=== PATIENT | female | born 1975 | race Caucasian/White ===

== ENCOUNTER → 2016-03-14 | Outpatient (CLI) | payer OTHER ==
[~2016-03-14] MED LIST: ABILIFY5 MG PO; AMINOPHYLLIN200 MG PO; ASMANEX HF100 MCG/Ac INH; AVPAK AZITHROM250 M1 PO; CELECOXIB200 M1 PO; CIPROFLOXACIN500 MG PO; CYCLOBENZAPRINE10 MG PO; DAYPRO600 M1 PO; DEPO PROVER150 MG/M1 IM; GABAPENTIN TAB600 MG PO; GEMFIBROZIL600 MG PO; GOOD NEIGHBOR L10 MG PO; HYDROXYZINE PAM25 MG PO; LOMOTIL 0.025 M1 TA1 PO; MACROBID100 M1 PO; MELOXICAM7.5 MG PO; MOTRIN800 MG PO; NAPROSYN500 MG PO; NOVAPLUS V0.09 MG/Ac INH; OMEPRAZOLE D/R20 MG PO; ROBAXIN750 MG PO; SYMBICORT1 AE1 INH; TRAMADOL HCL50 MG PO; VISTARIL25 M2 PO; ZOFRAN ODT4 MG SL
== END | disposition home or self-care (01) ==
LOC: CARD 14:00 → EDSTATUS 14:00 → CARD 14:13
DX: R07.9 Chest pain, unspecified (principal); Z82.49 Family history of ischemic heart disease and other diseases of the circulatory system

== ENCOUNTER 2016-05-07 21:14 | Emergency (ER) | payer OTHER ==
[~2016-05-07] VITALS: Ht 157.4 cm; Wt 64.4 kg
[~2016-05-07 21:14] MED LIST changes: -ASMANEX HF100 MCG/Ac INH; -AVPAK AZITHROM250 M1 PO; -CELECOXIB200 M1 PO; -GEMFIBROZIL600 MG PO; -GOOD NEIGHBOR L10 MG PO; -HYDROXYZINE PAM25 MG PO; -MELOXICAM7.5 MG PO; -NOVAPLUS V0.09 MG/Ac INH
[2016-05-07] MEDS ORDERED: ASMANEX HF100 MCG/Ac INH (21:23)
[2016-05-07] MEDS ORDERED: GEMFIBROZIL600 MG PO (21:24)
[2016-05-07] MEDS ORDERED: HYDROXYZINE PAM25 MG PO (21:28)
[2016-05-07] MEDS ORDERED: GOOD NEIGHBOR L10 MG PO (21:29)
[2016-05-07] MEDS ORDERED: CELECOXIB200 M1 PO (21:29)
[2016-05-07] MEDS ORDERED: NOVAPLUS V0.09 MG/Ac INH (21:29)
[2016-05-07] MEDS ORDERED: AVPAK AZITHROM250 M1 PO (21:30)
[2016-05-07] MEDS ORDERED: MELOXICAM7.5 MG PO (22:39)
== END 2016-05-07 22:41 | disposition home or self-care (01) ==
LOC: ED 21:14
DX: R09.1 Pleurisy (principal); Z88.1 Allergy status to other antibiotic agents; Z88.6 Allergy status to analgesic agent; Z88.8 Allergy status to other drugs, medicaments and biological substances; Z90.49 Acquired absence of other specified parts of digestive tract; Z79.899 Other long term (current) drug therapy

== ENCOUNTER 2016-05-13 17:51 | Emergency (ER) | payer OTHER ==
[~2016-05-13] VITALS: Ht 157.4 cm; Wt 66.7 kg
[~2016-05-13 17:51] MED LIST changes: +ASMANEX HF100 MCG/Ac INH; +AVPAK AZITHROM250 M1 PO; +CELECOXIB200 M1 PO; +GEMFIBROZIL600 MG PO; +GOOD NEIGHBOR L10 MG PO; +HYDROXYZINE PAM25 MG PO; +MELOXICAM7.5 MG PO; +NOVAPLUS V0.09 MG/Ac INH
[2016-05-13 18:22] LABS: HEMATOCRIT 38.7 % (37.0-47.0); HEMOGLOBIN 13.5 g/dl (12.0-16.0); MEAN CELL VOLUME 82.7 fl (81.0-99.0); MEAN CORPUSCULAR HGB 28.8 pg (27.0-31.0); MEAN CORPUSCULAR HGB CONC 34.9 g/dl (33.0-37.0); MEAN PLATELET VOLUME 12.5 fl (9.6-12.3); PLATELET COUNT AUTOMATED 212 10*3/uL (130-400); RED BLOOD COUNT 4.68 10*6/uL (4.10-5.10); RED CELL DISTRI WIDTH 13.9 % (0-14.5); WHITE BLOOD COUNT 10.8 10*3/uL (4.8-10.8)
[2016-05-13 18:30] LABS: PROTHROMBIN TIME 10.1 SECONDS (9.0-12.4)
[2016-05-13 18:39] LABS: ALBUMIN 3.4 gm/dl (3.1-4.5); ALKALINE PHOSPHATASE 156 U/L (45-117); BILIRUBIN, TOTAL 0.5 mg/dl (0.2-1.0); BUN 9 mg/dl (7-24); CARBON DIOXIDE 25 mmol/L (21-32); CHLORIDE 104 mmol/L (98-107); CPK 41 U/L (26-192); EST GLOM FILT AFRICAN AMERICAN > 60 ml/min; GLUCOSE 143 mg/dL (65-99); MAGNESIUM 1.8 mg/dL (1.5-2.1); POTASSIUM 3.3 mmol/L (3.5-5.1); SGOT/AST 109 IU/L (3-35); SGPT/ALT 148 U/L (12-78); SODIUM 140 mmol/L (136-145); TOTAL PROTEIN 7.2 gm/dL (6.4-8.2)
[2016-05-13 18:40] LABS: CKMB < 0.5 ng/ml (0.5-3.6); TROPONIN I < 0.015 ng/ml (<0.045)
[2016-05-13 18:50] LABS: ATYPICAL LYMPHS 2 % (0-0); NEUTROPHILS 40 % (47-73); TOTAL CELLS COUNTED 100 #CELLS
[2016-05-13 18:51] LABS: PLATELET SUFFICIENCY NORMAL (NORMAL); TEAR DROP CELLS FEW
[2016-05-13 18:57] LABS: NEUTROPHIL # 4.3 10*3/uL (2.3-7.9)
[2016-05-13 18:58] LABS: LYMPHOCYTE # 6.2 10*3/uL (1.3-4.4)
[2016-05-13 18:59] LABS: MONOCYTE # 0.3 10*3/uL (0.1-1.0)
[2016-05-13 19:21] VITALS: BP 135/88
[2016-05-13 19:57] LABS: BILIRUBIN NEGATIVE (NEGATIVE); BLOOD NEGATIVE (NEGATIVE); CLARITY SL CLOUDY (CLEAR); COLOR YELLOW (YELLOW); GLUCOSE NEGATIVE (NEGATIVE); KETONE TRACE (NEGATIVE); LEUKO ESTERASE NEGATIVE (NEGATIVE); NITRITE NEGATIVE (NEGATIVE); PROTEIN 1+ (NEGATIVE); SPECIFIC GRAVITY 1.025 (1.005-1.030)
[2016-05-13 20:05] LABS: BACTERIA 2+; CALCIUM OXALATE CRYSTALS 3+; EPITHELIAL CELLS 25-30; URINE REFLEX COMMENT YES (NO)
[2016-05-13] MEDS ORDERED: CYCLOBENZAPRINE5 M3 PO (20:16)
[2016-05-13] MEDS ORDERED: CEPHALEXIN500 M1 PO (20:17)
== END 2016-05-13 20:43 | disposition home or self-care (01) ==
LOC: ED 17:51
PROVIDERS: Emergency Medicine; Nurse Practitioner Family
DX: M94.0 Chondrocostal junction syndrome [Tietze] (principal); Z88.1 Allergy status to other antibiotic agents; Z88.6 Allergy status to analgesic agent; Z88.8 Allergy status to other drugs, medicaments and biological substances; Z90.49 Acquired absence of other specified parts of digestive tract; Z79.899 Other long term (current) drug therapy

== ENCOUNTER → 2016-05-16 | Outpatient (CLI) | payer OTHER ==
[~2016-05-16] MED LIST changes: +CEPHALEXIN500 M1 PO; +CYCLOBENZAPRINE5 M3 PO
== END | disposition home or self-care (01) ==
LOC: RAD 17:24
DX: M41.84 Other forms of scoliosis, thoracic region (principal); M41.86 Other forms of scoliosis, lumbar region; M54.5 Low back pain; M54.6 Pain in thoracic spine

== ENCOUNTER → 2016-05-22 | Outpatient (CLI) | payer OTHER | END | disposition home or self-care (01) | LOC: ORTHO 04:00 | DX: M54.5 Low back pain (principal); M25.552 Pain in left hip ==

== ENCOUNTER → 2016-06-12 | Outpatient (CLI) | payer OTHER | END | disposition home or self-care (01) | LOC: MRI 06-09 11:00 | DX: M41.84 Other forms of scoliosis, thoracic region (principal); M25.552 Pain in left hip; M54.5 Low back pain; M25.78 Osteophyte, vertebrae ==

== ENCOUNTER 2016-06-23 14:52 | Emergency (ER) | payer OTHER ==
[~2016-06-23] VITALS: Ht 157.4 cm; Wt 66.7 kg
[2016-06-23 14:57] VITALS: BP 151/88
[2016-06-23 15:25] LABS: HEMATOCRIT 45.1 % (37.0-47.0); HEMOGLOBIN 15.2 g/dl (12.0-16.0); MEAN CELL VOLUME 82.4 fl (81.0-99.0); MEAN CORPUSCULAR HGB 27.8 pg (27.0-31.0); MEAN CORPUSCULAR HGB CONC 33.7 g/dl (33.0-37.0); MEAN PLATELET VOLUME 11.4 fl (9.6-12.3); PLATELET COUNT AUTOMATED 332 10*3/uL (130-400); RED BLOOD COUNT 5.47 10*6/uL (4.10-5.10); RED CELL DISTRI WIDTH 13.2 % (0-14.5); WHITE BLOOD COUNT 11.4 10*3/uL (4.8-10.8)
[2016-06-23 15:40] LABS: ALBUMIN 4.2 gm/dl (3.1-4.5); ALKALINE PHOSPHATASE 106 U/L (45-117); BILIRUBIN, TOTAL 1.1 mg/dl (0.2-1.0); BUN 14 mg/dl (7-24); CARBON DIOXIDE 26 mmol/L (21-32); CHLORIDE 103 mmol/L (98-107); EST GLOM FILT AFRICAN AMERICAN > 60 ml/min; GLUCOSE 122 mg/dL (65-99); POTASSIUM 3.4 mmol/L (3.5-5.1); SGOT/AST 50 IU/L (3-35); SGPT/ALT 62 U/L (12-78); SODIUM 140 mmol/L (136-145); TOTAL PROTEIN 8.4 gm/dL (6.4-8.2)
[2016-06-23 15:47] LABS: ATYPICAL LYMPHS 3 % (0-0); EOSINOPHIL # 0.1 10*3/uL (0-0.4); EOSINOPHILS 1 % (1-4); LYMPHOCYTE # 7.6 10*3/uL (1.3-4.4); MONOCYTE # 0.6 10*3/uL (0.1-1.0); NEUTROPHIL # 3.1 10*3/uL (2.3-7.9); NEUTROPHILS 27 % (47-73); PLATELET SUFFICIENCY NORMAL (NORMAL); TOTAL CELLS COUNTED 100 #CELLS
[2016-06-23 16:16] LABS: BILIRUBIN NEGATIVE (NEGATIVE); BLOOD NEGATIVE (NEGATIVE); CLARITY CLEAR (CLEAR); COLOR YELLOW (YELLOW); GLUCOSE NEGATIVE (NEGATIVE); KETONE NEGATIVE (NEGATIVE); LEUKO ESTERASE 1+ (NEGATIVE); NITRITE NEGATIVE (NEGATIVE); PROTEIN NEGATIVE (NEGATIVE)
[2016-06-23 16:23] LABS: BACTERIA 1+; CALCIUM OXALATE CRYSTALS 1+; EPITHELIAL CELLS 30-35; RBC 0-2 rbc/hpf (0-2); URINE REFLEX COMMENT YES (NO)
[2016-06-23] MEDS ORDERED: MACROBID100 M1 PO (16:33)
== END 2016-06-23 16:40 | disposition home or self-care (01) ==
LOC: ED 14:52
PROVIDERS: Nurse Practitioner Family
DX: N39.0 Urinary tract infection, site not specified (principal); R03.0 Elevated blood-pressure reading, without diagnosis of hypertension; Z88.1 Allergy status to other antibiotic agents; Z88.6 Allergy status to analgesic agent; Z88.8 Allergy status to other drugs, medicaments and biological substances; Z79.899 Other long term (current) drug therapy

== ENCOUNTER 2016-07-03 15:21 | Emergency (ER) | payer OTHER ==
[~2016-07-03] VITALS: Ht 157.4 cm; Wt 65.8 kg
[2016-07-03 15:37] VITALS: BP 150/90
[2016-07-03 17:35] LABS: BILIRUBIN NEGATIVE (NEGATIVE); BLOOD NEGATIVE (NEGATIVE); CLARITY CLEAR (CLEAR); COLOR YELLOW (YELLOW); GLUCOSE NEGATIVE (NEGATIVE); KETONE NEGATIVE (NEGATIVE); LEUKO ESTERASE NEGATIVE (NEGATIVE); NITRITE NEGATIVE (NEGATIVE); PROTEIN NEGATIVE (NEGATIVE); SPECIFIC GRAVITY 1.025 (1.005-1.030); UROBILINOGEN 0.2 E.U./dl (0.2-1.0)
[2016-07-03 17:43] LABS: BACTERIA 2+; CALCIUM OXALATE CRYSTALS 2+; URINE REFLEX COMMENT YES (NO)
[2016-07-03] MEDS ORDERED: MEDROL DOSEPAK4 MG PO (17:48)
[2016-07-03] MEDS ORDERED: CYCLOBENZAPRINE5 M3 PO (17:48)
== END 2016-07-03 15:44 | disposition home or self-care (01) ==
LOC: ED 15:21
PROVIDERS: Physician Assistant
DX: M54.16 Radiculopathy, lumbar region (principal); Z88.1 Allergy status to other antibiotic agents; Z88.6 Allergy status to analgesic agent; Z88.8 Allergy status to other drugs, medicaments and biological substances; Z90.49 Acquired absence of other specified parts of digestive tract; Z79.899 Other long term (current) drug therapy

== ENCOUNTER 2016-07-11 21:48 | Emergency (ER) | payer OTHER ==
[~2016-07-11] VITALS: Ht 157.4 cm; Wt 67.1 kg
[~2016-07-11 21:48] MED LIST changes: +MEDROL DOSEPAK4 MG PO
[2016-07-11 23:17] LABS: HEMATOCRIT 41.4 % (37.0-47.0); HEMOGLOBIN 14.1 g/dl (12.0-16.0); MEAN CELL VOLUME 82.5 fl (81.0-99.0); MEAN CORPUSCULAR HGB 28.1 pg (27.0-31.0); MEAN CORPUSCULAR HGB CONC 34.1 g/dl (33.0-37.0); MEAN PLATELET VOLUME 10.8 fl (9.6-12.3); PLATELET COUNT AUTOMATED 340 10*3/uL (130-400); RED BLOOD COUNT 5.02 10*6/uL (4.10-5.10); RED CELL DISTRI WIDTH 13.8 % (0-14.5); WHITE BLOOD COUNT 10.2 10*3/uL (4.8-10.8)
[2016-07-11 23:26] LABS: INTERNATIONAL NORM RATIO 0.9 (2.0-3.5); PROTHROMBIN TIME 9.4 SECONDS (9.0-12.4)
[2016-07-11 23:31] LABS: ALBUMIN 3.6 gm/dl (3.1-4.5); ALKALINE PHOSPHATASE 104 U/L (45-117); BILIRUBIN, DIRECT < 0.1 mg/dL (0.0-0.2); BILIRUBIN, TOTAL 0.5 mg/dl (0.2-1.0); C-REACTIVE PROTEIN 0.31 MG/DL (0-0.3); SGOT/AST 29 IU/L (3-35); SGPT/ALT 45 U/L (12-78); TOTAL PROTEIN 7.3 gm/dL (6.4-8.2)
[2016-07-11 23:32] LABS: HEMOGLOBIN A1c 7.2 % (4.8-5.6)
[2016-07-11 23:35] LABS: EOSINOPHIL # 0.1 10*3/uL (0-0.4); EOSINOPHILS 1 % (1-4); LYMPHOCYTE # 4.4 10*3/uL (1.3-4.4); MONOCYTE # 0.6 10*3/uL (0.1-1.0); NEUTROPHIL # 5.1 10*3/uL (2.3-7.9); NEUTROPHILS 50 % (47-73); PLATELET SUFFICIENCY NORMAL (NORMAL); TOTAL CELLS COUNTED 100 #CELLS
[2016-07-11 23:40] LABS: BILIRUBIN NEGATIVE (NEGATIVE); BLOOD NEGATIVE (NEGATIVE); CLARITY CLEAR (CLEAR); COLOR YELLOW (YELLOW); GLUCOSE 3+ (NEGATIVE); KETONE NEGATIVE (NEGATIVE); LEUKO ESTERASE NEGATIVE (NEGATIVE); NITRITE NEGATIVE (NEGATIVE); PH 5.5 (5.0-9.0); PROTEIN NEGATIVE (NEGATIVE); SPECIFIC GRAVITY <= 1.005 (1.005-1.030); UROBILINOGEN 0.2 E.U./dl (0.2-1.0)
[2016-07-11 23:51] LABS: WBC 0-2 wbc/hpf (0-5); YEAST TRACE
[2016-07-11 23:52] LABS: URINE REFLEX COMMENT NO (NO)
[2016-07-12 00:20] LABS: POTASSIUM 3.8 mmol/L (3.5-5.1)
[2016-07-12] MEDS ORDERED: GLUCOPHAGE500 M1 PO (01:27)
[2016-07-12 01:50] VITALS: BP 112/64
== END 2016-07-12 02:25 | disposition home or self-care (01) ==
LOC: ED 21:48
PROVIDERS: Emergency Medicine Emergency Medical Services
DX: R73.9 Hyperglycemia, unspecified (principal); E11.9 Type 2 diabetes mellitus without complications; Z88.8 Allergy status to other drugs, medicaments and biological substances; Z88.6 Allergy status to analgesic agent; Z79.899 Other long term (current) drug therapy; Z87.19 Personal history of other diseases of the digestive system

== ENCOUNTER 2016-07-14 12:56 | Emergency (ER) | payer OTHER ==
[~2016-07-14] VITALS: Wt 66.2 kg
[~2016-07-14 12:56] MED LIST changes: +GLUCOPHAGE500 M1 PO
[2016-07-14 13:06] VITALS: BP 140/99
[2016-07-14 13:43] LABS: HEMATOCRIT 45.2 % (37.0-47.0); HEMOGLOBIN 15.1 g/dl (12.0-16.0); MEAN CELL VOLUME 82.9 fl (81.0-99.0); MEAN CORPUSCULAR HGB 27.7 pg (27.0-31.0); MEAN CORPUSCULAR HGB CONC 33.4 g/dl (33.0-37.0); MEAN PLATELET VOLUME 10.6 fl (9.6-12.3); PLATELET COUNT AUTOMATED 364 10*3/uL (130-400); RED BLOOD COUNT 5.45 10*6/uL (4.10-5.10); WHITE BLOOD COUNT 9.1 10*3/uL (4.8-10.8)
[2016-07-14 13:58] LABS: ALBUMIN 4.1 gm/dl (3.1-4.5); ALKALINE PHOSPHATASE 109 U/L (45-117); BILIRUBIN, TOTAL 0.8 mg/dl (0.2-1.0); BUN 9 mg/dl (7-24); CARBON DIOXIDE 23 mmol/L (21-32); CHLORIDE 100 mmol/L (98-107); EST GLOM FILT AFRICAN AMERICAN > 60 ml/min; GLUCOSE 201 mg/dL (65-99); POTASSIUM 3.8 mmol/L (3.5-5.1); SGOT/AST 35 IU/L (3-35); SGPT/ALT 55 U/L (12-78); SODIUM 136 mmol/L (136-145); TOTAL PROTEIN 8.4 gm/dL (6.4-8.2)
[2016-07-14 14:03] LABS: ATYPICAL LYMPHS 2 % (0-0); LYMPHOCYTE # 5.8 10*3/uL (1.3-4.4); MONOCYTE # 0.4 10*3/uL (0.1-1.0); NEUTROPHIL # 2.9 10*3/uL (2.3-7.9); NEUTROPHILS 32 % (47-73); PLATELET SUFFICIENCY NORMAL (NORMAL); TOTAL CELLS COUNTED 100 #CELLS
[2016-07-14 14:06] LABS: BILIRUBIN NEGATIVE (NEGATIVE); BLOOD NEGATIVE (NEGATIVE); CLARITY CLEAR (CLEAR); COLOR YELLOW (YELLOW); GLUCOSE NEGATIVE (NEGATIVE); KETONE TRACE (NEGATIVE); LEUKO ESTERASE NEGATIVE (NEGATIVE); NITRITE NEGATIVE (NEGATIVE); PH 5.5 (5.0-9.0); PROTEIN 1+ (NEGATIVE); UROBILINOGEN 0.2 E.U./dl (0.2-1.0)
[2016-07-14 14:23] LABS: BACTERIA TRACE; EPITHELIAL CELLS 16-20; URINE REFLEX COMMENT NO (NO)
== END 2016-07-14 14:35 | disposition home or self-care (01) ==
LOC: ED 12:56
PROVIDERS: Nurse Practitioner Family
DX: K08.89 Other specified disorders of teeth and supporting structures (principal); R73.9 Hyperglycemia, unspecified; R03.0 Elevated blood-pressure reading, without diagnosis of hypertension; Z90.49 Acquired absence of other specified parts of digestive tract; Z98.890 Other specified postprocedural states; Z79.899 Other long term (current) drug therapy; Z88.6 Allergy status to analgesic agent; Z88.8 Allergy status to other drugs, medicaments and biological substances

== ENCOUNTER 2016-07-17 20:34 | Emergency (ER) | payer OTHER ==
[~2016-07-17] VITALS: Ht 160 cm; Wt 65.8 kg
[2016-07-17 20:40] VITALS: BP 151/87
[2016-07-17] MEDS ORDERED: CEFDINIR300 MG PO (20:41)
[2016-07-17] MEDS ORDERED: FLONASE ALLERG9.9 ML NS (22:27)
[2016-07-17] MEDS ORDERED: ZYRTEC10 MG PO (22:27)
== END 2016-07-17 22:33 | disposition home or self-care (01) ==
LOC: ED 20:34
DX: J02.9 Acute pharyngitis, unspecified (principal); L01.00 Impetigo, unspecified; R05 Cough; Z88.1 Allergy status to other antibiotic agents; Z88.6 Allergy status to analgesic agent; Z88.8 Allergy status to other drugs, medicaments and biological substances; Z90.49 Acquired absence of other specified parts of digestive tract; Z79.899 Other long term (current) drug therapy

== ENCOUNTER 2016-07-22 10:10 | Emergency (ER) | payer OTHER ==
[~2016-07-22] VITALS: Ht 162.5 cm; Wt 65.3 kg
[~2016-07-22 10:10] MED LIST changes: +CEFDINIR300 MG PO; +FLONASE ALLERG9.9 ML NS; +ZYRTEC10 MG PO
[2016-07-22 12:02] VITALS: BP 129/91
== END 2016-07-22 14:08 | disposition home or self-care (01) ==
LOC: ED 10:10
DX: S00.03XA Contusion of scalp, initial encounter (principal); S16.1XXA Strain of muscle, fascia and tendon at neck level, initial encounter; R42 Dizziness and giddiness; R03.0 Elevated blood-pressure reading, without diagnosis of hypertension; Z88.6 Allergy status to analgesic agent; Z88.1 Allergy status to other antibiotic agents; Z88.8 Allergy status to other drugs, medicaments and biological substances; Z90.49 Acquired absence of other specified parts of digestive tract; Z79.899 Other long term (current) drug therapy; W22.8XXA Striking against or struck by other objects, initial encounter; Y93.89 Activity, other specified; Y92.9 Unspecified place or not applicable; Y99.9 Unspecified external cause status

== ENCOUNTER 2016-08-22 10:43 | Emergency (ER) | payer OTHER ==
[~2016-08-22] VITALS: Ht 157.4 cm; Wt 64.4 kg
[2016-08-22 10:52] VITALS: BP 152/99
[2016-08-22] MEDS ORDERED: PREDNISONE10 MG PO (10:56)
== END 2016-08-22 11:37 | disposition home or self-care (01) ==
LOC: ED 10:43
DX: L30.9 Dermatitis, unspecified (principal); R03.0 Elevated blood-pressure reading, without diagnosis of hypertension; Z88.6 Allergy status to analgesic agent; Z88.8 Allergy status to other drugs, medicaments and biological substances; Z90.49 Acquired absence of other specified parts of digestive tract; Z79.899 Other long term (current) drug therapy

== ENCOUNTER 2016-08-28 | Emergency (ER) | payer OTHER ==
[~2016-08-28] VITALS: Ht 162.5 cm; Wt 63.5 kg
[~2016-08-28] MED LIST changes: +PREDNISONE10 MG PO
[2016-08-28 00:57] LABS: BILIRUBIN NEGATIVE (NEGATIVE); BLOOD NEGATIVE (NEGATIVE); CLARITY CLEAR (CLEAR); COLOR YELLOW (YELLOW); GLUCOSE 3+ (NEGATIVE); KETONE TRACE (NEGATIVE); LEUKO ESTERASE NEGATIVE (NEGATIVE); NITRITE NEGATIVE (NEGATIVE); PROTEIN NEGATIVE (NEGATIVE); UROBILINOGEN 0.2 E.U./dl (0.2-1.0)
[2016-08-28 00:58] LABS: BASO # 0.1 10*3/uL (0.0-0.1); BASO % 0.8 % (0.0-1.0); EOS % 0.3 % (1.0-4.0); HEMATOCRIT 41.1 % (37.0-47.0); HEMOGLOBIN 14.1 g/dl (12.0-16.0); IG # 0.2 10*3/uL (0.0-0.1); LYMPH # 4.5 10*3/uL (1.3-4.4); LYMPH % 37.8 % (27.0-41.0); MEAN CELL VOLUME 80.1 fl (81.0-99.0); MEAN CORPUSCULAR HGB 27.5 pg (27.0-31.0); MEAN CORPUSCULAR HGB CONC 34.3 g/dl (33.0-37.0); MEAN PLATELET VOLUME 11.5 fl (9.6-12.3); MONO # 0.5 10*3/uL (0.1-1.0); MONO % 4.1 % (3.0-9.0); NEUT # 6.7 10*3/uL (2.3-7.9); NEUT % 55.4 % (47.0-73.0); PLATELET COUNT AUTOMATED 379 10*3/uL (130-400); RED BLOOD COUNT 5.13 10*6/uL (4.10-5.10); RED CELL DISTRI WIDTH 14.2 % (0-14.5)
[2016-08-28 01:04] LABS: EPITHELIAL CELLS 15-20
[2016-08-28 01:05] LABS: CALCIUM OXALATE CRYSTALS 1+; RBC 0-2 rbc/hpf (0-2); URINE REFLEX COMMENT NO (NO)
[2016-08-28 01:15] LABS: ALBUMIN 3.8 gm/dl (3.1-4.5); ALKALINE PHOSPHATASE 83 U/L (45-117); BILIRUBIN, TOTAL 0.7 mg/dl (0.2-1.0); BUN 19 mg/dl (7-24); CARBON DIOXIDE 25 mmol/L (21-32); CHLORIDE 99 mmol/L (98-107); EST GLOM FILT AFRICAN AMERICAN > 60 ml/min; GLUCOSE 249 mg/dL (65-99); POTASSIUM 4.1 mmol/L (3.5-5.1); SGOT/AST 14 IU/L (3-35); SGPT/ALT 28 U/L (12-78); SODIUM 137 mmol/L (136-145); TOTAL PROTEIN 7.5 gm/dL (6.4-8.2)
[2016-08-28 01:16] LABS: TROPONIN I < 0.015 ng/ml (<0.045)
[2016-08-28 01:20] VITALS: BP 148/92
== END 2016-08-28 01:43 | disposition home or self-care (01) ==
LOC: ED
PROVIDERS: Nurse Practitioner Family
DX: R07.89 Other chest pain (principal); E11.65 Type 2 diabetes mellitus with hyperglycemia; Z79.899 Other long term (current) drug therapy; Z88.8 Allergy status to other drugs, medicaments and biological substances; Z88.6 Allergy status to analgesic agent

== ENCOUNTER 2016-09-14 18:23 | Emergency (ER) | payer OTHER ==
[~2016-09-14] VITALS: Ht 157.4 cm; Wt 64.9 kg
[2016-09-14 19:12] VITALS: BP 125/78
[2016-09-14] MEDS ORDERED: CEPHALEXIN500 M1 PO (19:24)
[2016-09-14] MEDS ORDERED: Bactroban Oint22 GM T (19:24)
== END 2016-09-14 22:01 | disposition home or self-care (01) ==
LOC: ED 18:23
DX: L01.00 Impetigo, unspecified (principal); Z88.6 Allergy status to analgesic agent; Z88.8 Allergy status to other drugs, medicaments and biological substances; Z90.49 Acquired absence of other specified parts of digestive tract; Z79.899 Other long term (current) drug therapy

== ENCOUNTER 2016-09-30 17:16 | Emergency (ER) | payer OTHER ==
[~2016-09-30] VITALS: Ht 157.4 cm; Wt 64.9 kg
[~2016-09-30 17:16] MED LIST changes: +Bactroban Oint22 GM T
[2016-09-30 17:22] VITALS: BP 133/84
== END 2016-09-30 19:36 | disposition home or self-care (01) ==
LOC: ED 17:16
DX: S86.912A Strain of unspecified muscle(s) and tendon(s) at lower leg level, left leg, initial encounter (principal); S70.02XA Contusion of left hip, initial encounter; Z88.1 Allergy status to other antibiotic agents; Z88.6 Allergy status to analgesic agent; Z88.8 Allergy status to other drugs, medicaments and biological substances; Z90.49 Acquired absence of other specified parts of digestive tract; W18.30XA Fall on same level, unspecified, initial encounter; Y93.89 Activity, other specified; Y92.9 Unspecified place or not applicable; Y99.9 Unspecified external cause status

== ENCOUNTER 2016-10-15 22:55 | Emergency (ER) | payer OTHER ==
[~2016-10-15] VITALS: Ht 157.4 cm; Wt 66.7 kg
[2016-10-15 23:44] LABS: HEMATOCRIT 37.1 % (37.0-47.0); HEMOGLOBIN 13.2 g/dl (12.0-16.0); MEAN CELL VOLUME 82.8 fl (81.0-99.0); MEAN CORPUSCULAR HGB 29.5 pg (27.0-31.0); MEAN CORPUSCULAR HGB CONC 35.6 g/dl (33.0-37.0); MEAN PLATELET VOLUME 11.5 fl (9.6-12.3); PLATELET COUNT AUTOMATED 331 10*3/uL (130-400); RED BLOOD COUNT 4.48 10*6/uL (4.10-5.10); RED CELL DISTRI WIDTH 13.3 % (0-14.5)
[2016-10-16] LABS: ALBUMIN 4.4 gm/dl (3.1-4.5); ALKALINE PHOSPHATASE 86 U/L (45-117); BUN 12 mg/dl (7-24); CHLORIDE 106 mmol/L (98-107); CREATININE 0.88 mg/dL (0.55-1.02); LIPASE 362 U/L (73-393); MAGNESIUM 2.1 mg/dL (1.5-2.1); POTASSIUM 3.1 mmol/L (3.5-5.1); SGOT/AST 23 IU/L (3-35); SGPT/ALT 38 U/L (12-78); SODIUM 139 mmol/L (136-145); TOTAL PROTEIN 8.2 gm/dL (6.4-8.2)
[2016-10-16 00:02] LABS: B-hCG (QUALITATIVE) NEGATIVE (NEGATIVE)
[2016-10-16 00:06] LABS: TROPONIN I < 0.015 ng/ml (<0.045)
[2016-10-16 00:08] LABS: BASOPHILS 1 % (0-1); TOTAL CELLS COUNTED 100 #CELLS
[2016-10-16 00:09] LABS: PLATELET SUFFICIENCY NORMAL (NORMAL); POLYCHROMASIA SLIGHT
[2016-10-16 00:16] VITALS: BP 157/90
[2016-10-16 01:28] LABS: BILIRUBIN NEGATIVE (NEGATIVE); BLOOD NEGATIVE (NEGATIVE); CLARITY CLEAR (CLEAR); COLOR YELLOW (YELLOW); GLUCOSE NEGATIVE (NEGATIVE); KETONE NEGATIVE (NEGATIVE); LEUKO ESTERASE NEGATIVE (NEGATIVE); NITRITE NEGATIVE (NEGATIVE); PH 5.5 (5.0-9.0); SPECIFIC GRAVITY <= 1.005 (1.005-1.030); UROBILINOGEN 0.2 E.U./dl (0.2-1.0)
[2016-10-16 01:35] LABS: BACTERIA TRACE; RBC 0-2 rbc/hpf (0-2); WBC 0-2 wbc/hpf (0-5)
[2016-10-17] MEDS ORDERED: CYCLOBENZAPRINE10 MG PO (19:14)
== END 2016-10-16 01:57 | disposition home or self-care (01) ==
LOC: ED 22:55
PROVIDERS: Emergency Medicine Emergency Medical Services
DX: G43.909 Migraine, unspecified, not intractable, without status migrainosus (principal); I15.9 Secondary hypertension, unspecified; Z88.6 Allergy status to analgesic agent; Z88.8 Allergy status to other drugs, medicaments and biological substances; Z79.899 Other long term (current) drug therapy

== ENCOUNTER 2016-10-17 17:34 | Emergency (ER) | payer OTHER ==
[~2016-10-17] VITALS: Wt 64.9 kg
[2016-10-17 17:43] VITALS: BP 154/84
[2016-10-17] MEDS ORDERED: CYCLOBENZAPRINE10 MG PO (19:14)
== END 2016-10-17 19:19 | disposition home or self-care (01) ==
LOC: ED 17:34
DX: M54.30 Sciatica, unspecified side (principal); Z88.6 Allergy status to analgesic agent; Z88.8 Allergy status to other drugs, medicaments and biological substances; Z79.899 Other long term (current) drug therapy; W10.8XXA Fall (on) (from) other stairs and steps, initial encounter; Y93.89 Activity, other specified; Y92.811 Bus as the place of occurrence of the external cause; Y99.8 Other external cause status

== ENCOUNTER → 2016-12-07 | Outpatient (CLI) | payer OTHER ==
[2016-12-07 11:31] LABS: BILIRUBIN NEGATIVE (NEGATIVE); BLOOD NEGATIVE (NEGATIVE); CLARITY SL CLOUDY (CLEAR); COLOR YELLOW (YELLOW); GLUCOSE NEGATIVE (NEGATIVE); KETONE NEGATIVE (NEGATIVE); LEUKO ESTERASE NEGATIVE (NEGATIVE); NITRITE NEGATIVE (NEGATIVE); SPECIFIC GRAVITY 1.025 (1.005-1.030); UROBILINOGEN 0.2 E.U./dl (0.2-1.0)
[2016-12-07 11:41] LABS: BACTERIA TRACE; EPITHELIAL CELLS 21-30
[2016-12-07 11:42] LABS: RBC 0-2 rbc/hpf (0-2)
[2016-12-07 11:49] LABS: ALBUMIN 4.7 gm/dl (3.1-4.5); ALKALINE PHOSPHATASE 101 U/L (45-117); BILIRUBIN, DIRECT 0.2 mg/dL (0.0-0.2); BUN 20 mg/dl (7-24); CHLORIDE 101 mmol/L (98-107); CHOLESTEROL 145 mg/dL (<200); CREATININE 0.85 mg/dL (0.55-1.02); HDL CHOLESTEROL 48 mg/dl (40-60); LDL CHOLESTEROL 42 mg/dL (9-159); POTASSIUM 3.5 mmol/L (3.5-5.1); SGOT/AST 25 IU/L (3-35); SGPT/ALT 56 U/L (12-78); SODIUM 135 mmol/L (136-145); TOTAL PROTEIN 8.6 gm/dL (6.4-8.2); TRIGLYCERIDES 276 mg/dl (<150); VLDL CHOLESTEROL 55 mg/dL (6-40)
[2016-12-07 12:11] LABS: VITAMIN D, 25-HYDROXY 20.7 ng/mL (30-100)
== END | disposition home or self-care (01) ==
LOC: LAB 10:49
PROVIDERS: Internal Medicine; Obstetrics & Gynecology
DX: N39.0 Urinary tract infection, site not specified (principal); E11.40 Type 2 diabetes mellitus with diabetic neuropathy, unspecified; E11.65 Type 2 diabetes mellitus with hyperglycemia; E55.9 Vitamin D deficiency, unspecified; E78.5 Hyperlipidemia, unspecified; R63.5 Abnormal weight gain

== ENCOUNTER → 2016-12-29 | Outpatient (CLI) | payer OTHER ==
[~2016-12-29] MED LIST changes: +LOPID600 M1 PO; +MULTIPLE VITAM1 EAC1 PO; +NATURE'S BLEND F1 MG PO; +PROZAC20 MG PO; +VITAMIN D400 I1 PO
== END | disposition home or self-care (01) ==
LOC: CT 03:09
DX: R91.1 Solitary pulmonary nodule (principal); J44.9 Chronic obstructive pulmonary disease, unspecified; Z90.49 Acquired absence of other specified parts of digestive tract

== ENCOUNTER → 2017-01-03 | Day surgery (SDC) | payer OTHER ==
[~2017-01-03] VITALS: Ht 157.4 cm; Wt 68.5 kg
[~2017-01-03] MED LIST changes: +DICYCLOMINE HCL10 MG PO
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
[2017-01-03 07:02] VITALS: BP 138/74
[2017-01-03 08:00] VITALS: BP 118/71
[2017-01-03 08:15] VITALS: BP 116/65
[2017-01-03 08:26] VITALS: BP 118/68
== END | disposition home or self-care (01) ==
LOC: SDC 12-29 14:00
DX: K51.90 Ulcerative colitis, unspecified, without complications (principal); E11.9 Type 2 diabetes mellitus without complications; I10 Essential (primary) hypertension; J45.909 Unspecified asthma, uncomplicated; F31.9 Bipolar disorder, unspecified; Z90.49 Acquired absence of other specified parts of digestive tract; G43.909 Migraine, unspecified, not intractable, without status migrainosus

== ENCOUNTER 2017-01-04 16:38 | Emergency (ER) | payer OTHER ==
[~2017-01-04] VITALS: Wt 70.3 kg
[2017-01-04 16:44] VITALS: BP 147/100
[2017-01-04 18:35] LABS: BASO % 0.5 % (0.0-1.0); EOS # 0.1 10*3/uL (0.0-0.4); EOS % 0.8 % (1.0-4.0); HEMATOCRIT 37.2 % (37.0-47.0); HEMOGLOBIN 12.9 g/dl (12.0-16.0); LYMPH % 57.3 % (27.0-41.0); MEAN CELL VOLUME 85.7 fl (81.0-99.0); MEAN CORPUSCULAR HGB 29.7 pg (27.0-31.0); MEAN CORPUSCULAR HGB CONC 34.7 g/dl (33.0-37.0); MEAN PLATELET VOLUME 11.4 fl (9.6-12.3); MONO # 0.5 10*3/uL (0.1-1.0); MONO % 5.2 % (3.0-9.0); NEUT # 3.1 10*3/uL (2.3-7.9); NEUT % 35.7 % (47.0-73.0); PLATELET COUNT AUTOMATED 317 10*3/uL (130-400); RED BLOOD COUNT 4.34 10*6/uL (4.10-5.10); RED CELL DISTRI WIDTH 14.2 % (0-14.5); WHITE BLOOD COUNT 8.7 10*3/uL (4.8-10.8)
[2017-01-04 18:36] LABS: BILIRUBIN NEGATIVE (NEGATIVE); BLOOD NEGATIVE (NEGATIVE); CLARITY CLEAR (CLEAR); COLOR YELLOW (YELLOW); GLUCOSE 1+ (NEGATIVE); KETONE NEGATIVE (NEGATIVE); LEUKO ESTERASE NEGATIVE (NEGATIVE); NITRITE NEGATIVE (NEGATIVE); SPECIFIC GRAVITY 1.015 (1.005-1.030); UROBILINOGEN 0.2 E.U./dl (0.2-1.0)
[2017-01-04 18:43] LABS: CALCIUM OXALATE CRYSTALS 1+; EPITHELIAL CELLS 0-2; WBC 0-2 wbc/hpf (0-5)
[2017-01-04 18:49] LABS: ALBUMIN 4.1 gm/dl (3.1-4.5); ALKALINE PHOSPHATASE 95 U/L (45-117); BUN 11 mg/dl (7-24); CHLORIDE 104 mmol/L (98-107); CREATININE 0.84 mg/dL (0.55-1.02); POTASSIUM 3.3 mmol/L (3.5-5.1); SGOT/AST 16 IU/L (3-35); SGPT/ALT 36 U/L (12-78); SODIUM 137 mmol/L (136-145); TOTAL PROTEIN 7.5 gm/dL (6.4-8.2)
== END 2017-01-04 19:50 | disposition home or self-care (01) ==
LOC: ED 16:38
PROVIDERS: Nurse Practitioner
DX: R25.3 Fasciculation (principal); Z88.8 Allergy status to other drugs, medicaments and biological substances; Z79.899 Other long term (current) drug therapy; Z90.49 Acquired absence of other specified parts of digestive tract

== ENCOUNTER 2017-02-19 12:31 | Emergency (ER) | payer OTHER ==
[~2017-02-19] VITALS: Ht 157.4 cm; Wt 65.8 kg
[2017-02-19 12:39] VITALS: BP 138/77
[2017-02-19 13:23] LABS: BILIRUBIN NEGATIVE (NEGATIVE); BLOOD 2+ (NEGATIVE); CLARITY CLOUDY (CLEAR); COLOR YELLOW (YELLOW); GLUCOSE 3+ (NEGATIVE); KETONE NEGATIVE (NEGATIVE); NITRITE NEGATIVE (NEGATIVE); PH 5.5 (5.0-9.0); UROBILINOGEN 0.2 E.U./dl (0.2-1.0)
[2017-02-19 13:42] LABS: BACTERIA 2+; LEUKO ESTERASE 2+ (NEGATIVE); RBC 41-50 rbc/hpf (0-2); WBC 41-50 wbc/hpf (0-5)
[2017-02-19] MEDS ORDERED: MACROBID100 M1 PO (14:01)
[2017-02-19] MEDS ORDERED: PYRIDIUM200 M1 PO (14:01)
== END 2017-02-19 14:13 | disposition home or self-care (01) ==
LOC: ED 12:31
PROVIDERS: Nurse Practitioner Family
DX: N39.0 Urinary tract infection, site not specified (principal); Z90.49 Acquired absence of other specified parts of digestive tract; Z98.890 Other specified postprocedural states; Z79.899 Other long term (current) drug therapy; Z88.8 Allergy status to other drugs, medicaments and biological substances; Z88.1 Allergy status to other antibiotic agents

== ENCOUNTER 2017-04-20 16:49 | Emergency (ER) | payer OTHER ==
[~2017-04-20] VITALS: Wt 65.8 kg
[~2017-04-20 16:49] MED LIST changes: +PYRIDIUM200 M1 PO
[2017-04-20 17:04] LABS: HEMOGLOBIN 14.7 g/dl (12.0-16.0); MEAN CELL VOLUME 85.5 fl (81.0-99.0); MEAN CORPUSCULAR HGB 29.2 pg (27.0-31.0); MEAN CORPUSCULAR HGB CONC 34.2 g/dl (33.0-37.0); MEAN PLATELET VOLUME 11.5 fl (9.6-12.3); PLATELET COUNT AUTOMATED 299 10*3/uL (130-400); RED BLOOD COUNT 5.03 10*6/uL (4.10-5.10); RED CELL DISTRI WIDTH 13.1 % (0-14.5); WHITE BLOOD COUNT 11.7 10*3/uL (4.8-10.8)
[2017-04-20 17:14] LABS: ACT PARTIAL THROMBO TIME 21.5 SECONDS (20.8-31.5)
[2017-04-20 17:22] LABS: ALBUMIN 4.4 gm/dl (3.1-4.5); ALKALINE PHOSPHATASE 107 U/L (45-117); BUN 11 mg/dl (7-24); CHLORIDE 106 mmol/L (98-107); CREATININE 1.06 mg/dL (0.55-1.02); POTASSIUM 3.1 mmol/L (3.5-5.1); SGOT/AST 19 IU/L (3-35); SGPT/ALT 48 U/L (12-78); SODIUM 139 mmol/L (136-145); TOTAL PROTEIN 8.2 gm/dL (6.4-8.2)
[2017-04-20 17:23] LABS: TROPONIN I < 0.015 ng/ml (<0.045)
[2017-04-20 17:39] LABS: TOTAL CELLS COUNTED 100 #CELLS
[2017-04-20 17:40] LABS: PLATELET SUFFICIENCY NORMAL (NORMAL); POLYCHROMASIA SLIGHT
[2017-04-20 18:55] VITALS: BP 117/60
[2017-04-20] MEDS ORDERED: Fioricet 325 MG1 TAB PO (19:00)
== END 2017-04-20 19:05 | disposition home or self-care (01) ==
LOC: ED 16:49
PROVIDERS: Emergency Medicine
DX: R09.1 Pleurisy (principal); E78.5 Hyperlipidemia, unspecified; E11.9 Type 2 diabetes mellitus without complications; F17.200 Nicotine dependence, unspecified, uncomplicated; I10 Essential (primary) hypertension; G43.909 Migraine, unspecified, not intractable, without status migrainosus; Z90.49 Acquired absence of other specified parts of digestive tract; Z98.890 Other specified postprocedural states; Z79.899 Other long term (current) drug therapy; Z88.8 Allergy status to other drugs, medicaments and biological substances; Z88.6 Allergy status to analgesic agent

== ENCOUNTER 2017-05-01 17:24 | Emergency (ER) | payer OTHER ==
[~2017-05-01] VITALS: Ht 157.4 cm; Wt 65.8 kg
[~2017-05-01 17:24] MED LIST changes: +Fioricet 325 MG1 TAB PO
[2017-05-01 17:38] VITALS: BP 145/90
[2017-05-01] MEDS ORDERED: CYCLOBENZAPRINE10 MG PO (17:47)
[2017-05-01] MEDS ORDERED: NAPROSYN500 MG PO (17:47)
[2017-05-01] MEDS ORDERED: ZANAFLEX2 M1 PO (18:03)
== END 2017-05-01 17:50 | disposition home or self-care (01) ==
LOC: ED 17:24
DX: M54.40 Lumbago with sciatica, unspecified side (principal); Z88.1 Allergy status to other antibiotic agents; Z88.6 Allergy status to analgesic agent; Z88.8 Allergy status to other drugs, medicaments and biological substances; Z79.899 Other long term (current) drug therapy

== ENCOUNTER 2017-05-06 18:52 | Emergency (ER) | payer OTHER ==
[~2017-05-06] VITALS: Ht 157.4 cm; Wt 65.8 kg
[~2017-05-06 18:52] MED LIST changes: +ZANAFLEX2 M1 PO
[2017-05-06] MEDS ORDERED: LIPITOR10 MG PO (19:05)
[2017-05-06] MEDS ORDERED: VICTOZA 3-PAK6 MG/ML SC (19:06)
[2017-05-06] MEDS ORDERED: DIABETA,MICRO1.25 MG PO (19:06)
[2017-05-06] MEDS ORDERED: OMEPRAZOLE MAGN20 MG PO (19:07)
[2017-05-06] MEDS ORDERED: TRINTELLIX20 MG PO (19:07)
[2017-05-06 19:43] LABS: HEMATOCRIT 44.6 % (37.0-47.0); HEMOGLOBIN 15.2 g/dl (12.0-16.0); MEAN CORPUSCULAR HGB CONC 34.1 g/dl (33.0-37.0); MEAN PLATELET VOLUME 11.6 fl (9.6-12.3); PLATELET COUNT AUTOMATED 283 10*3/uL (130-400); RED BLOOD COUNT 5.07 10*6/uL (4.10-5.10); RED CELL DISTRI WIDTH 13.5 % (0-14.5); WHITE BLOOD COUNT 13.1 10*3/uL (4.8-10.8)
[2017-05-06 19:58] LABS: ALBUMIN 4.6 gm/dl (3.1-4.5); ALKALINE PHOSPHATASE 107 U/L (45-117); BUN 16 mg/dl (7-24); CHLORIDE 103 mmol/L (98-107); CREATININE 0.78 mg/dL (0.55-1.02); LIPASE 212 U/L (73-393); POTASSIUM 3.6 mmol/L (3.5-5.1); SGOT/AST 24 IU/L (3-35); SGPT/ALT 58 U/L (12-78); SODIUM 136 mmol/L (136-145); TOTAL PROTEIN 7.9 gm/dL (6.4-8.2)
[2017-05-06 20:00] LABS: BILIRUBIN NEGATIVE (NEGATIVE); BLOOD TRACE-INTACT (NEGATIVE); CLARITY SL CLOUDY (CLEAR); COLOR YELLOW (YELLOW); GLUCOSE 3+ (NEGATIVE); KETONE NEGATIVE (NEGATIVE); LEUKO ESTERASE 1+ (NEGATIVE); NITRITE NEGATIVE (NEGATIVE); SPECIFIC GRAVITY <= 1.005 (1.005-1.030); UROBILINOGEN 0.2 E.U./dl (0.2-1.0)
[2017-05-06 20:09] LABS: ATYPICAL LYMPHS 2 % (0-0); TOTAL CELLS COUNTED 100 #CELLS
[2017-05-06 20:10] LABS: PLATELET SUFFICIENCY NORMAL (NORMAL)
[2017-05-06 20:16] LABS: EPITHELIAL CELLS 15-20
[2017-05-06 20:38] VITALS: BP 120/69
[2017-05-06] MEDS ORDERED: MIRALAX POWDER17 G1 PO (21:34)
== END 2017-05-06 21:38 | disposition home or self-care (01) ==
LOC: ED 18:52
PROVIDERS: Physician Assistant
DX: K59.00 Constipation, unspecified (principal); G89.29 Other chronic pain; M54.31 Sciatica, right side; Z88.6 Allergy status to analgesic agent; Z88.8 Allergy status to other drugs, medicaments and biological substances; Z79.899 Other long term (current) drug therapy

== ENCOUNTER 2017-05-20 12:54 | Emergency (ER) | payer OTHER ==
[~2017-05-20] VITALS: Ht 157.4 cm; Wt 65.8 kg
[~2017-05-20 12:54] MED LIST changes: +DIABETA,MICRO1.25 MG PO; +LIPITOR10 MG PO; +MIRALAX POWDER17 G1 PO; +OMEPRAZOLE MAGN20 MG PO; +TRINTELLIX20 MG PO; +VICTOZA 3-PAK6 MG/ML SC
[2017-05-20 15:06] VITALS: BP 130/71
== END 2017-05-20 15:06 | disposition home or self-care (01) ==
LOC: ED 12:54
DX: M25.552 Pain in left hip (principal); M79.652 Pain in left thigh; H92.02 Otalgia, left ear; E11.9 Type 2 diabetes mellitus without complications; I10 Essential (primary) hypertension; J45.909 Unspecified asthma, uncomplicated; Z88.8 Allergy status to other drugs, medicaments and biological substances; Z88.6 Allergy status to analgesic agent; Z79.899 Other long term (current) drug therapy

== ENCOUNTER 2017-06-20 21:15 | Inpatient (IN) | payer OTHER ==
[~2017-06-20] VITALS: Ht 157.4 cm; Wt 63.7 kg
--- NOTE | ~2017-06-20 | ST ---
[place], [place] EXERCISE STRESS TEST REPORT NAME: JOAN SALAZAR [facility] #: [id number] UNIT #: [id number] ROOM: 516 DOCTOR: IBIS GALAVIZ MD BIRTHDATE: [birth year] DOS: 06/21/2017 REFERRING PHYSICIAN: Dr. Love. INDICATION: Precordial chest pain. The patient underwent standard protocol Lexiscan stress EKG. The baseline EKG showed normal sinus rhythm with nonspecific ST-T wave changes. The patient's baseline heart rate was 99 with blood pressure 110/78. The patient's peak heart was 126 with blood pressure 112/70. The patient had no chest pain, no ischemic changes and no arrhythmias. SUMMARY OF FINDINGS: Unremarkable Lexiscan stress EKG. Please see separate report for perfusion scan imaging results. IBIS GALAVIZ MD CM:STRESS:EXERCISE STRESS TEST REPORT [id number] IBIS GALAVIZ MD
[2017-06-20 21:24] VITALS: BP 136/94
[2017-06-20 21:34] LABS: HEMATOCRIT 45.6 % (37.0-47.0); HEMOGLOBIN 15.7 g/dl (12.0-16.0); MEAN CELL VOLUME 85.1 fl (81.0-99.0); MEAN CORPUSCULAR HGB 29.3 pg (27.0-31.0); MEAN CORPUSCULAR HGB CONC 34.4 g/dl (33.0-37.0); MEAN PLATELET VOLUME 10.7 fl (9.6-12.3); PLATELET COUNT AUTOMATED 306 10*3/uL (130-400); RED BLOOD COUNT 5.36 10*6/uL (4.10-5.10); RED CELL DISTRI WIDTH 14.4 % (0-14.5); WHITE BLOOD COUNT 16.1 10*3/uL (4.8-10.8)
[2017-06-20 21:44] LABS: ACT PARTIAL THROMBO TIME 21.4 SECONDS (20.8-31.5)
[2017-06-20 21:51] LABS: ALBUMIN 4.5 gm/dl (3.1-4.5); ALKALINE PHOSPHATASE 99 U/L (45-117); BUN 15 mg/dl (7-24); CHLORIDE 103 mmol/L (98-107); CREATININE 0.76 mg/dL (0.55-1.02); POTASSIUM 2.9 mmol/L (3.5-5.1); SGOT/AST 21 IU/L (3-35); SGPT/ALT 47 U/L (12-78); SODIUM 137 mmol/L (136-145); TOTAL PROTEIN 7.9 gm/dL (6.4-8.2)
[2017-06-20 21:52] LABS: TROPONIN I < 0.015 ng/ml (<0.045)
[2017-06-20 21:56] LABS: BASOPHILS 1 % (0-1); TOTAL CELLS COUNTED 100 #CELLS
[2017-06-20 22:00] LABS: PLATELET SUFFICIENCY NORMAL (NORMAL)
[2017-06-20 22:11] VITALS: BP 141/83
[2017-06-20 22:45] VITALS: BP 160/88
[2017-06-21] VITALS: BP 160/88
[2017-06-21 03:28] LABS: HEMATOCRIT 44.4 % (37.0-47.0); HEMOGLOBIN 15.4 g/dl (12.0-16.0); MEAN CELL VOLUME 85.4 fl (81.0-99.0); MEAN CORPUSCULAR HGB 29.6 pg (27.0-31.0); MEAN CORPUSCULAR HGB CONC 34.7 g/dl (33.0-37.0); MEAN PLATELET VOLUME 10.6 fl (9.6-12.3); PLATELET COUNT AUTOMATED 295 10*3/uL (130-400); RED CELL DISTRI WIDTH 14.3 % (0-14.5); WHITE BLOOD COUNT 12.5 10*3/uL (4.8-10.8)
[2017-06-21 03:44] LABS: ALBUMIN 4.2 gm/dl (3.1-4.5); ALKALINE PHOSPHATASE 96 U/L (45-117); BUN 16 mg/dl (7-24); CHLORIDE 104 mmol/L (98-107); CHOLESTEROL 140 mg/dL (<200); CREATININE 0.77 mg/dL (0.55-1.02); HDL CHOLESTEROL 42 mg/dl (40-60); LDL CHOLESTEROL 47 mg/dL (9-159); PHOSPHOROUS 3.5 mg/dL (2.5-4.9); POTASSIUM 3.5 mmol/L (3.5-5.1); SGOT/AST 23 IU/L (3-35); SGPT/ALT 48 U/L (12-78); SODIUM 138 mmol/L (136-145); TOTAL PROTEIN 7.7 gm/dL (6.4-8.2); TRIGLYCERIDES 254 mg/dl (<150); VLDL CHOLESTEROL 51 mg/dL (6-40)
[2017-06-21 03:46] LABS: FREE T4 1.14 ng/dl (0.76-1.46)
[2017-06-21 03:55] LABS: PLATELET SUFFICIENCY NORMAL (NORMAL); TOTAL CELLS COUNTED 100 #CELLS
[2017-06-21 07:49] LABS: BILIRUBIN NEGATIVE (NEGATIVE); BLOOD TRACE-INTACT (NEGATIVE); CLARITY SL CLOUDY (CLEAR); COLOR YELLOW (YELLOW); GLUCOSE 3+ (NEGATIVE); KETONE TRACE (NEGATIVE); LEUKO ESTERASE NEGATIVE (NEGATIVE); NITRITE NEGATIVE (NEGATIVE); PH 5.5 (5.0-9.0); SPECIFIC GRAVITY >= 1.030 (1.005-1.030); UROBILINOGEN 0.2 E.U./dl (0.2-1.0)
[2017-06-21 08:00] VITALS: BP 131/64
[2017-06-21 08:07] LABS: VITAMIN D, 25-HYDROXY 22.5 ng/mL (30-100)
[2017-06-21 10:30] LABS: BACTERIA 2+; MUCOUS 1+; YEAST 1+
[2017-06-21 10:31] LABS: CALCIUM OXALATE CRYSTALS TRACE
[2017-06-21 12:00] VITALS: BP 124/78
[2017-06-21] MEDS ORDERED: ONDANSETRON4 MG SL (15:00)
[2017-06-21] MEDS ORDERED: ZANAFLEX CAPSULE4 MG PO (15:00)
[2017-06-21] MEDS ORDERED: OMEPRAZOLE40 MG PO (15:12)
[2017-06-21] MEDS ORDERED: INVOKANA100 M1 PO (15:14)
[2017-06-21] MEDS ORDERED: HYDROXYZINE PAM25 M1 PO (15:16)
[2017-06-21] MEDS ORDERED: NATURE'S BLEND F1 MG PO (15:18)
[2017-06-21] MEDS ORDERED: REXULTI1 MG PO (15:19)
[2017-06-21] MEDS ORDERED: DIFLUCAN150 MG PO (15:20)
[2017-06-21] MEDS ORDERED: BENZONATATE200 MG PO (15:23)
[2017-06-21] MEDS ORDERED: CYCLOBENZAPRINE10 MG PO (15:25)
[2017-06-21] MEDS ORDERED: LOPERAMIDE HCL2 MG PO (15:27)
[2017-06-21 16:00] VITALS: BP 140/84
== END 2017-06-21 17:24 | disposition home or self-care (01) | DRG 563 ==
LOC: ED 21:15 → EDHOLD 22:16 → 5E 22:16
PROVIDERS: Internal Medicine Hospice and Palliative Medicine; Student in an Organized Health Care Education/Training Program
PROC: 4A02XM4 Measurement of Cardiac Total Activity, External Approach (ICD-10-PCS; principal; 2017-06-21)
PROC: 3E073KZ Introduction of Other Diagnostic Substance into Coronary Artery, Percutaneous Approach (ICD-10-PCS; 2017-06-21)
DX: S29.011A Strain of muscle and tendon of front wall of thorax, initial encounter (principal); E11.40 Type 2 diabetes mellitus with diabetic neuropathy, unspecified; R65.10 Systemic inflammatory response syndrome (SIRS) of non-infectious origin without acute organ dysfunction; E11.65 Type 2 diabetes mellitus with hyperglycemia; E83.41 Hypermagnesemia; K21.9 Gastro-esophageal reflux disease without esophagitis; E78.2 Mixed hyperlipidemia; G43.909 Migraine, unspecified, not intractable, without status migrainosus; I10 Essential (primary) hypertension; M54.41 Lumbago with sciatica, right side; M54.42 Lumbago with sciatica, left side; F41.9 Anxiety disorder, unspecified; M54.16 Radiculopathy, lumbar region; F32.9 Major depressive disorder, single episode, unspecified; J44.9 Chronic obstructive pulmonary disease, unspecified; E55.9 Vitamin D deficiency, unspecified; E87.6 Hypokalemia; E80.6 Other disorders of bilirubin metabolism; K58.2 Mixed irritable bowel syndrome; R07.89 Other chest pain; X58.XXXA Exposure to other specified factors, initial encounter; Z79.899 Other long term (current) drug therapy; Z88.6 Allergy status to analgesic agent; Z88.8 Allergy status to other drugs, medicaments and biological substances; Z91.81 History of falling; Z87.440 Personal history of urinary (tract) infections; Z90.49 Acquired absence of other specified parts of digestive tract; Z82.49 Family history of ischemic heart disease and other diseases of the circulatory system; Y93.89 Activity, other specified; Y92.89 Other specified places as the place of occurrence of the external cause; Y99.8 Other external cause status

== ENCOUNTER 2017-08-13 23:29 | Inpatient (IN) | payer OTHER ==
[~2017-08-13] VITALS: Ht 157.4 cm; Wt 68.2 kg
[~2017-08-13 23:29] MED LIST changes: +BENZONATATE200 MG PO; +CLARITIN10 MG PO; +DIFLUCAN150 MG PO; +Diabeta,Micron2.5 MG PO; +HYDROXYZINE PAM25 M1 PO; +IMODIUM A-D2 M2 PO; +INVOKANA100 M1 PO; +LOPERAMIDE HCL2 MG PO; +OMEPRAZOLE40 MG PO; +ONDANSETRON4 MG SL; +PROAIR HFA8.5 GM INH; +REXULTI1 MG PO; +TESSALON PERLE100 MG PO; +VICTOZA 2-0.6 MG/0.1 SQ; +ZANAFLEX CAPSULE4 MG PO
[2017-08-13 23:35] VITALS: BP 82/46
[2017-08-13 23:39] VITALS: BP 84/39
[2017-08-13] MEDS ORDERED: SEPTDS PO (23:44)
[2017-08-13] MEDS ORDERED: CIPRO250 MG PO (23:44)
[2017-08-14 00:04] VITALS: BP 80/43
[2017-08-14 00:08] LABS: HEMATOCRIT 35.3 % (37.0-47.0); HEMOGLOBIN 11.6 g/dl (12.0-16.0); MEAN CELL VOLUME 92.7 fl (81.0-99.0); MEAN CORPUSCULAR HGB 30.4 pg (27.0-31.0); MEAN CORPUSCULAR HGB CONC 32.9 g/dl (33.0-37.0); MEAN PLATELET VOLUME 11.4 fl (9.6-12.3); PLATELET COUNT AUTOMATED 277 10*3/uL (130-400); RED BLOOD COUNT 3.81 10*6/uL (4.10-5.10); RED CELL DISTRI WIDTH 13.8 % (0-14.5); WHITE BLOOD COUNT 10.4 10*3/uL (4.8-10.8)
[2017-08-14 00:21] VITALS: BP 88/40
[2017-08-14 00:28] LABS: TOTAL CELLS COUNTED 100 #CELLS
[2017-08-14 00:29] LABS: POLYCHROMASIA SLIGHT
[2017-08-14 00:30] LABS: PLATELET SUFFICIENCY NORMAL (NORMAL)
[2017-08-14 00:31] LABS: ALBUMIN 3.2 gm/dl (3.1-4.5); ALKALINE PHOSPHATASE 91 U/L (45-117); BUN 10 mg/dl (7-24); CHLORIDE 110 mmol/L (98-107); CREATININE 0.78 mg/dL (0.55-1.02); POTASSIUM 3.5 mmol/L (3.5-5.1); SGOT/AST 15 IU/L (3-35); SGPT/ALT 36 U/L (12-78); SODIUM 141 mmol/L (136-145); TOTAL PROTEIN 6.1 gm/dL (6.4-8.2)
[2017-08-14 00:32] LABS: TROPONIN I < 0.015 ng/ml (<0.045)
[2017-08-14 01:03] LABS: BILIRUBIN NEGATIVE (NEGATIVE); BLOOD NEGATIVE (NEGATIVE); CLARITY CLEAR (CLEAR); COLOR YELLOW (YELLOW); GLUCOSE 3+ (NEGATIVE); KETONE NEGATIVE (NEGATIVE); LEUKO ESTERASE NEGATIVE (NEGATIVE); NITRITE NEGATIVE (NEGATIVE); UROBILINOGEN 0.2 E.U./dl (0.2-1.0)
[2017-08-14 01:13] VITALS: BP 91/58
[2017-08-14 01:15] LABS: WBC 0-2 wbc/hpf (0-5)
[2017-08-14 01:55] VITALS: BP 110/70
[2017-08-14 04:00] VITALS: BP 107/72
[2017-08-14 04:41] LABS: BASO # 0.1 10*3/uL (0.0-0.1); BASO % 0.7 % (0.0-1.0); EOS # 0.1 10*3/uL (0.0-0.4); EOS % 0.7 % (1.0-4.0); HEMOGLOBIN 12.1 g/dl (12.0-16.0); LYMPH # 4.3 10*3/uL (1.3-4.4); LYMPH % 40.6 % (27.0-41.0); MEAN CELL VOLUME 92.3 fl (81.0-99.0); MEAN CORPUSCULAR HGB 30.2 pg (27.0-31.0); MEAN CORPUSCULAR HGB CONC 32.7 g/dl (33.0-37.0); MEAN PLATELET VOLUME 11.1 fl (9.6-12.3); MONO # 0.6 10*3/uL (0.1-1.0); MONO % 5.3 % (3.0-9.0); NEUT # 5.6 10*3/uL (2.3-7.9); NEUT % 52.3 % (47.0-73.0); PLATELET COUNT AUTOMATED 287 10*3/uL (130-400); RED BLOOD COUNT 4.01 10*6/uL (4.10-5.10); RED CELL DISTRI WIDTH 13.9 % (0-14.5); WHITE BLOOD COUNT 10.7 10*3/uL (4.8-10.8)
[2017-08-14 04:59] LABS: ALBUMIN 3.5 gm/dl (3.1-4.5); BUN 6 mg/dl (7-24); CHLORIDE 112 mmol/L (98-107); CREATININE 0.72 mg/dL (0.55-1.02); PHOSPHOROUS 2.6 mg/dL (2.5-4.9); POTASSIUM 3.8 mmol/L (3.5-5.1); SGOT/AST 23 IU/L (3-35); SGPT/ALT 38 U/L (12-78); SODIUM 142 mmol/L (136-145); TOTAL PROTEIN 6.3 gm/dL (6.4-8.2)
[2017-08-14 05:06] LABS: ALKALINE PHOSPHATASE 94 U/L (45-117)
[2017-08-14 08:00] VITALS: BP 126/74
[2017-08-14 11:15] LABS: URINE AMPHETAMINES < 1000 (1000ng/ml); URINE BARBITURATES < 200 (200ng/ml); URINE BENZODIAZEPINES < 200 (200ng/ml); URINE CANNABINOIDS (THC) < 50 (50ng/ml); URINE COCAINE < 300 (300ng/ml); URINE METHADONE < 300 (300ng/ml); URINE OPIATES < 300 (300ng/ml)
[2017-08-14 11:27] LABS: URINE PHENCYCLIDINE < 25 (25ng/ml)
[2017-10-07] MEDS ORDERED: REXULTI2 MG PO (11:39)
[2017-10-07] MEDS ORDERED: Elocon 0.1% Cre15 GM T (11:40)
[2017-10-07] MEDS ORDERED: CLARITHROMYCIN500 MG PO (11:40)
[2017-10-07] MEDS ORDERED: MONTELUKAST SOD10 MG PO (11:40)
[2017-10-07] MEDS ORDERED: STEGLATRO5 MG PO (11:42)
[2017-10-07] MEDS ORDERED: FENOFIBRATE MI134 MG PO (11:42)
[2017-10-07] MEDS ORDERED: IPRATROPIUM BRO15 ML NEB (11:42)
[2017-10-07] MEDS ORDERED: TIZANIDINE HCL4 MG PO (11:43)
[2017-10-07] MEDS ORDERED: CETIRIZINE10 MG PO (11:43)
[2017-10-07] MEDS ORDERED: SEPTDS PO (13:28)
[2017-10-07] MEDS ORDERED: PHENERGAN25 M3 PO (13:28)
== END 2017-08-14 11:50 | disposition home or self-care (01) | DRG 315 ==
LOC: ED 23:29 → EDHOLD 08-14 01:03 → ICCU 08-14 01:03
PROVIDERS: Internal Medicine; Internal Medicine Hospice and Palliative Medicine; Nurse Practitioner Family
DX: I95.9 Hypotension, unspecified (principal); E87.2 Acidosis; E11.42 Type 2 diabetes mellitus with diabetic polyneuropathy; E11.65 Type 2 diabetes mellitus with hyperglycemia; E83.51 Hypocalcemia; M41.9 Scoliosis, unspecified; E87.8 Other disorders of electrolyte and fluid balance, not elsewhere classified; G62.9 Polyneuropathy, unspecified; D64.9 Anemia, unspecified; R81 Glycosuria; I10 Essential (primary) hypertension; E78.2 Mixed hyperlipidemia; J44.9 Chronic obstructive pulmonary disease, unspecified; G47.33 Obstructive sleep apnea (adult) (pediatric); K58.0 Irritable bowel syndrome with diarrhea; K44.9 Diaphragmatic hernia without obstruction or gangrene; M54.32 Sciatica, left side; F41.9 Anxiety disorder, unspecified; F32.9 Major depressive disorder, single episode, unspecified; K21.9 Gastro-esophageal reflux disease without esophagitis; Z88.6 Allergy status to analgesic agent; Z88.8 Allergy status to other drugs, medicaments and biological substances; Z79.899 Other long term (current) drug therapy; Z90.49 Acquired absence of other specified parts of digestive tract; Z82.49 Family history of ischemic heart disease and other diseases of the circulatory system; Z79.84 Long term (current) use of oral hypoglycemic drugs; Z87.440 Personal history of urinary (tract) infections

== ENCOUNTER 2017-08-17 20:31 | Emergency (ER) | payer OTHER ==
[~2017-08-17] VITALS: Ht 157.4 cm; Wt 64.9 kg
[~2017-08-17 20:31] MED LIST changes: +CIPRO250 MG PO; +SEPTDS PO
[2017-08-17 20:34] VITALS: BP 150/81
[2017-10-07] MEDS ORDERED: REXULTI2 MG PO (11:39)
[2017-10-07] MEDS ORDERED: MONTELUKAST SOD10 MG PO (11:40)
[2017-10-07] MEDS ORDERED: Elocon 0.1% Cre15 GM T (11:40)
[2017-10-07] MEDS ORDERED: CLARITHROMYCIN500 MG PO (11:40)
[2017-10-07] MEDS ORDERED: FENOFIBRATE MI134 MG PO (11:42)
[2017-10-07] MEDS ORDERED: STEGLATRO5 MG PO (11:42)
[2017-10-07] MEDS ORDERED: IPRATROPIUM BRO15 ML NEB (11:42)
[2017-10-07] MEDS ORDERED: TIZANIDINE HCL4 MG PO (11:43)
[2017-10-07] MEDS ORDERED: CETIRIZINE10 MG PO (11:43)
[2017-10-07] MEDS ORDERED: PHENERGAN25 M3 PO (13:28)
[2017-10-07] MEDS ORDERED: SEPTDS PO (13:28)
== END 2017-08-17 22:03 | disposition home or self-care (01) ==
LOC: ED 20:31
DX: M79.672 Pain in left foot (principal); J44.9 Chronic obstructive pulmonary disease, unspecified; K21.9 Gastro-esophageal reflux disease without esophagitis; E78.2 Mixed hyperlipidemia; E11.40 Type 2 diabetes mellitus with diabetic neuropathy, unspecified; I11.0 Hypertensive heart disease with heart failure; I50.30 Unspecified diastolic (congestive) heart failure; Z88.6 Allergy status to analgesic agent; Z88.8 Allergy status to other drugs, medicaments and biological substances; Z79.899 Other long term (current) drug therapy

== ENCOUNTER 2017-09-02 10:34 | Emergency (ER) | payer OTHER ==
[~2017-09-02] VITALS: Wt 63.5 kg
[2017-09-02 10:35] VITALS: BP 146/84
[2017-09-02 11:37] LABS: BASO # 0.1 10*3/uL (0.0-0.1); BASO % 0.9 % (0.0-1.0); EOS # 0.1 10*3/uL (0.0-0.4); EOS % 0.7 % (1.0-4.0); HEMATOCRIT 41.2 % (37.0-47.0); HEMOGLOBIN 13.6 g/dl (12.0-16.0); LYMPH # 3.6 10*3/uL (1.3-4.4); LYMPH % 39.4 % (27.0-41.0); MEAN CELL VOLUME 88.6 fl (81.0-99.0); MEAN CORPUSCULAR HGB 29.2 pg (27.0-31.0); MEAN PLATELET VOLUME 10.8 fl (9.6-12.3); MONO # 0.5 10*3/uL (0.1-1.0); MONO % 5.6 % (3.0-9.0); NEUT # 4.8 10*3/uL (2.3-7.9); NEUT % 53.2 % (47.0-73.0); PLATELET COUNT AUTOMATED 281 10*3/uL (130-400); RED BLOOD COUNT 4.65 10*6/uL (4.10-5.10); RED CELL DISTRI WIDTH 13.6 % (0-14.5); WHITE BLOOD COUNT 9.1 10*3/uL (4.8-10.8)
[2017-09-02 11:53] LABS: ALKALINE PHOSPHATASE 104 U/L (45-117); BUN 8 mg/dl (7-24); CHLORIDE 104 mmol/L (98-107); POTASSIUM 3.2 mmol/L (3.5-5.1); SGOT/AST 17 IU/L (3-35); SGPT/ALT 39 U/L (12-78); SODIUM 139 mmol/L (136-145); TOTAL PROTEIN 7.5 gm/dL (6.4-8.2)
[2017-09-02] MEDS ORDERED: ZITHROMAX250 MG PO (12:38)
[2017-09-02] MEDS ORDERED: PREDNISONE20 M1 PO (12:40)
[2017-10-07] MEDS ORDERED: REXULTI2 MG PO (11:39)
[2017-10-07] MEDS ORDERED: MONTELUKAST SOD10 MG PO (11:40)
[2017-10-07] MEDS ORDERED: Elocon 0.1% Cre15 GM T (11:40)
[2017-10-07] MEDS ORDERED: CLARITHROMYCIN500 MG PO (11:40)
[2017-10-07] MEDS ORDERED: IPRATROPIUM BRO15 ML NEB (11:42)
[2017-10-07] MEDS ORDERED: FENOFIBRATE MI134 MG PO (11:42)
[2017-10-07] MEDS ORDERED: STEGLATRO5 MG PO (11:42)
[2017-10-07] MEDS ORDERED: CETIRIZINE10 MG PO (11:43)
[2017-10-07] MEDS ORDERED: TIZANIDINE HCL4 MG PO (11:43)
[2017-10-07] MEDS ORDERED: SEPTDS PO (13:28)
[2017-10-07] MEDS ORDERED: PHENERGAN25 M3 PO (13:28)
== END 2017-09-02 12:45 | disposition home or self-care (01) ==
LOC: ED 10:34
PROVIDERS: Nurse Practitioner
DX: H66.92 Otitis media, unspecified, left ear (principal); R05 Cough; R09.81 Nasal congestion; R51 Headache; J45.909 Unspecified asthma, uncomplicated; E11.9 Type 2 diabetes mellitus without complications; Z88.1 Allergy status to other antibiotic agents; Z88.6 Allergy status to analgesic agent; Z88.8 Allergy status to other drugs, medicaments and biological substances; Z79.899 Other long term (current) drug therapy

== ENCOUNTER 2017-11-02 10:03 | Emergency (ER) | payer OTHER ==
[~2017-11-02] VITALS: Ht 157.4 cm; Wt 62.1 kg
[~2017-11-02 10:03] MED LIST changes: +CETIRIZINE10 MG PO; +CLARITHROMYCIN500 MG PO; +Elocon 0.1% Cre15 GM T; +FENOFIBRATE MI134 MG PO; +IPRATROPIUM BRO15 ML NEB; +MONTELUKAST SOD10 MG PO; +PHENERGAN25 M3 PO; +PREDNISONE20 M1 PO; +REXULTI2 MG PO; +STEGLATRO5 MG PO; +TIZANIDINE HCL4 MG PO; +ZITHROMAX250 MG PO
[2017-11-02 10:06] VITALS: BP 123/81
[2017-11-02] MEDS ORDERED: CHLORZOXAZONE500 M2 PO (10:37)
[2017-11-02 10:47] LABS: BASO # 0.1 10*3/uL (0.0-0.1); BASO % 0.7 % (0.0-1.0); EOS # 0.1 10*3/uL (0.0-0.4); EOS % 1.3 % (1.0-4.0); HEMATOCRIT 45.3 % (37.0-47.0); HEMOGLOBIN 15.6 g/dl (12.0-16.0); LYMPH # 4.6 10*3/uL (1.3-4.4); MEAN CELL VOLUME 85.3 fl (81.0-99.0); MEAN CORPUSCULAR HGB 29.4 pg (27.0-31.0); MEAN CORPUSCULAR HGB CONC 34.4 g/dl (33.0-37.0); MEAN PLATELET VOLUME 11.1 fl (9.6-12.3); MONO # 0.4 10*3/uL (0.1-1.0); MONO % 3.7 % (3.0-9.0); NEUT # 5.2 10*3/uL (2.3-7.9); NEUT % 50.1 % (47.0-73.0); PLATELET COUNT AUTOMATED 311 10*3/uL (130-400); RED BLOOD COUNT 5.31 10*6/uL (4.10-5.10); WHITE BLOOD COUNT 10.4 10*3/uL (4.8-10.8)
[2017-11-02 10:50] LABS: BILIRUBIN NEGATIVE (NEGATIVE); BLOOD TRACE-INTACT (NEGATIVE); CLARITY CLOUDY (CLEAR); COLOR YELLOW (YELLOW); GLUCOSE 3+ (NEGATIVE); KETONE NEGATIVE (NEGATIVE); LEUKO ESTERASE TRACE (NEGATIVE); NITRITE POSITIVE (NEGATIVE); SPECIFIC GRAVITY 1.025 (1.005-1.030)
[2017-11-02 10:56] LABS: BACTERIA 4+; EPITHELIAL CELLS 21-30; WBC TNTC wbc/hpf (0-5)
[2017-11-02 11:02] LABS: ALBUMIN 4.2 gm/dl (3.1-4.5); ALKALINE PHOSPHATASE 123 U/L (45-117); BUN 11 mg/dl (7-24); CHLORIDE 102 mmol/L (98-107); CREATININE 0.92 mg/dL (0.55-1.02); POTASSIUM 3.1 mmol/L (3.5-5.1); SGOT/AST 19 IU/L (3-35); SGPT/ALT 47 U/L (12-78); SODIUM 138 mmol/L (136-145); TOTAL PROTEIN 7.7 gm/dL (6.4-8.2)
[2017-11-02] MEDS ORDERED: PYRIDIUM200 M1 PO (11:43)
[2017-11-02] MEDS ORDERED: SEPTDS PO (11:43)
== END 2017-11-02 11:53 | disposition home or self-care (01) ==
LOC: ED 10:03
PROVIDERS: Nurse Practitioner Family
DX: M54.5 Low back pain (principal); N39.0 Urinary tract infection, site not specified; E11.40 Type 2 diabetes mellitus with diabetic neuropathy, unspecified; E11.65 Type 2 diabetes mellitus with hyperglycemia; G47.33 Obstructive sleep apnea (adult) (pediatric); J44.9 Chronic obstructive pulmonary disease, unspecified; K21.9 Gastro-esophageal reflux disease without esophagitis; E78.2 Mixed hyperlipidemia; I11.0 Hypertensive heart disease with heart failure; I50.9 Heart failure, unspecified; E78.00 Pure hypercholesterolemia, unspecified; Z79.899 Other long term (current) drug therapy; Z88.8 Allergy status to other drugs, medicaments and biological substances; Z90.49 Acquired absence of other specified parts of digestive tract; Z98.890 Other specified postprocedural states; Z88.6 Allergy status to analgesic agent; X50.0XXA Overexertion from strenuous movement or load, initial encounter; Y93.89 Activity, other specified; Y92.89 Other specified places as the place of occurrence of the external cause; Y99.9 Unspecified external cause status

== ENCOUNTER 2017-11-29 08:56 | Emergency (ER) | payer OTHER ==
[~2017-11-29 08:56] MED LIST changes: +CHLORZOXAZONE500 M2 PO
[2017-11-29 08:59] VITALS: BP 148/86
[2017-11-29] MEDS ORDERED: ZOFRAN ODT4 MG SL (09:33)
== END 2017-11-29 09:42 | disposition home or self-care (01) ==
LOC: ED 08:56
DX: J02.9 Acute pharyngitis, unspecified (principal); K29.00 Acute gastritis without bleeding; J44.9 Chronic obstructive pulmonary disease, unspecified; I11.0 Hypertensive heart disease with heart failure; I50.30 Unspecified diastolic (congestive) heart failure; K21.9 Gastro-esophageal reflux disease without esophagitis; E78.2 Mixed hyperlipidemia; E11.40 Type 2 diabetes mellitus with diabetic neuropathy, unspecified; Z90.49 Acquired absence of other specified parts of digestive tract; Z88.8 Allergy status to other drugs, medicaments and biological substances; Z79.2 Long term (current) use of antibiotics; Z79.899 Other long term (current) drug therapy

== ENCOUNTER 2017-12-02 22:10 | Emergency (ER) | payer OTHER ==
[~2017-12-02] VITALS: Ht 157.4 cm; Wt 59.9 kg
[2017-12-02 22:11] VITALS: BP 117/70
== END 2017-12-03 01:09 | disposition home or self-care (01) ==
LOC: ED 22:10
DX: M54.16 Radiculopathy, lumbar region (principal); Z88.8 Allergy status to other drugs, medicaments and biological substances; Z88.6 Allergy status to analgesic agent; Z79.899 Other long term (current) drug therapy; Z90.49 Acquired absence of other specified parts of digestive tract

== ENCOUNTER 2017-12-19 17:10 | Emergency (ER) | payer OTHER ==
[~2017-12-19] VITALS: Ht 157.4 cm; Wt 59.0 kg
[2017-12-19 17:40] LABS: HEMATOCRIT 44.2 % (37.0-47.0); HEMOGLOBIN 15.1 g/dl (12.0-16.0); MEAN CORPUSCULAR HGB 29.4 pg (27.0-31.0); MEAN CORPUSCULAR HGB CONC 34.2 g/dl (33.0-37.0); MEAN PLATELET VOLUME 11.1 fl (9.6-12.3); PLATELET COUNT AUTOMATED 316 10*3/uL (130-400); RED BLOOD COUNT 5.14 10*6/uL (4.10-5.10); RED CELL DISTRI WIDTH 13.3 % (0-14.5); WHITE BLOOD COUNT 13.9 10*3/uL (4.8-10.8)
[2017-12-19 17:53] LABS: ALBUMIN 3.8 gm/dl (3.1-4.5); ALKALINE PHOSPHATASE 108 U/L (45-117); BUN 9 mg/dl (7-24); CHLORIDE 108 mmol/L (98-107); CREATININE 0.82 mg/dL (0.55-1.02); LIPASE 245 U/L (73-393); POTASSIUM 3.5 mmol/L (3.5-5.1); SGOT/AST 19 IU/L (3-35); SGPT/ALT 44 U/L (12-78); SODIUM 138 mmol/L (136-145); TOTAL PROTEIN 7.5 gm/dL (6.4-8.2)
[2017-12-19 17:56] LABS: BILIRUBIN NEGATIVE (NEGATIVE); BLOOD NEGATIVE (NEGATIVE); CLARITY CLEAR (CLEAR); COLOR YELLOW (YELLOW); GLUCOSE 3+ (NEGATIVE); KETONE NEGATIVE (NEGATIVE); LEUKO ESTERASE NEGATIVE (NEGATIVE); NITRITE NEGATIVE (NEGATIVE); SPECIFIC GRAVITY <= 1.005 (1.005-1.030); UROBILINOGEN 0.2 E.U./dl (0.2-1.0)
[2017-12-19 18:02] LABS: BACTERIA TRACE; EPITHELIAL CELLS 41-50; YEAST TRACE
[2017-12-19 18:05] LABS: ATYPICAL LYMPHS 1 % (0-0); PLATELET SUFFICIENCY NORMAL (NORMAL); TOTAL CELLS COUNTED 100 #CELLS
[2017-12-19 19:43] VITALS: BP 114/74
[2017-12-19] MEDS ORDERED: MIRALAX POWDER255 G1 PO (20:57)
== END 2017-12-19 21:01 | disposition home or self-care (01) ==
LOC: ED 17:10
PROVIDERS: Nurse Practitioner Family
DX: K59.00 Constipation, unspecified (principal); E11.9 Type 2 diabetes mellitus without complications; I10 Essential (primary) hypertension; J44.9 Chronic obstructive pulmonary disease, unspecified; E78.5 Hyperlipidemia, unspecified; Z90.49 Acquired absence of other specified parts of digestive tract; Z88.8 Allergy status to other drugs, medicaments and biological substances; Z79.899 Other long term (current) drug therapy; Z79.2 Long term (current) use of antibiotics

== ENCOUNTER 2017-12-27 15:08 | Emergency (ER) | payer OTHER ==
[~2017-12-27] VITALS: Ht 157.4 cm; Wt 59.0 kg
[~2017-12-27 15:08] MED LIST changes: +MIRALAX POWDER255 G1 PO
[2017-12-27 16:07] VITALS: BP 131/92
[2017-12-27 16:33] LABS: BILIRUBIN NEGATIVE (NEGATIVE); BLOOD TRACE-INTACT (NEGATIVE); CLARITY CLOUDY (CLEAR); COLOR YELLOW (YELLOW); GLUCOSE 3+ (NEGATIVE); KETONE NEGATIVE (NEGATIVE); LEUKO ESTERASE 1+ (NEGATIVE); NITRITE NEGATIVE (NEGATIVE); SPECIFIC GRAVITY <= 1.005 (1.005-1.030); UROBILINOGEN 0.2 E.U./dl (0.2-1.0)
[2017-12-27 16:41] LABS: BACTERIA 2+; EPITHELIAL CELLS 51-100
[2017-12-27] MEDS ORDERED: TYLENOL EXTRA500 MG PO (17:16)
== END 2017-12-27 17:29 | disposition home or self-care (01) ==
LOC: ED 15:08
PROVIDERS: Physician Assistant
DX: M79.604 Pain in right leg (principal); M79.605 Pain in left leg; E11.9 Type 2 diabetes mellitus without complications; I10 Essential (primary) hypertension; G43.909 Migraine, unspecified, not intractable, without status migrainosus; Z88.8 Allergy status to other drugs, medicaments and biological substances; Z88.6 Allergy status to analgesic agent; Z79.899 Other long term (current) drug therapy

== ENCOUNTER → 2018-03-14 | Outpatient (CLI) | payer OTHER ==
[~2018-03-14] MED LIST changes: +POTASSIUM CHLO20 ME3 PO; +TYLENOL EXTRA500 MG PO
== END | disposition home or self-care (01) ==
LOC: US 01:45
DX: R10.2 Pelvic and perineal pain (principal)

== ENCOUNTER 2018-03-17 13:10 | Emergency (ER) | payer OTHER ==
[~2018-03-17] VITALS: Ht 157.4 cm; Wt 61.2 kg
[~2018-03-17 13:10] MED LIST changes: -POTASSIUM CHLO20 ME3 PO; -VITAMIN D400 I1 PO; +VITAMIN D5000 UNIT PO
[2018-03-17 14:17] LABS: BASO # 0.1 10*3/uL (0.0-0.1); BASO % 0.5 % (0.0-1.0); EOS # 0.2 10*3/uL (0.0-0.4); EOS % 1.4 % (1.0-4.0); HEMATOCRIT 44.9 % (37.0-47.0); HEMOGLOBIN 15.6 g/dl (12.0-16.0); LYMPH # 3.1 10*3/uL (1.3-4.4); LYMPH % 30.2 % (27.0-41.0); MEAN CELL VOLUME 89.1 fl (81.0-99.0); MEAN CORPUSCULAR HGB CONC 34.7 g/dl (33.0-37.0); MEAN PLATELET VOLUME 10.7 fl (9.6-12.3); MONO # 0.6 10*3/uL (0.1-1.0); MONO % 5.6 % (3.0-9.0); NEUT # 6.4 10*3/uL (2.3-7.9); NEUT % 61.6 % (47.0-73.0); PLATELET COUNT AUTOMATED 305 10*3/uL (130-400); RED BLOOD COUNT 5.04 10*6/uL (4.10-5.10); RED CELL DISTRI WIDTH 13.6 % (0-14.5); WHITE BLOOD COUNT 10.4 10*3/uL (4.8-10.8)
[2018-03-17 14:30] LABS: BILIRUBIN NEGATIVE (NEGATIVE); BLOOD 3+ (NEGATIVE); CLARITY CLEAR (CLEAR); COLOR YELLOW (YELLOW); GLUCOSE 3+ (NEGATIVE); KETONE 1+ (NEGATIVE); LEUKO ESTERASE NEGATIVE (NEGATIVE); NITRITE NEGATIVE (NEGATIVE)
[2018-03-17 14:30] LABS: ALBUMIN 3.5 gm/dl (3.1-4.5); ALKALINE PHOSPHATASE 105 U/L (45-117); BUN 11 mg/dl (7-24); CHLORIDE 102 mmol/L (98-107); CREATININE 0.92 mg/dL (0.55-1.02); POTASSIUM 2.9 mmol/L (3.5-5.1); SGOT/AST 24 IU/L (3-35); SGPT/ALT 40 U/L (12-78); SODIUM 138 mmol/L (136-145); TOTAL PROTEIN 7.3 gm/dL (6.4-8.2)
[2018-03-17 14:39] LABS: RBC 31-40 rbc/hpf (0-2); WBC 0-2 wbc/hpf (0-5)
[2018-03-17] MEDS ORDERED: POTASSIUM CHLO20 ME3 PO (16:39)
[2018-03-17 16:55] VITALS: BP 124/70
[2018-03-20 12:11] LABS: GONOCOCCUS BY NAA Negative (Negative)
== END 2018-03-17 16:49 | disposition home or self-care (01) ==
LOC: ED 13:10
PROVIDERS: Family Medicine
DX: N93.8 Other specified abnormal uterine and vaginal bleeding (principal); E87.6 Hypokalemia; Z79.899 Other long term (current) drug therapy; Z88.6 Allergy status to analgesic agent; Z88.8 Allergy status to other drugs, medicaments and biological substances

== ENCOUNTER 2018-04-07 16:35 | Emergency (ER) | payer OTHER ==
[~2018-04-07] VITALS: Ht 157.4 cm; Wt 62.1 kg
[~2018-04-07 16:35] MED LIST changes: +POTASSIUM CHLO20 ME3 PO
[2018-04-07 16:39] VITALS: BP 142/80
== END 2018-04-07 20:45 | disposition home or self-care (01) ==
LOC: ED 16:35
DX: G43.909 Migraine, unspecified, not intractable, without status migrainosus (principal); Z88.6 Allergy status to analgesic agent; Z88.8 Allergy status to other drugs, medicaments and biological substances; Z79.899 Other long term (current) drug therapy

== ENCOUNTER 2018-04-20 10:55 | Emergency (ER) | payer OTHER ==
[~2018-04-20] VITALS: Ht 157.4 cm; Wt 61.2 kg
[2018-04-20 10:58] VITALS: BP 166/98
== END 2018-04-20 14:00 | disposition home or self-care (01) ==
LOC: ED 10:55
DX: S39.012A Strain of muscle, fascia and tendon of lower back, initial encounter (principal); S13.9XXA Sprain of joints and ligaments of unspecified parts of neck, initial encounter; M25.552 Pain in left hip; Z79.2 Long term (current) use of antibiotics; Z79.899 Other long term (current) drug therapy; Z88.8 Allergy status to other drugs, medicaments and biological substances; Y04.2XXA Assault by strike against or bumped into by another person, initial encounter; Y93.89 Activity, other specified; Y92.89 Other specified places as the place of occurrence of the external cause; Y99.8 Other external cause status

== ENCOUNTER 2018-05-28 20:01 | Emergency (ER) | payer OTHER ==
[~2018-05-28] VITALS: Ht 157.4 cm; Wt 61.2 kg
[2018-05-28 20:05] VITALS: BP 137/91
== END 2018-05-28 22:10 | disposition home or self-care (01) ==
LOC: ED 20:01
DX: G89.29 Other chronic pain (principal); M54.2 Cervicalgia; R42 Dizziness and giddiness; R11.0 Nausea; J44.9 Chronic obstructive pulmonary disease, unspecified; E78.5 Hyperlipidemia, unspecified; I11.0 Hypertensive heart disease with heart failure; I50.30 Unspecified diastolic (congestive) heart failure; K21.9 Gastro-esophageal reflux disease without esophagitis; E11.40 Type 2 diabetes mellitus with diabetic neuropathy, unspecified; Z88.6 Allergy status to analgesic agent; Z88.8 Allergy status to other drugs, medicaments and biological substances; Z79.899 Other long term (current) drug therapy

== ENCOUNTER 2018-06-17 17:12 | Emergency (ER) | payer OTHER ==
[~2018-06-17] VITALS: Ht 157.4 cm; Wt 59.9 kg
--- NOTE | ~2018-06-17 | EKG ---
[place], [place] ELECTROCARDIOGRAM REPORT NAME: JOAN SALAZAR UNIT #: [id number] ROOM: DOCTOR: EPIPHANY DRAFT REPORT BIRTHDATE: [birth year] [facility] Test Date: 2018-06-17 Test Time: 18:29:08 Pat Name: JOAN SALAZAR Department: Room: Gender: F In Home Caregiver: Wilma Hernandez : 1975 Requested By: DIEGO STOUT Order Number: [id number] Reading MD: Derek Epps MD Measurements Intervals [place] Rate: 103 P: 74 MS: 138 QRS: 12 QRSD: 81 T: 78 QT: 527 QTc: 690 Interpretive Statements Sinus tachycardia Minimal ST depression, anterolateral leads Prolonged QT interval No previous ECG available for comparison Electronically Signed On 06-20-2018 8:09:47 PDT by Derek Epps MD CM:EKGRPT:ELECTROCARDIOGRAM REPORT [id number] [address]IEGO [address]OUT EPIPHANY DRAFT REPORT DIEGO STOUT
[2018-06-17 17:54] LABS: BILIRUBIN NEGATIVE (NEGATIVE); BLOOD TRACE-INTACT (NEGATIVE); CLARITY CLEAR (CLEAR); COLOR YELLOW (YELLOW); GLUCOSE 3+ (NEGATIVE); KETONE NEGATIVE (NEGATIVE); LEUKO ESTERASE NEGATIVE (NEGATIVE); NITRITE NEGATIVE (NEGATIVE); SPECIFIC GRAVITY 1.015 (1.005-1.030); UROBILINOGEN 0.2 E.U./dl (0.2-1.0)
[2018-06-17 18:00] LABS: BACTERIA 1+
[2018-06-17 18:17] LABS: BASO # 0.1 10*3/uL (0.0-0.1); BASO % 0.7 % (0.0-1.0); EOS % 0.3 % (1.0-4.0); HEMATOCRIT 48.5 % (37.0-47.0); HEMOGLOBIN 16.9 g/dl (12.0-16.0); LYMPH % 23.2 % (27.0-41.0); MEAN CELL VOLUME 86.3 fl (81.0-99.0); MEAN CORPUSCULAR HGB 30.1 pg (27.0-31.0); MEAN CORPUSCULAR HGB CONC 34.8 g/dl (33.0-37.0); MEAN PLATELET VOLUME 11.6 fl (9.6-12.3); MONO # 0.8 10*3/uL (0.1-1.0); MONO % 6.2 % (3.0-9.0); NEUT # 8.8 10*3/uL (2.3-7.9); NEUT % 69.1 % (47.0-73.0); PLATELET COUNT AUTOMATED 333 10*3/uL (130-400); RED BLOOD COUNT 5.62 10*6/uL (4.10-5.10); RED CELL DISTRI WIDTH 13.2 % (0-14.5); WHITE BLOOD COUNT 12.8 10*3/uL (4.8-10.8)
[2018-06-17 19:37] LABS: ACT PARTIAL THROMBO TIME 21.9 SECONDS (20.8-31.5)
[2018-06-17 19:45] LABS: ALBUMIN 4.4 gm/dl (3.1-4.5); ALKALINE PHOSPHATASE 99 U/L (45-117); BUN 8 mg/dl (7-24); CHLORIDE 103 mmol/L (98-107); CREATININE 0.68 mg/dL (0.55-1.02); LIPASE 270 U/L (73-393); POTASSIUM 2.9 mmol/L (3.5-5.1); SGOT/AST 19 IU/L (3-35); SGPT/ALT 37 U/L (12-78); SODIUM 137 mmol/L (136-145); TOTAL PROTEIN 7.8 gm/dL (6.4-8.2)
[2018-06-17 19:47] VITALS: BP 122/82
[2018-06-17 19:49] LABS: TROPONIN I < 0.015 ng/ml (<0.045)
== END 2018-06-17 20:45 | disposition home or self-care (01) ==
LOC: ED 17:12
PROVIDERS: Nurse Practitioner Family
DX: R51 Headache (principal); R05 Cough; I11.0 Hypertensive heart disease with heart failure; I50.30 Unspecified diastolic (congestive) heart failure; J44.9 Chronic obstructive pulmonary disease, unspecified; K21.9 Gastro-esophageal reflux disease without esophagitis; E78.2 Mixed hyperlipidemia; E11.40 Type 2 diabetes mellitus with diabetic neuropathy, unspecified; Z88.8 Allergy status to other drugs, medicaments and biological substances; Z88.6 Allergy status to analgesic agent; Z79.899 Other long term (current) drug therapy

== ENCOUNTER → 2018-07-23 | Outpatient (CLI) | payer OTHER ==
[~2018-07-23] MED LIST changes: +AMITRIPTYLINE25 MG PO; +ATARAX,VISTARIL50 MG PO; +ATORVASTATIN CA80 M1 PO; +BACLOFEN5 MG PO; +BENZONATATE100 M1 PO; +BUSPIRONE HCL10 MG PO; +FENOFIBRATE54 MG PO; +FEROSUL325 MG PO; +FLUTICASONE P15.8 ML NAS; +GABAPENTIN600 MG PO; +MIRTAZAPINE15 M2 PO; +REPAGLINIDE2 M1 PO; +STEGLATRO15 MG PO; +TRAZODONE50 MG PO; +VIIBRYD40 PO
[2018-07-23 10:29] LABS: ALBUMIN 4.6 gm/dl (3.1-4.5); ALKALINE PHOSPHATASE 84 U/L (45-117); BUN 17 mg/dl (7-24); CHLORIDE 103 mmol/L (98-107); CREATININE 0.92 mg/dL (0.55-1.02); POTASSIUM 3.9 mmol/L (3.5-5.1); SGOT/AST 17 IU/L (3-35); SGPT/ALT 38 U/L (12-78); SODIUM 139 mmol/L (136-145)
== END | disposition home or self-care (01) ==
LOC: US 06-20 10:00 → LAB 02:01 → US 10:00
PROVIDERS: Nurse Practitioner Family
DX: E87.6 Hypokalemia (principal); E55.9 Vitamin D deficiency, unspecified; G25.81 Restless legs syndrome; R10.84 Generalized abdominal pain

== ENCOUNTER 2018-08-24 21:31 | Emergency (ER) | payer OTHER ==
[~2018-08-24] VITALS: Wt 57.6 kg
--- NOTE | ~2018-08-24 | EKG ---
[place], [place] ELECTROCARDIOGRAM REPORT NAME: JOAN SALAZAR UNIT #: [id number] ROOM: DOCTOR: EPIPHANY DRAFT REPORT BIRTHDATE: [birth year] [facility] Test Date: 2018-08-24 Test Time: 22:05:12 Pat Name: JOAN SALAZAR Department: ED Room: 8 Gender: F Press Cleaner: Jessica Weber : 1975 Requested By: LUCINDA MURGUIA Order Number: [id number] Reading MD: Jose Cadena MD Measurements Intervals [place] Rate: 94 P: 79 KS: 156 QRS: 17 QRSD: 77 T: 78 QT: 369 QTc: 462 Interpretive Statements Sinus rhythm Compared to ECG 06/17/2018 18:29:08 Sinus tachycardia no longer present ST (T wave) deviation no longer present Prolonged QT interval no longer present Electronically Signed On 08-26-2018 9:51:25 PDT by Jose Cadena MD CM:EKGRPT:ELECTROCARDIOGRAM REPORT [id number] LUCINDA MARTINEZ DRAFT REPORT LUCINDA MURGUIA DO
[~2018-08-24 21:31] MED LIST changes: -AMITRIPTYLINE25 MG PO; -ATARAX,VISTARIL50 MG PO; -ATORVASTATIN CA80 M1 PO; -BACLOFEN5 MG PO; -BENZONATATE100 M1 PO; -BUSPIRONE HCL10 MG PO; -FENOFIBRATE54 MG PO; -FEROSUL325 MG PO; -FLUTICASONE P15.8 ML NAS; -GABAPENTIN600 MG PO; -MIRTAZAPINE15 M2 PO; -REPAGLINIDE2 M1 PO; -STEGLATRO15 MG PO; -TRAZODONE50 MG PO; -VIIBRYD40 PO
[2018-08-24 21:35] VITALS: BP 118/61
[2018-08-24 22:17] LABS: HEMATOCRIT 39.5 % (37.0-47.0); HEMOGLOBIN 13.1 g/dl (12.0-16.0); MEAN CELL VOLUME 90.4 fl (81.0-99.0); MEAN CORPUSCULAR HGB CONC 33.2 g/dl (33.0-37.0); MEAN PLATELET VOLUME 10.7 fl (9.6-12.3); PLATELET COUNT AUTOMATED 342 10*3/uL (130-400); RED BLOOD COUNT 4.37 10*6/uL (4.10-5.10); RED CELL DISTRI WIDTH 13.6 % (0-14.5); WHITE BLOOD COUNT 12.6 10*3/uL (4.8-10.8)
[2018-08-24 22:31] LABS: ALKALINE PHOSPHATASE 78 U/L (45-117); BUN 14 mg/dl (7-24); CHLORIDE 106 mmol/L (98-107); CREATININE 0.81 mg/dL (0.55-1.02); POTASSIUM 3.6 mmol/L (3.5-5.1); SGOT/AST 24 IU/L (3-35); SGPT/ALT 38 U/L (12-78); SODIUM 141 mmol/L (136-145); TOTAL PROTEIN 7.5 gm/dL (6.4-8.2)
[2018-08-24 22:35] LABS: TROPONIN I < 0.015 ng/ml (<0.045)
[2018-08-24 22:37] LABS: TOTAL CELLS COUNTED 100 #CELLS
[2018-08-24 22:38] LABS: PLATELET SUFFICIENCY NORMAL (NORMAL)
[2018-08-24 23:51] LABS: BILIRUBIN NEGATIVE (NEGATIVE); BLOOD NEGATIVE (NEGATIVE); CLARITY SL CLOUDY (CLEAR); COLOR YELLOW (YELLOW); GLUCOSE 3+ (NEGATIVE); KETONE NEGATIVE (NEGATIVE); LEUKO ESTERASE 1+ (NEGATIVE); NITRITE NEGATIVE (NEGATIVE); SPECIFIC GRAVITY 1.015 (1.005-1.030)
[2018-08-24 23:57] LABS: BACTERIA 2+; EPITHELIAL CELLS TNTC; WBC 16-20 wbc/hpf (0-5)
[2018-10-08] MEDS ORDERED: STEGLATRO15 MG PO (13:41)
== END 2018-08-25 00:28 | disposition home or self-care (01) ==
LOC: ED 21:31
PROVIDERS: Student in an Organized Health Care Education/Training Program
DX: R42 Dizziness and giddiness (principal); T43.215A Adverse effect of selective serotonin and norepinephrine reuptake inhibitors, initial encounter; R41.0 Disorientation, unspecified; J44.9 Chronic obstructive pulmonary disease, unspecified; K21.9 Gastro-esophageal reflux disease without esophagitis; I50.9 Heart failure, unspecified; I11.0 Hypertensive heart disease with heart failure; E78.5 Hyperlipidemia, unspecified; E11.40 Type 2 diabetes mellitus with diabetic neuropathy, unspecified; Z88.8 Allergy status to other drugs, medicaments and biological substances; Z88.6 Allergy status to analgesic agent; Z79.899 Other long term (current) drug therapy; Y92.89 Other specified places as the place of occurrence of the external cause

== ENCOUNTER 2018-09-11 23:08 | Inpatient (IN) | payer OTHER ==
[~2018-09-11] VITALS: Ht 157.4 cm; Wt 64.5 kg
--- NOTE | ~2018-09-11 | EKG ---
[place], [place] ELECTROCARDIOGRAM REPORT NAME: JOAN SALAZAR UNIT #: [id number] ROOM: [place] [address] DOCTOR: DIMPLE DRAFT REPORT BIRTHDATE: [birth year] [facility] Test Date: 2018-09-11 Test Time: 23:21:48 Pat Name: JOAN SALAZAR Department: Room: [place] [address] Gender: F Supervisor [employer]: : 1975 Requested By: HALI MONTALVO Order Number: [id number] Reading MD: Roger Sanchez Measurements Intervals [place] Rate: 121 P: 54 FL: 147 QRS: -18 QRSD: 68 T: 101 QT: 287 QTc: 408 Interpretive Statements Sinus tachycardia Probable left atrial enlargement Borderline left axis deviation Anteroseptal infarct, old Nonspecific T abnormalities, lateral leads Baseline wander in lead(s) V2 Compared to ECG 08/24/2018 22:05:12 Myocardial infarct finding now present T-wave abnormality now present Sinus rhythm no longer present Electronically Signed On 09-12-2018 6:28:22 PDT by Roger Sanchez CM:EKGRPT:ELECTROCARDIOGRAM REPORT [id number] HALI MONTALVO MD EPIPHANY DRAFT REPORT HALI MONTALVO MD
--- NOTE | ~2018-09-11 | CON ---
[place], [place] REPORT OF CONSULTATION NAME: JOAN SALAZAR [facility] #: [id number] UNIT #: [id number] ROOM: 512 DOCTOR: BRYAN PHD VIANCA BIRTHDATE: [birth year] DOS: 09/12/2018 HISTORY OF PRESENT ILLNESS: The patient is a 43-year-old female referred by the hospitalist with concerns for multiple psychiatric medications and trazodone withdrawal. At the present time, the patient is in the ICU at [facility]. She presented to the ED with nausea, vomiting, lightheadedness, dizziness, headache, fatigue, low appetite and teeth grinding. She had been on Remeron to treat insomnia for quite some time and was switched to trazodone on 08/19/2018. She then went to the ED on 08/24/2018 for reaction, where she felt manic and dizzy in the last week. She was taken off trazodone and put back on Remeron. She lives alone and has 4 children. She has been 3 times. She is on disability. She denied alcohol, tobacco and illegal drug use. PAST MEDICAL HISTORY: Asthma, chronic sciatica, constipation, COPD, depression, diastolic heart failure, dysfunctional uterine bleeding, GERD, hiatal hernia, hypertension, hyperlipidemia, IBS, insomnia, iron deficiency anemia, lumbar radiculopathy, nonalcoholic fatty liver disease, neuropathy, obstructive sleep apnea, scoliosis, syncope, type 2 diabetes and vitamin D deficiency. MEDICATIONS: Rocephin, [place]. The patient's home psychiatric medications include buspirone HCL, Atarax for itching, hydroxyzine pamoate, Remeron, Viibryd and she had recently stopped trazodone. MENTAL STATUS EXAMINATION: The patient was lying comfortably in bed, in no apparent distress. She is awake, alert and oriented to person, place and generally to time. Mood was depressed. Affect was blunted. She denied suicidal and homicidal ideation, plan, and intent. She denied a history of psychiatric hospitalization. She follows with Leti Mehta for her medications and [facility] She has struggled with sleep for quite some time, which was made worse when she stopped taking trazodone. She reports current symptoms of subjective sense of sadness, excessive worry, poor concentration and poor appetite. Speech and language were within normal limits conversationally. Thought process was linear and goal directed. There is no evidence of hallucinations and delusions. DIAGNOSIS: Unspecified bipolar disorder, unspecified anxiety disorder. PLAN: I spoke with Dr. Cruz about the patient's medications. He suggested just continuing buspirone and Viibryd in favor of Vraylar 1.5 mg. She also plans to continue her outpatient psychiatric care after discharge. The patient also plans to continue to follow up with her outpatient psychiatric providers upon discharge. Thank you very much for this consult. [place], [place] REPORT OF CONSULTATION NAME: JOAN SALAZAR UNIT #: [id number] ROOM: 512 DOCTOR: BRYAN, PHD VIANCA BIRTHDATE: [birth year] Brandy Moreno, PhD CM:CONSTR:REPORT OF CONSULTATION 1134 09/13/18 0014 interface
[2018-09-11 23:10] VITALS: BP 131/88
[2018-09-11 23:51] VITALS: BP 126/58
[2018-09-12] VITALS (11 sets, daily range): BP systolic 92–145; BP diastolic 56–80
[2018-09-12 00:31] LABS: HEMATOCRIT 43.5 % (37.0-47.0); HEMOGLOBIN 15.5 g/dl (12.0-16.0); MEAN CELL VOLUME 89.7 fl (81.0-99.0); MEAN CORPUSCULAR HGB CONC 35.6 g/dl (33.0-37.0); MEAN PLATELET VOLUME 11.2 fl (9.6-12.3); NUCLEATED RED BLOOD CELL 0.2 % (0.0-0.0); PLATELET COUNT AUTOMATED 375 10*3/uL (130-400); RED BLOOD COUNT 4.85 10*6/uL (4.10-5.10); RED CELL DISTRI WIDTH 13.4 % (0-14.5); WHITE BLOOD COUNT 11.5 10*3/uL (4.8-10.8)
[2018-09-12 00:32] LABS: ACT PARTIAL THROMBO TIME 22.7 SECONDS (20.0-32.1); INTERNATIONAL NORM RATIO 0.8 (2.0-3.5)
[2018-09-12 00:53] LABS: ACETAMINOPHEN (TYLENOL) < 5.0 ug/ml (10-30); ALBUMIN 4.6 gm/dl (3.1-4.5); ALKALINE PHOSPHATASE 107 U/L (45-117); BETA-HCG, QUANT < 1.0 mIU/mL (1-3); BUN 10 mg/dl (7-24); CHLORIDE 101 mmol/L (98-107); CPK 176 U/L (26-192); CREATININE 0.98 mg/dL (0.55-1.02); ETHYL ALCOHOL < 3.0 mg/dl (<3); SGOT/AST 103 IU/L (3-35); SGPT/ALT 127 U/L (12-78); SODIUM 135 mmol/L (136-145); TOTAL PROTEIN 8.5 gm/dL (6.4-8.2)
[2018-09-12 01:01] LABS: BASOPHILS 1 % (0-1); PLATELET SUFFICIENCY NORMAL (NORMAL); TOTAL CELLS COUNTED 100 #CELLS
[2018-09-12 01:45] LABS: TROPONIN I < 0.015 ng/ml (<0.045)
[2018-09-12] MEDS ORDERED: TRAZODONE50 MG PO (02:42)
[2018-09-12] MEDS ORDERED: GABAPENTIN600 MG PO (02:43)
[2018-09-12] MEDS ORDERED: ATORVASTATIN CA80 M1 PO (02:47)
[2018-09-12] MEDS ORDERED: FENOFIBRATE54 MG PO (02:48)
[2018-09-12] MEDS ORDERED: BUSPIRONE HCL10 MG PO (02:50)
[2018-09-12] MEDS ORDERED: VIIBRYD40 PO (02:52)
[2018-09-12] MEDS ORDERED: FEROSUL325 MG PO (02:55)
[2018-09-12] MEDS ORDERED: REPAGLINIDE2 M1 PO (03:03)
[2018-09-12] MEDS ORDERED: BACLOFEN5 MG PO (03:07)
[2018-09-12] MEDS ORDERED: BENZONATATE100 M1 PO (03:09)
[2018-09-12] MEDS ORDERED: LOPERAMIDE HCL2 MG PO (03:12)
[2018-09-12] MEDS ORDERED: MIRTAZAPINE15 M2 PO (03:13)
[2018-09-12] MEDS ORDERED: ATARAX,VISTARIL50 MG PO (03:23)
[2018-09-12 05:13] LABS: BILIRUBIN NEGATIVE (NEGATIVE); BLOOD 1+ (NEGATIVE); CLARITY CLEAR (CLEAR); COLOR YELLOW (YELLOW); GLUCOSE NEGATIVE (NEGATIVE); KETONE NEGATIVE (NEGATIVE); LEUKO ESTERASE 1+ (NEGATIVE); NITRITE NEGATIVE (NEGATIVE); PH 5.5 (5.0-9.0); UROBILINOGEN 0.2 E.U./dl (0.2-1.0)
[2018-09-12 05:22] LABS: URINE AMPHETAMINES < 1000 (1000ng/ml); URINE BARBITURATES < 200 (200ng/ml); URINE BENZODIAZEPINES < 200 (200ng/ml); URINE CANNABINOIDS (THC) < 50 (50ng/ml); URINE COCAINE < 300 (300ng/ml); URINE METHADONE < 300 (300ng/ml); URINE OPIATES < 300 (300ng/ml)
[2018-09-12 05:26] LABS: URINE PHENCYCLIDINE < 25 (25ng/ml)
[2018-09-12 05:27] LABS: BACTERIA 1+; EPITHELIAL CELLS 15-20
[2018-09-12 05:30] LABS: BUN 9 mg/dl (7-24); CHLORIDE 104 mmol/L (98-107); POTASSIUM 3.3 mmol/L (3.5-5.1); SODIUM 137 mmol/L (136-145)
[2018-09-12 05:56] LABS: BASO # 0.1 10*3/uL (0.0-0.1); BASO % 0.9 % (0.0-1.0); EOS # 0.2 10*3/uL (0.0-0.4); EOS % 2.8 % (1.0-4.0); LYMPH # 4.8 10*3/uL (1.3-4.4); LYMPH % 54.9 % (27.0-41.0); MEAN CELL VOLUME 89.8 fl (81.0-99.0); MEAN CORPUSCULAR HGB 30.8 pg (27.0-31.0); MEAN CORPUSCULAR HGB CONC 34.3 g/dl (33.0-37.0); MEAN PLATELET VOLUME 11.1 fl (9.6-12.3); MONO # 0.6 10*3/uL (0.1-1.0); MONO % 6.7 % (3.0-9.0); NEUT % 34.2 % (47.0-73.0); PLATELET COUNT AUTOMATED 288 10*3/uL (130-400); RED BLOOD COUNT 4.02 10*6/uL (4.10-5.10); RED CELL DISTRI WIDTH 13.4 % (0-14.5); WHITE BLOOD COUNT 8.7 10*3/uL (4.8-10.8)
[2018-09-12 05:58] LABS: HEMATOCRIT 36.1 % (37.0-47.0); HEMOGLOBIN 12.4 g/dl (12.0-16.0)
[2018-09-12] MEDS ORDERED: PHENERGAN25 M3 PO (13:29)
[2018-09-12] MEDS ORDERED: AMITRIPTYLINE25 MG PO (13:37)
[2018-09-12] MEDS ORDERED: FLUTICASONE P15.8 ML NAS (13:41)
[2018-09-13] VITALS: BP 122/68
[2018-09-13 00:35] VITALS: BP 100/62
[2018-09-13 04:00] VITALS: BP 100/70
[2018-09-13 08:00] VITALS: BP 98/66
[2018-09-13 11:15] VITALS: BP 120/66
== END 2018-09-13 14:22 | disposition home or self-care (01) | DRG 690 ==
LOC: ED 23:08 → EDHOLD 09-12 01:43 → 5E 09-12 01:43 → ICCU 09-12 01:43 → 5E 09-12 18:03
PROVIDERS: Family Medicine; Internal Medicine; ADMIT Internal Medicine
DX: N39.0 Urinary tract infection, site not specified (principal); I50.32 Chronic diastolic (congestive) heart failure; R65.10 Systemic inflammatory response syndrome (SIRS) of non-infectious origin without acute organ dysfunction; E87.2 Acidosis; E87.1 Hypo-osmolality and hyponatremia; T44.3X5A Adverse effect of other parasympatholytics [anticholinergics and antimuscarinics] and spasmolytics, initial encounter; I95.9 Hypotension, unspecified; J44.9 Chronic obstructive pulmonary disease, unspecified; D50.9 Iron deficiency anemia, unspecified; E11.65 Type 2 diabetes mellitus with hyperglycemia; K21.9 Gastro-esophageal reflux disease without esophagitis; E78.5 Hyperlipidemia, unspecified; E87.6 Hypokalemia; J45.909 Unspecified asthma, uncomplicated; F31.9 Bipolar disorder, unspecified; E11.42 Type 2 diabetes mellitus with diabetic polyneuropathy; K58.9 Irritable bowel syndrome, unspecified; G47.33 Obstructive sleep apnea (adult) (pediatric); G47.00 Insomnia, unspecified; I11.0 Hypertensive heart disease with heart failure; E83.51 Hypocalcemia; F41.9 Anxiety disorder, unspecified; Z88.6 Allergy status to analgesic agent; Z88.8 Allergy status to other drugs, medicaments and biological substances; Z79.899 Other long term (current) drug therapy; Z79.1 Long term (current) use of non-steroidal anti-inflammatories (NSAID); Z90.49 Acquired absence of other specified parts of digestive tract; Z82.49 Family history of ischemic heart disease and other diseases of the circulatory system; Z79.51 Long term (current) use of inhaled steroids; Y92.89 Other specified places as the place of occurrence of the external cause

== ENCOUNTER → 2018-10-18 | Day surgery (SDC) | payer OTHER ==
[~2018-10-18] VITALS: Ht 157.4 cm; Wt 63.5 kg
[~2018-10-18] MED LIST changes: +AMITRIPTYLINE25 MG PO; +ATARAX,VISTARIL50 MG PO; +ATORVASTATIN CA80 M1 PO; +BACLOFEN5 MG PO; +BENZONATATE100 M1 PO; +BUSPIRONE HCL10 MG PO; +FENOFIBRATE54 MG PO; +FEROSUL325 MG PO; +FLUTICASONE P15.8 ML NAS; +GABAPENTIN600 MG PO; +MIRTAZAPINE15 M2 PO; +REPAGLINIDE2 M1 PO; +STEGLATRO15 MG PO; +TRAZODONE50 MG PO; +VIIBRYD40 PO
--- NOTE | ~2018-10-18 | O ---
[place], [place] OPERATIVE NOTE NAME: JOAN SALAZAR UNIT #: [id number] ROOM: DOCTOR: ARMEN CHAVEZ MD BIRTHDATE: [birth year] DOS: 10/18/2018 PROCEDURE: Esophagogastroduodenoscopy and biopsy. INDICATION: Dysphagia and abdominal pain. An informed consent was obtained from the patient after indication of procedure, the alternatives and potential complications were explained to her. PROCEDURE MEDICATION: Sedation was administered by Anesthesiology Department. Scope used was Olympus diagnostic adult upper endoscope GIF-180, depth of insertion was to the descending duodenum. FINDINGS: After adequate sedation, the patient was placed in left lateral decubitus position. The scope was introduced under direct visualization through the upper esophageal sphincter into the esophagus. Esophageal mucosa appeared normal with no ulcerations or strictures. Lower esophageal sphincter was identified at 36 cm from incisors, normal appearing Z line. Random biopsies were obtained from the esophagus to rule out eosinophilic esophagitis. The stomach was then intubated. Gastric mucosa inspected. Moderate gastritis was seen. No discrete ulcers or active bleeding in addition to deformed wide open pylorus. A HUMAIRA test was performed from the gastric antrum and body. Retroflexed views in the fundus showed a grade 1 hiatal hernia. The pylorus was intubated easily. The duodenal bulb and descending duodenum were within normal range. The scope was then withdrawn after the stomach was decompressed. The patient tolerated the procedure well. IMPRESSION: 1. Small hiatal hernia. 2. Normal esophageal mucosa, random biopsies obtained. 3. Severe gastritis with deformed pylorus, HUMAIRA test performed. PLAN: We will review the HUMAIRA test and histopathology reports and treat the patient accordingly. Office followup will be scheduled in 2-3 weeks. [place], [place] OPERATIVE NOTE NAME: JOAN SALAZAR UNIT #: [id number] ROOM: DOCTOR: ARMEN CHAVEZ MD BIRTHDATE: [birth year] ARMEN CHAVEZ MD CM:OPRECORD:OPERATIVE NOTE [id number] ARMEN CHAVEZ MD 10/18/18 0933 interface
[2018-10-18 06:30] VITALS: BP 123/77
[2018-10-18 07:50] VITALS: BP 106/55
[2018-10-18 08:05] VITALS: BP 114/65
[2018-10-18 08:18] VITALS: BP 114/68
== END | disposition home or self-care (01) ==
LOC: SDC 10-11 08:45
DX: K44.9 Diaphragmatic hernia without obstruction or gangrene (principal); K29.70 Gastritis, unspecified, without bleeding; K21.9 Gastro-esophageal reflux disease without esophagitis; I10 Essential (primary) hypertension; J44.9 Chronic obstructive pulmonary disease, unspecified; E11.9 Type 2 diabetes mellitus without complications; F41.9 Anxiety disorder, unspecified; F32.9 Major depressive disorder, single episode, unspecified; G47.30 Sleep apnea, unspecified; E78.5 Hyperlipidemia, unspecified; Z98.890 Other specified postprocedural states; Z79.84 Long term (current) use of oral hypoglycemic drugs; Z79.899 Other long term (current) drug therapy; Z88.8 Allergy status to other drugs, medicaments and biological substances

== ENCOUNTER → 2018-11-25 | Outpatient (CLI) | payer OTHER | END | disposition home or self-care (01) | LOC: US 11-11 16:00 | DX: R10.2 Pelvic and perineal pain (principal) ==

== ENCOUNTER → 2019-03-13 | Outpatient (CLI) | payer OTHER | END | disposition home or self-care (01) | LOC: RAD 11:22 | DX: J01.91 Acute recurrent sinusitis, unspecified (principal); J44.9 Chronic obstructive pulmonary disease, unspecified; E11.9 Type 2 diabetes mellitus without complications ==

== ENCOUNTER → 2019-06-26 | Outpatient (CLI) | payer OTHER | END | disposition home or self-care (01) | LOC: MRI 10:00 | DX: M51.27 Other intervertebral disc displacement, lumbosacral region (principal); M54.16 Radiculopathy, lumbar region; M41.06 Infantile idiopathic scoliosis, lumbar region ==

== ENCOUNTER 2019-10-07 11:15 | Inpatient (IN) | payer OTHER ==
[~2019-10-07] VITALS: Ht 162.5 cm; Wt 66.5 kg
[~2019-10-07 11:15] MED LIST changes: -ESCITALOPRAM OXA5 MG PO; -HYDROXYZINE HCL25 MG PO; -LIPITOR80 MG PO; -NEURONTIN600 MG PO; -PROPRANOLOL HCL40 M1 PO; -VRAYLAR1.5 MG PO
[2019-10-07 11:34] VITALS: BP 130/83
[2019-10-07 12:33] LABS: BASO # 0.1 10*3/uL (0.0-0.1); BASO % 0.8 % (0.0-1.0); EOS # 0.5 10*3/uL (0.0-0.4); EOS % 3.4 % (1.0-4.0); HEMATOCRIT 44.6 % (37.0-47.0); LYMPH # 4.6 10*3/uL (1.3-4.4); LYMPH % 32.9 % (27.0-41.0); MEAN CELL VOLUME 92.3 fl (81.0-99.0); MEAN CORPUSCULAR HGB 30.2 pg (27.0-31.0); MEAN CORPUSCULAR HGB CONC 32.7 g/dl (33.0-37.0); MEAN PLATELET VOLUME 10.8 fl (9.6-12.3); MONO # 0.7 10*3/uL (0.1-1.0); MONO % 4.6 % (3.0-9.0); NEUT # 8.1 10*3/uL (2.3-7.9); NEUT % 57.9 % (47.0-73.0); PLATELET COUNT AUTOMATED 358 10*3/uL (130-400); RED BLOOD COUNT 4.83 10*6/uL (4.10-5.10)
[2019-10-07 12:45] LABS: ACT PARTIAL THROMBO TIME 22.8 SECONDS (20.0-32.1); INTERNATIONAL NORM RATIO 0.9 (2.0-3.5)
[2019-10-07 12:50] LABS: ALBUMIN 4.2 gm/dl (3.1-4.5); BUN 7 mg/dl (7-24); CHLORIDE 108 mmol/L (98-107); CREATININE 0.66 mg/dL (0.55-1.02); LIPASE 143 U/L (73-393); SGOT/AST 51 IU/L (3-35); SGPT/ALT 76 U/L (12-78); SODIUM 138 mmol/L (136-145)
[2019-10-07 12:52] LABS: ALKALINE PHOSPHATASE 98 U/L (45-117); POTASSIUM 3.4 mmol/L (3.5-5.1); TROPONIN I < 0.015 ng/ml (<0.045)
[2019-10-07 13:01] LABS: BILIRUBIN NEGATIVE (NEGATIVE); BLOOD 3+ (NEGATIVE); CLARITY SL CLOUDY (CLEAR); COLOR YELLOW (YELLOW); GLUCOSE 3+ (NEGATIVE); KETONE NEGATIVE (NEGATIVE); LEUKO ESTERASE NEGATIVE (NEGATIVE); NITRITE NEGATIVE (NEGATIVE); UROBILINOGEN 0.2 E.U./dl (0.2-1.0)
[2019-10-07 13:09] LABS: BACTERIA TRACE; RBC 21-30 rbc/hpf (0-2)
[2019-10-07 13:27] VITALS: BP 139/78
[2019-10-07 18:29] VITALS: BP 128/88
[2019-10-07 21:00] VITALS: BP 100/50
[2019-10-07 23:29] VITALS: BP 105/56
[2019-10-08 00:10] VITALS: BP 114/73
[2019-10-08] MEDS ORDERED: VRAYLAR1.5 MG PO (00:29)
[2019-10-08] MEDS ORDERED: CLARITIN10 MG PO (00:31)
[2019-10-08 07:00] LABS: BASO # 0.1 10*3/uL (0.0-0.1); BASO % 0.9 % (0.0-1.0); EOS # 0.6 10*3/uL (0.0-0.4); EOS % 6.1 % (1.0-4.0); HEMATOCRIT 39.8 % (37.0-47.0); LYMPH # 3.8 10*3/uL (1.3-4.4); LYMPH % 40.2 % (27.0-41.0); MEAN CELL VOLUME 94.3 fl (81.0-99.0); MEAN CORPUSCULAR HGB CONC 32.9 g/dl (33.0-37.0); MEAN PLATELET VOLUME 10.6 fl (9.6-12.3); MONO # 0.6 10*3/uL (0.1-1.0); MONO % 5.9 % (3.0-9.0); NEUT # 4.4 10*3/uL (2.3-7.9); NEUT % 46.5 % (47.0-73.0); PLATELET COUNT AUTOMATED 296 10*3/uL (130-400); RED BLOOD COUNT 4.22 10*6/uL (4.10-5.10); RED CELL DISTRI WIDTH 13.3 % (0-14.5); WHITE BLOOD COUNT 9.5 10*3/uL (4.8-10.8)
[2019-10-08 07:17] LABS: ALBUMIN 3.5 gm/dl (3.1-4.5); ALKALINE PHOSPHATASE 84 U/L (45-117); BUN 9 mg/dl (7-24); CHLORIDE 110 mmol/L (98-107); CHOLESTEROL 158 mg/dL (<200); CREATININE 0.58 mg/dL (0.55-1.02); FREE T4 1.09 ng/dl (0.76-1.46); HDL CHOLESTEROL 31 mg/dl (40-60); POTASSIUM 3.3 mmol/L (3.5-5.1); SGOT/AST 52 IU/L (3-35); SGPT/ALT 79 U/L (12-78); SODIUM 140 mmol/L (136-145); TOTAL PROTEIN 6.7 gm/dL (6.4-8.2); TRIGLYCERIDES 695 mg/dl (<150)
[2019-10-08 08:00] VITALS: BP 105/69
[2019-10-08 08:38] LABS: VITAMIN D, 25-HYDROXY 34.5 ng/mL (30-100)
[2019-10-08] MEDS ORDERED: LIPITOR80 MG PO (11:33)
[2019-10-08] MEDS ORDERED: PROPRANOLOL HCL40 M1 PO (11:38)
[2019-10-08] MEDS ORDERED: NEURONTIN600 MG PO (11:39)
[2019-10-08] MEDS ORDERED: VICTOZA 2-0.6 MG/0.1 SQ (11:39)
[2019-10-08] MEDS ORDERED: ESCITALOPRAM OXA5 MG PO (11:40)
[2019-10-08] MEDS ORDERED: STEGLATRO5 MG PO (11:40)
[2019-10-08] MEDS ORDERED: HYDROXYZINE HCL25 MG PO (11:41)
[2019-10-08] MEDS ORDERED: TRAZODONE50 MG PO (11:43)
[2019-10-08 12:00] VITALS: BP 127/76
[2019-10-08 16:00] VITALS: BP 126/82
[2019-10-08 20:00] VITALS: BP 125/87
[2019-10-09] VITALS: BP 127/74
[2019-10-09 06:35] LABS: BASO # 0.1 10*3/uL (0.0-0.1); BASO % 0.6 % (0.0-1.0); EOS # 0.1 10*3/uL (0.0-0.4); EOS % 0.9 % (1.0-4.0); HEMATOCRIT 38.7 % (37.0-47.0); LYMPH # 3.5 10*3/uL (1.3-4.4); LYMPH % 30.2 % (27.0-41.0); MEAN CELL VOLUME 93.9 fl (81.0-99.0); MEAN CORPUSCULAR HGB 30.6 pg (27.0-31.0); MEAN CORPUSCULAR HGB CONC 32.6 g/dl (33.0-37.0); MEAN PLATELET VOLUME 10.8 fl (9.6-12.3); MONO # 0.8 10*3/uL (0.1-1.0); PLATELET COUNT AUTOMATED 314 10*3/uL (130-400); RED BLOOD COUNT 4.12 10*6/uL (4.10-5.10); RED CELL DISTRI WIDTH 13.4 % (0-14.5); WHITE BLOOD COUNT 11.4 10*3/uL (4.8-10.8)
[2019-10-09 06:56] LABS: ALBUMIN 3.5 gm/dl (3.1-4.5); BUN 8 mg/dl (7-24); CHLORIDE 111 mmol/L (98-107); POTASSIUM 3.1 mmol/L (3.5-5.1); SODIUM 140 mmol/L (136-145)
[2019-10-09 06:59] LABS: ALKALINE PHOSPHATASE 92 U/L (45-117); CREATININE 0.53 mg/dL (0.55-1.02); SGOT/AST 46 IU/L (3-35); SGPT/ALT 86 U/L (12-78); TOTAL PROTEIN 6.7 gm/dL (6.4-8.2)
[2019-10-09 08:00] VITALS: BP 125/73
[2019-10-09 12:00] VITALS: BP 115/76
== END 2019-10-09 15:40 | disposition home or self-care (01) | DRG 247 ==
LOC: ED 11:15 → 4E 15:01 → EDHOLD 15:01 → 4E 21:43
PROVIDERS: Emergency Medicine; Hospitalist; ADMIT Internal Medicine
PROC: 0D9670Z Drainage of Stomach with Drainage Device, Via Natural or Artificial Opening (ICD-10-PCS; principal; 2019-10-07)
DX: K56.51 Intestinal adhesions [bands], with partial obstruction (principal); K21.9 Gastro-esophageal reflux disease without esophagitis; E11.65 Type 2 diabetes mellitus with hyperglycemia; E55.9 Vitamin D deficiency, unspecified; F32.9 Major depressive disorder, single episode, unspecified; J44.9 Chronic obstructive pulmonary disease, unspecified; D50.9 Iron deficiency anemia, unspecified; G47.33 Obstructive sleep apnea (adult) (pediatric); R65.10 Systemic inflammatory response syndrome (SIRS) of non-infectious origin without acute organ dysfunction; E87.8 Other disorders of electrolyte and fluid balance, not elsewhere classified; E78.5 Hyperlipidemia, unspecified; K58.0 Irritable bowel syndrome with diarrhea; E11.42 Type 2 diabetes mellitus with diabetic polyneuropathy; F41.9 Anxiety disorder, unspecified; I11.0 Hypertensive heart disease with heart failure; I50.32 Chronic diastolic (congestive) heart failure; R74.0 Nonspecific elevation of levels of transaminase and lactic acid dehydrogenase [LDH]; Z82.49 Family history of ischemic heart disease and other diseases of the circulatory system; Z88.1 Allergy status to other antibiotic agents; Z88.5 Allergy status to narcotic agent; Z88.6 Allergy status to analgesic agent; Z79.899 Other long term (current) drug therapy; Z90.49 Acquired absence of other specified parts of digestive tract

== ENCOUNTER → 2019-10-07 | Outpatient (CLI) | payer OTHER ==
[~2019-10-07] MED LIST changes: +ESCITALOPRAM OXA5 MG PO; +HYDROXYZINE HCL25 MG PO; +LIPITOR80 MG PO; +NEURONTIN600 MG PO; +PROPRANOLOL HCL40 M1 PO; +VRAYLAR1.5 MG PO
[2019-10-07 09:49] LABS: CLARITY CLEAR (CLEAR); COLOR YELLOW (YELLOW)
[2019-10-07 09:50] LABS: BILIRUBIN NEGATIVE (NEGATIVE); BLOOD 1+ (NEGATIVE); EPITHELIAL CELLS 31-40; GLUCOSE 2+ (NEGATIVE); KETONE NEGATIVE (NEGATIVE); LEUKO ESTERASE 1+ (NEGATIVE); NITRITE NEGATIVE (NEGATIVE); PH 6.5 (5.0-9.0); SPECIFIC GRAVITY 1.015 (1.005-1.030); UROBILINOGEN < 0.2 E.U./dl (0.2-1.0); WBC 16-20 wbc/hpf (0-5); YEAST 2+
[2019-10-07 09:51] LABS: ALBUMIN 3.7 gm/dl (3.1-4.5); BILIRUBIN, DIRECT 0.2 mg/dL (0.0-0.2); BUN 8 mg/dl (7-24); CHLORIDE 106 mmol/L (98-107); CHOLESTEROL 141 mg/dL (<200); POTASSIUM 3.8 mmol/L (3.5-5.1); SGOT/AST 47 IU/L (3-35); SGPT/ALT 70 U/L (12-78); SODIUM 139 mmol/L (136-145)
[2019-10-07 09:52] LABS: ALKALINE PHOSPHATASE 92 U/L (45-117); HDL CHOLESTEROL 33 mg/dl (40-60); TOTAL PROTEIN 7.3 gm/dL (6.4-8.2); TRIGLYCERIDES 670 mg/dl (<150)
[2019-10-07 10:41] LABS: VITAMIN D, 25-HYDROXY 30.7 ng/mL (30-100)
== END ==
LOC: LAB 00:56
PROVIDERS: Internal Medicine
DX: E11.65 Type 2 diabetes mellitus with hyperglycemia (principal); E11.40 Type 2 diabetes mellitus with diabetic neuropathy, unspecified; E78.5 Hyperlipidemia, unspecified; E53.8 Deficiency of other specified B group vitamins; E55.9 Vitamin D deficiency, unspecified

== ENCOUNTER → 2019-11-17 | Outpatient (CLI) | payer OTHER ==
[~2019-11-17] MED LIST changes: +ESCITALOPRAM OXA5 MG PO; +HYDROXYZINE HCL25 MG PO; +LIPITOR80 MG PO; +NEURONTIN600 MG PO; +PROPRANOLOL HCL40 M1 PO; +VRAYLAR1.5 MG PO
== END | disposition home or self-care (01) ==
LOC: MAMMO 11-13 09:30 → US 11-13 14:30 → MAMMO 01:07
PROVIDERS: ATTEND Nurse Practitioner Women's Health
DX: Z12.31 Encounter for screening mammogram for malignant neoplasm of breast (principal); R10.84 Generalized abdominal pain

== ENCOUNTER → 2020-01-14 | Outpatient (CLI) | payer OTHER ==
[~2020-01-14] MED LIST changes: +CIPRO500 MG PO; +GLIPIZIDE5 MG PO; +TRAZODONE100 MG PO
== END | disposition home or self-care (01) ==
LOC: CT 01-07 10:00
PROVIDERS: ATTEND Internal Medicine Gastroenterology
DX: K76.0 Fatty (change of) liver, not elsewhere classified (principal)

== ENCOUNTER 2020-02-02 14:34 | Emergency (ER) | payer OTHER ==
[~2020-02-02] VITALS: Wt 68.0 kg
[~2020-02-02 14:34] MED LIST changes: -CIPRO500 MG PO; -GLIPIZIDE5 MG PO; -TRAZODONE100 MG PO
[2020-02-02 14:56] VITALS: BP 134/79
[2020-02-02 16:26] LABS: BASO % 0.3 % (0.0-1.0); HEMATOCRIT 39.6 % (37.0-47.0); LYMPH # 2.8 10*3/uL (1.3-4.4); LYMPH % 27.5 % (27.0-41.0); MEAN CORPUSCULAR HGB 29.3 pg (27.0-31.0); MEAN CORPUSCULAR HGB CONC 33.3 g/dl (33.0-37.0); MONO # 0.6 10*3/uL (0.1-1.0); MONO % 5.9 % (3.0-9.0); NEUT # 6.7 10*3/uL (2.3-7.9); NEUT % 65.6 % (47.0-73.0); PLATELET COUNT AUTOMATED 285 10*3/uL (130-400); RED CELL DISTRI WIDTH 13.8 % (0-14.5); WHITE BLOOD COUNT 10.1 10*3/uL (4.8-10.8)
[2020-02-02 16:40] LABS: ALBUMIN 3.7 gm/dl (3.1-4.5); ALKALINE PHOSPHATASE 89 U/L (45-117); BUN 14 mg/dl (7-24); CHLORIDE 101 mmol/L (98-107); CREATININE 0.79 mg/dL (0.55-1.02); SGOT/AST 83 IU/L (3-35); SGPT/ALT 106 U/L (12-78); SODIUM 138 mmol/L (136-145); TOTAL PROTEIN 7.9 gm/dL (6.4-8.2)
[2020-02-02 16:46] LABS: TROPONIN I < 0.015 ng/ml (<0.045)
== END 2020-02-02 18:04 | disposition home or self-care (01) ==
LOC: ED 14:34
PROVIDERS: Physician Assistant
DX: R05 Cough (principal); R07.9 Chest pain, unspecified; M79.10 Myalgia, unspecified site; Z20.828 Contact with and (suspected) exposure to other viral communicable diseases; Z88.8 Allergy status to other drugs, medicaments and biological substances; Z88.6 Allergy status to analgesic agent; Z79.899 Other long term (current) drug therapy

== ENCOUNTER 2020-02-18 18:48 | Emergency (ER) | payer OTHER ==
[~2020-02-18] VITALS: Ht 157.4 cm; Wt 66.7 kg
[2020-02-18 19:42] LABS: BASO % 0.2 % (0.0-1.0); HEMATOCRIT 41.9 % (37.0-47.0); LYMPH # 2.5 10*3/uL (1.3-4.4); LYMPH % 11.3 % (27.0-41.0); MEAN CELL VOLUME 91.5 fl (81.0-99.0); MEAN CORPUSCULAR HGB 29.9 pg (27.0-31.0); MEAN CORPUSCULAR HGB CONC 32.7 g/dl (33.0-37.0); MEAN PLATELET VOLUME 11.8 fl (9.6-12.3); MONO # 0.8 10*3/uL (0.1-1.0); MONO % 3.6 % (3.0-9.0); NEUT # 18.2 10*3/uL (2.3-7.9); NEUT % 83.9 % (47.0-73.0); PLATELET COUNT AUTOMATED 500 10*3/uL (130-400); RED BLOOD COUNT 4.58 10*6/uL (4.10-5.10); WHITE BLOOD COUNT 21.7 10*3/uL (4.8-10.8)
[2020-02-18 19:55] LABS: BILIRUBIN Negative (Negative); BLOOD Negative (Negative); CLARITY Clear (Clear); COLOR Yellow (Yellow); GLUCOSE 3+ (Negative); KETONE 1+ (Negative); LEUKO ESTERASE Negative (Negative); NITRITE Negative (Negative); SPECIFIC GRAVITY 1.025 (1.001-1.030); UROBILINOGEN 0.2 E.U./dl (0.0-1.0)
[2020-02-18 20:08] LABS: BACTERIA 1+; WBC 0-2 wbc/hpf (0-5)
[2020-02-18 20:10] LABS: ALBUMIN 4.3 gm/dl (3.1-4.5); ALKALINE PHOSPHATASE 112 U/L (45-117); BUN 19 mg/dl (7-24); CHLORIDE 94 mmol/L (98-107); CREATININE 1.26 mg/dL (0.55-1.02); POTASSIUM 4.4 mmol/L (3.5-5.1); SGOT/AST 55 IU/L (3-35); SGPT/ALT 85 U/L (12-78); SODIUM 129 mmol/L (136-145); TOTAL PROTEIN 8.8 gm/dL (6.4-8.2)
[2020-02-18 20:13] LABS: TROPONIN I < 0.015 ng/ml (<0.045)
[2020-02-19 00:58] LABS: ALBUMIN 3.5 gm/dl (3.1-4.5); ALKALINE PHOSPHATASE 83 U/L (45-117); BUN 13 mg/dl (7-24); CREATININE 0.66 mg/dL (0.55-1.02); SGOT/AST 31 IU/L (3-35); SGPT/ALT 59 U/L (12-78); TOTAL PROTEIN 6.8 gm/dL (6.4-8.2)
[2020-02-19 01:03] VITALS: BP 132/62
[2020-02-19 01:03] LABS: TROPONIN I < 0.015 ng/ml (<0.045)
[2020-02-19] MEDS ORDERED: ZITHROMAX250 MG PO (01:06)
[2020-02-19 01:13] LABS: CHLORIDE 104 mmol/L (98-107); POTASSIUM 3.8 mmol/L (3.5-5.1); SODIUM 140 mmol/L (136-145)
[2020-02-19 01:21] LABS: ABG BASE EXCESS -0.6 mmol/L (-2.0-2.0); ARTERIAL BLOOD GAS PH 7.458 (7.35-7.45)
== END 2020-02-19 02:12 | disposition home or self-care (01) ==
LOC: ED 18:48
PROVIDERS: Nurse Practitioner Family
DX: U07.1 COVID-19 (principal); J12.89 Other viral pneumonia; E11.10 Type 2 diabetes mellitus with ketoacidosis without coma; Z88.8 Allergy status to other drugs, medicaments and biological substances; Z88.6 Allergy status to analgesic agent; Z79.899 Other long term (current) drug therapy

== ENCOUNTER 2020-02-22 15:51 | Inpatient (IN) | payer OTHER ==
[~2020-02-22] VITALS: Ht 157.4 cm; Wt 51.7 kg
[2020-02-22 15:58] VITALS: BP 122/67
[2020-02-22 16:22] VITALS: BP 127/79
[2020-02-22 16:33] LABS: BASO # 0.1 10*3/uL (0.0-0.1); BASO % 0.4 % (0.0-1.0); EOS % 0.1 % (1.0-4.0); HEMATOCRIT 41.1 % (37.0-47.0); LYMPH # 2.7 10*3/uL (1.3-4.4); LYMPH % 17.5 % (27.0-41.0); MEAN CELL VOLUME 90.9 fl (81.0-99.0); MEAN CORPUSCULAR HGB 29.6 pg (27.0-31.0); MEAN CORPUSCULAR HGB CONC 32.6 g/dl (33.0-37.0); MEAN PLATELET VOLUME 11.4 fl (9.6-12.3); MONO # 0.3 10*3/uL (0.1-1.0); MONO % 1.8 % (3.0-9.0); NEUT # 12.1 10*3/uL (2.3-7.9); NEUT % 78.8 % (47.0-73.0); PLATELET COUNT AUTOMATED 384 10*3/uL (130-400); RED BLOOD COUNT 4.52 10*6/uL (4.10-5.10); WHITE BLOOD COUNT 15.3 10*3/uL (4.8-10.8)
[2020-02-22 16:44] LABS: ACT PARTIAL THROMBO TIME 22.5 SECONDS (20.0-32.1); INTERNATIONAL NORM RATIO 0.9 (2.0-3.5)
[2020-02-22 16:47] LABS: ALKALINE PHOSPHATASE 103 U/L (45-117); BUN 17 mg/dl (7-24); CHLORIDE 95 mmol/L (98-107); CREATININE 1.19 mg/dL (0.55-1.02); LIPASE 251 U/L (73-393); POTASSIUM 4.2 mmol/L (3.5-5.1); SGOT/AST 37 IU/L (3-35); SGPT/ALT 77 U/L (12-78); SODIUM 127 mmol/L (136-145)
[2020-02-22 16:48] LABS: BETA-HCG, QUANT < 1.0 mIU/mL (1-3); TROPONIN I < 0.015 ng/ml (<0.045)
[2020-02-22 17:29] LABS: BILIRUBIN Negative (Negative); BLOOD Negative (Negative); CLARITY Clear (Clear); COLOR Yellow (Yellow); GLUCOSE 3+ (Negative); KETONE Trace (Negative); LEUKO ESTERASE Negative (Negative); NITRITE Positive (Negative); SPECIFIC GRAVITY >= 1.030 (1.001-1.030); UROBILINOGEN 0.2 E.U./dl (0.0-1.0)
[2020-02-22 17:35] LABS: BACTERIA 2+; RBC 0-2 rbc/hpf (0-2)
[2020-02-22] MEDS ORDERED: TRAZODONE100 MG PO (19:02)
[2020-02-22] MEDS ORDERED: IMODIUM A-D2 M2 PO (19:14)
[2020-02-22 19:32] VITALS: BP 133/77
[2020-02-22 20:34] LABS: BUN 12 mg/dl (7-24); CHLORIDE 103 mmol/L (98-107); SODIUM 134 mmol/L (136-145)
[2020-02-22 22:47] VITALS: BP 127/77
[2020-02-22 23:51] VITALS: BP 117/84
[2020-02-22 23:55] LABS: BUN 13 mg/dl (7-24); CHLORIDE 100 mmol/L (98-107); CREATININE 0.88 mg/dL (0.55-1.02); SODIUM 133 mmol/L (136-145)
[2020-02-23 01:36] VITALS: BP 129/75
[2020-02-23 02:23] LABS: BUN 14 mg/dl (7-24); CHLORIDE 101 mmol/L (98-107); CREATININE 0.86 mg/dL (0.55-1.02); SODIUM 134 mmol/L (136-145)
[2020-02-23 04:14] VITALS: BP 119/69
[2020-02-23 06:12] LABS: ALBUMIN 3.7 gm/dl (3.1-4.5); BUN 13 mg/dl (7-24); CHLORIDE 101 mmol/L (98-107); POTASSIUM 3.7 mmol/L (3.5-5.1); SODIUM 134 mmol/L (136-145)
[2020-02-23 06:13] LABS: HEMATOCRIT 37.7 % (37.0-47.0); MEAN CELL VOLUME 90.8 fl (81.0-99.0); MEAN CORPUSCULAR HGB 29.6 pg (27.0-31.0); MEAN CORPUSCULAR HGB CONC 32.6 g/dl (33.0-37.0); MEAN PLATELET VOLUME 11.8 fl (9.6-12.3); PLATELET COUNT AUTOMATED 363 10*3/uL (130-400); RED BLOOD COUNT 4.15 10*6/uL (4.10-5.10); RED CELL DISTRI WIDTH 14.3 % (0-14.5); WHITE BLOOD COUNT 17.3 10*3/uL (4.8-10.8)
[2020-02-23 06:20] LABS: ALKALINE PHOSPHATASE 82 U/L (45-117); CHOLESTEROL 166 mg/dL (<200); CREATININE 0.73 mg/dL (0.55-1.02); FREE T4 0.97 ng/dl (0.76-1.46); HDL CHOLESTEROL 38 mg/dl (40-60); SGOT/AST 29 IU/L (3-35); SGPT/ALT 59 U/L (12-78); TOTAL PROTEIN 7.3 gm/dL (6.4-8.2); TRIGLYCERIDES 744 mg/dl (<150)
[2020-02-23 06:44] LABS: INTERNATIONAL NORM RATIO 0.9 (2.0-3.5)
[2020-02-23 06:47] LABS: PLATELET SUFFICIENCY NORMAL (NORMAL); TOTAL CELLS COUNTED 100 #CELLS
[2020-02-23 07:31] LABS: VITAMIN D, 25-HYDROXY 34.4 ng/mL (30-100)
[2020-02-23] MEDS ORDERED: GLIPIZIDE5 MG PO (10:01)
[2020-02-23] MEDS ORDERED: CIPRO500 MG PO (10:01)
== END 2020-02-23 11:14 | disposition home or self-care (01) | DRG 720 ==
LOC: ED 15:51 → EDHOLD 18:09
PROVIDERS: Emergency Medicine; Hospitalist; ADMIT Internal Medicine; ATTEND Internal Medicine
DX: A41.9 Sepsis, unspecified organism (principal); N30.00 Acute cystitis without hematuria; R65.20 Severe sepsis without septic shock; E87.1 Hypo-osmolality and hyponatremia; E11.65 Type 2 diabetes mellitus with hyperglycemia; K21.9 Gastro-esophageal reflux disease without esophagitis; E55.9 Vitamin D deficiency, unspecified; F33.9 Major depressive disorder, recurrent, unspecified; J44.9 Chronic obstructive pulmonary disease, unspecified; F41.9 Anxiety disorder, unspecified; E78.5 Hyperlipidemia, unspecified; I11.0 Hypertensive heart disease with heart failure; I50.32 Chronic diastolic (congestive) heart failure; M54.30 Sciatica, unspecified side; G47.33 Obstructive sleep apnea (adult) (pediatric); Z86.16 Personal history of COVID-19; E11.40 Type 2 diabetes mellitus with diabetic neuropathy, unspecified; Z88.8 Allergy status to other drugs, medicaments and biological substances; Z88.6 Allergy status to analgesic agent; Z90.49 Acquired absence of other specified parts of digestive tract; Z82.49 Family history of ischemic heart disease and other diseases of the circulatory system; Z79.899 Other long term (current) drug therapy; N17.0 Acute kidney failure with tubular necrosis

== ENCOUNTER 2020-03-04 12:04 | Emergency (ER) | payer OTHER ==
[~2020-03-04] VITALS: Ht 157.4 cm; Wt 66.7 kg
[~2020-03-04 12:04] MED LIST changes: +CIPRO500 MG PO; +GLIPIZIDE5 MG PO; +TRAZODONE100 MG PO
[2020-03-04 12:19] VITALS: BP 111/82
[2020-03-04 12:38] LABS: BASO # 0.1 10*3/uL (0.0-0.1); BASO % 0.9 % (0.0-1.0); EOS # 0.2 10*3/uL (0.0-0.4); EOS % 2.1 % (1.0-4.0); HEMATOCRIT 39.8 % (37.0-47.0); LYMPH # 3.7 10*3/uL (1.3-4.4); LYMPH % 34.8 % (27.0-41.0); MEAN CELL VOLUME 91.7 fl (81.0-99.0); MEAN CORPUSCULAR HGB CONC 32.7 g/dl (33.0-37.0); MEAN PLATELET VOLUME 10.9 fl (9.6-12.3); MONO # 0.6 10*3/uL (0.1-1.0); MONO % 5.6 % (3.0-9.0); NEUT % 55.8 % (47.0-73.0); PLATELET COUNT AUTOMATED 324 10*3/uL (130-400); RED BLOOD COUNT 4.34 10*6/uL (4.10-5.10); RED CELL DISTRI WIDTH 14.5 % (0-14.5); WHITE BLOOD COUNT 10.7 10*3/uL (4.8-10.8)
[2020-03-04 12:46] LABS: ACT PARTIAL THROMBO TIME 23.4 SECONDS (20.0-32.1); INTERNATIONAL NORM RATIO 0.9 (2.0-3.5)
[2020-03-04 12:53] LABS: ALBUMIN 4.1 gm/dl (3.1-4.5); BUN 13 mg/dl (7-24); CHLORIDE 101 mmol/L (98-107); CREATININE 0.79 mg/dL (0.55-1.02); POTASSIUM 3.8 mmol/L (3.5-5.1); SGOT/AST 55 IU/L (3-35); SGPT/ALT 70 U/L (12-78); SODIUM 133 mmol/L (136-145); TOTAL PROTEIN 7.7 gm/dL (6.4-8.2)
[2020-03-04 12:58] LABS: ALKALINE PHOSPHATASE 76 U/L (45-117)
[2020-03-04 13:44] LABS: BILIRUBIN Negative (Negative); BLOOD 3+ (Negative); CLARITY Clear (Clear); COLOR Orange (Yellow); GLUCOSE Trace (Negative); KETONE Negative (Negative); LEUKO ESTERASE Trace (Negative); NITRITE Negative (Negative); PH 5.5 (4.5-8.0); UROBILINOGEN 0.2 E.U./dl (0.0-1.0)
[2020-03-04 14:04] LABS: BACTERIA TRACE; RBC TNTC rbc/hpf (0-2)
== END 2020-03-04 13:54 | disposition home or self-care (01) ==
LOC: ED 12:04
PROVIDERS: Emergency Medicine
DX: N93.8 Other specified abnormal uterine and vaginal bleeding (principal); J44.9 Chronic obstructive pulmonary disease, unspecified; K21.9 Gastro-esophageal reflux disease without esophagitis; E11.9 Type 2 diabetes mellitus without complications; I11.0 Hypertensive heart disease with heart failure; I50.30 Unspecified diastolic (congestive) heart failure; F17.200 Nicotine dependence, unspecified, uncomplicated; Z88.8 Allergy status to other drugs, medicaments and biological substances; Z79.899 Other long term (current) drug therapy

== ENCOUNTER → 2020-03-30 | Outpatient (CLI) | payer OTHER ==
[2020-03-30 10:51] LABS: ALBUMIN 4.1 gm/dl (3.1-4.5); ALKALINE PHOSPHATASE 69 U/L (45-117); BILIRUBIN, DIRECT 0.2 mg/dL (0.0-0.2); BUN 12 mg/dl (7-24); CHLORIDE 105 mmol/L (98-107); CHOLESTEROL 148 mg/dL (<200); CREATININE 0.93 mg/dL (0.55-1.02); HDL CHOLESTEROL 30 mg/dl (40-60); IRON 107 ug/dL (50-170); POTASSIUM 3.9 mmol/L (3.5-5.1); SGOT/AST 38 IU/L (3-35); SGPT/ALT 56 U/L (12-78); SODIUM 137 mmol/L (136-145); TOTAL IRON BINDING CAPACITY 475 ug/dl (250-450); TOTAL PROTEIN 7.6 gm/dL (6.4-8.2); TRIGLYCERIDES 959 mg/dl (<150)
[2020-03-30 11:11] LABS: VITAMIN D, 25-HYDROXY 25.7 ng/mL (30-100)
== END | disposition home or self-care (01) ==
LOC: LAB 00:29
PROVIDERS: ATTEND Internal Medicine
DX: E11.65 Type 2 diabetes mellitus with hyperglycemia (principal); E11.40 Type 2 diabetes mellitus with diabetic neuropathy, unspecified; E78.5 Hyperlipidemia, unspecified; E61.1 Iron deficiency; E55.9 Vitamin D deficiency, unspecified; E53.8 Deficiency of other specified B group vitamins

== ENCOUNTER 2020-04-19 16:52 | Emergency (ER) | payer OTHER ==
[~2020-04-19] VITALS: Ht 157.4 cm; Wt 68.9 kg
[2020-04-19 16:58] VITALS: BP 152/87
[2020-04-19 17:46] LABS: BASO # 0.1 10*3/uL (0.0-0.1); BASO % 0.6 % (0.0-1.0); EOS # 0.1 10*3/uL (0.0-0.4); EOS % 0.6 % (1.0-4.0); HEMATOCRIT 41.7 % (37.0-47.0); LYMPH # 4.5 10*3/uL (1.3-4.4); LYMPH % 38.7 % (27.0-41.0); MEAN CELL VOLUME 90.8 fl (81.0-99.0); MEAN CORPUSCULAR HGB 30.7 pg (27.0-31.0); MEAN CORPUSCULAR HGB CONC 33.8 g/dl (33.0-37.0); MEAN PLATELET VOLUME 10.4 fl (9.6-12.3); MONO # 0.6 10*3/uL (0.1-1.0); MONO % 5.2 % (3.0-9.0); NEUT # 6.3 10*3/uL (2.3-7.9); NEUT % 54.2 % (47.0-73.0); PLATELET COUNT AUTOMATED 362 10*3/uL (130-400); RED BLOOD COUNT 4.59 10*6/uL (4.10-5.10); RED CELL DISTRI WIDTH 13.2 % (0-14.5); WHITE BLOOD COUNT 11.6 10*3/uL (4.8-10.8)
[2020-04-19 17:55] LABS: INTERNATIONAL NORM RATIO 0.9 (2.0-3.5)
[2020-04-19 18:02] LABS: ALBUMIN 4.4 gm/dl (3.1-4.5); ALKALINE PHOSPHATASE 58 U/L (45-117); BUN 19 mg/dl (7-24); CHLORIDE 99 mmol/L (98-107); CREATININE 0.94 mg/dL (0.55-1.02); POTASSIUM 3.5 mmol/L (3.5-5.1); SGOT/AST 25 IU/L (3-35); SGPT/ALT 48 U/L (12-78); SODIUM 135 mmol/L (136-145)
[2020-04-19 18:06] LABS: TROPONIN I < 0.015 ng/ml (<0.045)
== END 2020-04-19 20:30 | disposition home or self-care (01) ==
LOC: ED 16:52
PROVIDERS: Physician Assistant
DX: E11.65 Type 2 diabetes mellitus with hyperglycemia (principal); I10 Essential (primary) hypertension; J44.9 Chronic obstructive pulmonary disease, unspecified; F31.9 Bipolar disorder, unspecified; G43.909 Migraine, unspecified, not intractable, without status migrainosus; E78.00 Pure hypercholesterolemia, unspecified; Z88.8 Allergy status to other drugs, medicaments and biological substances; Z79.899 Other long term (current) drug therapy; Z79.2 Long term (current) use of antibiotics; Z90.49 Acquired absence of other specified parts of digestive tract; Z98.890 Other specified postprocedural states

== ENCOUNTER → 2020-04-27 | Outpatient (CLI) | payer OTHER | END | disposition home or self-care (01) | LOC: D 10:17 | PROVIDERS: ATTEND Internal Medicine | DX: E11.65 Type 2 diabetes mellitus with hyperglycemia (principal) ==

== ENCOUNTER → 2020-04-30 | Outpatient (CLI) | payer OTHER | END | disposition home or self-care (01) | LOC: US 04-26 15:00 | PROVIDERS: ATTEND Nurse Practitioner Women's Health | DX: N85.9 Noninflammatory disorder of uterus, unspecified (principal) ==

== ENCOUNTER → 2020-07-27 | Outpatient (CLI) | payer OTHER ==
[2020-07-27 08:49] LABS: ALBUMIN 3.9 gm/dl (3.1-4.5); ALKALINE PHOSPHATASE 64 U/L (45-117); BILIRUBIN, DIRECT 0.2 mg/dL (0.0-0.2); BUN 12 mg/dl (7-24); CHLORIDE 103 mmol/L (98-107); CHOLESTEROL 166 mg/dL (<200); CREATININE 0.65 mg/dL (0.55-1.02); IRON 93 ug/dL (50-170); POTASSIUM 3.7 mmol/L (3.5-5.1); SGOT/AST 19 IU/L (3-35); SGPT/ALT 40 U/L (12-78); SODIUM 139 mmol/L (136-145); TOTAL IRON BINDING CAPACITY 455 ug/dl (250-450); TOTAL PROTEIN 7.2 gm/dL (6.4-8.2); TRIGLYCERIDES 662 mg/dl (<150)
[2020-07-27 08:56] LABS: VITAMIN D, 25-HYDROXY 49.2 ng/mL (30-100)
== END | disposition home or self-care (01) ==
LOC: LAB 07:35
PROVIDERS: ATTEND Internal Medicine
DX: E11.65 Type 2 diabetes mellitus with hyperglycemia (principal); E61.1 Iron deficiency; E78.5 Hyperlipidemia, unspecified; E55.9 Vitamin D deficiency, unspecified; E11.40 Type 2 diabetes mellitus with diabetic neuropathy, unspecified

== ENCOUNTER → 2020-08-06 | Outpatient (CLI) | payer OTHER | END | disposition home or self-care (01) | LOC: US 00:39 | PROVIDERS: ATTEND Nurse Practitioner Women's Health | DX: N83.201 Unspecified ovarian cyst, right side (principal) ==

== ENCOUNTER 2020-08-29 07:43 | Emergency (ER) | payer OTHER ==
[~2020-08-29] VITALS: Ht 157.4 cm; Wt 68.0 kg
[2020-08-29 07:49] VITALS: BP 147/82
[2020-08-29 08:34] LABS: BUN 6 mg/dl (7-24); CHLORIDE 103 mmol/L (98-107); CREATININE 0.76 mg/dL (0.55-1.02); POTASSIUM 3.4 mmol/L (3.5-5.1); SODIUM 133 mmol/L (136-145)
[2020-08-29 08:38] LABS: B-hCG (QUALITATIVE) NEGATIVE (NEGATIVE)
[2020-08-29 09:18] LABS: BILIRUBIN Negative (Negative); BLOOD Negative (Negative); CLARITY Clear (Clear); COLOR Yellow (Yellow); GLUCOSE 1+ (Negative); KETONE Trace (Negative); LEUKO ESTERASE Trace (Negative); NITRITE Negative (Negative); SPECIFIC GRAVITY 1.025 (1.001-1.030)
[2020-08-29 09:43] LABS: RBC 0-2 rbc/hpf (0-2)
[2020-08-29 09:47] LABS: BACTERIA 1+; MUCOUS 1+
== END 2020-08-29 09:10 | disposition home or self-care (01) ==
LOC: ED 07:43
PROVIDERS: Emergency Medicine
DX: B34.9 Viral infection, unspecified (principal); R11.2 Nausea with vomiting, unspecified; J02.9 Acute pharyngitis, unspecified; E11.40 Type 2 diabetes mellitus with diabetic neuropathy, unspecified; F41.9 Anxiety disorder, unspecified; J44.9 Chronic obstructive pulmonary disease, unspecified; I11.0 Hypertensive heart disease with heart failure; I50.30 Unspecified diastolic (congestive) heart failure; E78.5 Hyperlipidemia, unspecified; K21.9 Gastro-esophageal reflux disease without esophagitis; Z88.8 Allergy status to other drugs, medicaments and biological substances; Z88.1 Allergy status to other antibiotic agents; Z88.6 Allergy status to analgesic agent; Z79.2 Long term (current) use of antibiotics; Z79.899 Other long term (current) drug therapy; Z90.49 Acquired absence of other specified parts of digestive tract; Z98.890 Other specified postprocedural states

== ENCOUNTER 2020-09-07 12:09 | Emergency (ER) | payer OTHER ==
[~2020-09-07] VITALS: Wt 68.0 kg
[2020-09-07 12:35] VITALS: BP 121/77
[2020-09-07 14:57] LABS: BASO # 0.1 10*3/uL (0.0-0.1); BASO % 0.8 % (0.0-1.0); EOS # 0.3 10*3/uL (0.0-0.4); EOS % 2.9 % (1.0-4.0); HEMATOCRIT 39.3 % (37.0-47.0); LYMPH # 4.2 10*3/uL (1.3-4.4); LYMPH % 39.8 % (27.0-41.0); MEAN CELL VOLUME 91.2 fl (81.0-99.0); MEAN CORPUSCULAR HGB 31.1 pg (27.0-31.0); MEAN CORPUSCULAR HGB CONC 34.1 g/dl (33.0-37.0); MEAN PLATELET VOLUME 11.3 fl (9.6-12.3); MONO # 0.7 10*3/uL (0.1-1.0); MONO % 6.4 % (3.0-9.0); NEUT # 5.3 10*3/uL (2.3-7.9); NEUT % 49.6 % (47.0-73.0); PLATELET COUNT AUTOMATED 318 10*3/uL (130-400); RED BLOOD COUNT 4.31 10*6/uL (4.10-5.10); RED CELL DISTRI WIDTH 12.8 % (0-14.5); WHITE BLOOD COUNT 10.6 10*3/uL (4.8-10.8)
[2020-09-07 15:11] LABS: BILIRUBIN Negative (Negative); BLOOD Negative (Negative); CLARITY Clear (Clear); COLOR Yellow (Yellow); GLUCOSE 2+ (Negative); KETONE Negative (Negative); LEUKO ESTERASE Trace (Negative); NITRITE Negative (Negative); UROBILINOGEN 0.2 E.U./dl (0.0-1.0)
[2020-09-07 15:15] LABS: ALBUMIN 4.1 gm/dl (3.1-4.5); ALKALINE PHOSPHATASE 80 U/L (45-117); BUN 9 mg/dl (7-24); CHLORIDE 104 mmol/L (98-107); LIPASE 129 U/L (73-393); POTASSIUM 3.2 mmol/L (3.5-5.1); SGOT/AST 41 IU/L (3-35); SGPT/ALT 56 U/L (12-78); SODIUM 135 mmol/L (136-145); TOTAL PROTEIN 7.6 gm/dL (6.4-8.2)
[2020-09-07 15:24] LABS: TROPONIN I < 0.015 ng/ml (<0.045)
[2020-09-07 15:42] LABS: BACTERIA TRACE; YEAST 1+
== END 2020-09-07 16:30 | disposition home or self-care (01) ==
LOC: ED 12:09
PROVIDERS: Physician Assistant
DX: R73.9 Hyperglycemia, unspecified (principal); R42 Dizziness and giddiness; Z90.49 Acquired absence of other specified parts of digestive tract; Z98.890 Other specified postprocedural states; Z79.899 Other long term (current) drug therapy; Z88.1 Allergy status to other antibiotic agents; Z88.5 Allergy status to narcotic agent

== ENCOUNTER 2020-09-16 11:50 | Emergency (ER) | payer OTHER ==
[~2020-09-16] VITALS: Ht 162.5 cm; Wt 68.5 kg
[2020-09-16 11:55] VITALS: BP 137/75
[2020-09-16 12:27] LABS: BASO # 0.1 10*3/uL (0.0-0.1); BASO % 0.8 % (0.0-1.0); EOS # 0.3 10*3/uL (0.0-0.4); EOS % 3.4 % (1.0-4.0); HEMATOCRIT 37.2 % (37.0-47.0); LYMPH # 3.3 10*3/uL (1.3-4.4); MEAN CELL VOLUME 92.8 fl (81.0-99.0); MEAN CORPUSCULAR HGB 32.7 pg (27.0-31.0); MEAN CORPUSCULAR HGB CONC 35.2 g/dl (33.0-37.0); MEAN PLATELET VOLUME 11.6 fl (9.6-12.3); MONO # 0.6 10*3/uL (0.1-1.0); MONO % 6.2 % (3.0-9.0); NEUT # 5.3 10*3/uL (2.3-7.9); NEUT % 54.9 % (47.0-73.0); PLATELET COUNT AUTOMATED 309 10*3/uL (130-400); RED BLOOD COUNT 4.01 10*6/uL (4.10-5.10); RED CELL DISTRI WIDTH 12.8 % (0-14.5); WHITE BLOOD COUNT 9.7 10*3/uL (4.8-10.8)
[2020-09-16 12:56] LABS: ALKALINE PHOSPHATASE 99 U/L (45-117); BUN 14 mg/dl (7-24); CHLORIDE 102 mmol/L (98-107); CREATININE 0.76 mg/dL (0.55-1.02); POTASSIUM 4.2 mmol/L (3.5-5.1); SGPT/ALT 66 U/L (12-78); SODIUM 132 mmol/L (136-145); TOTAL PROTEIN 7.3 gm/dL (6.4-8.2)
[2020-09-16 13:00] LABS: SGOT/AST 61 IU/L (3-35)
== END 2020-09-16 13:59 | disposition home or self-care (01) ==
LOC: ED 11:50
PROVIDERS: Physician Assistant
DX: R73.9 Hyperglycemia, unspecified (principal); Z90.49 Acquired absence of other specified parts of digestive tract; Z79.899 Other long term (current) drug therapy; Z88.6 Allergy status to analgesic agent; Z88.8 Allergy status to other drugs, medicaments and biological substances; Z88.5 Allergy status to narcotic agent

== ENCOUNTER → 2020-09-16 | Outpatient (CLI) | payer OTHER ==
[2020-09-16 08:53] LABS: CHOLESTEROL 189 mg/dL (<200); TRIGLYCERIDES 738 mg/dl (<150)
[2020-09-16 09:16] LABS: VITAMIN D, 25-HYDROXY 20.1 ng/mL (30-100)
[2020-09-16 09:30] LABS: ALKALINE PHOSPHATASE 103 U/L (45-117); BUN 14 mg/dl (7-24); CHLORIDE 102 mmol/L (98-107); CREATININE 0.75 mg/dL (0.55-1.02); IRON 105 ug/dL (50-170); POTASSIUM 4.4 mmol/L (3.5-5.1); SGOT/AST 66 IU/L (3-35); SGPT/ALT 68 U/L (12-78); SODIUM 131 mmol/L (136-145); TOTAL IRON BINDING CAPACITY 465 ug/dl (250-450); TOTAL PROTEIN 7.6 gm/dL (6.4-8.2)
== END | disposition home or self-care (01) ==
LOC: LAB 00:32
PROVIDERS: ATTEND Internal Medicine
DX: E11.40 Type 2 diabetes mellitus with diabetic neuropathy, unspecified (principal); E11.65 Type 2 diabetes mellitus with hyperglycemia; E78.5 Hyperlipidemia, unspecified; E61.1 Iron deficiency; E55.9 Vitamin D deficiency, unspecified

== ENCOUNTER 2020-09-22 15:08 | Emergency (ER) | payer OTHER ==
[~2020-09-22] VITALS: Ht 157.4 cm; Wt 68.0 kg
[2020-09-22 15:45] VITALS: BP 166/96
[2020-09-22 17:58] LABS: BASO # 0.1 10*3/uL (0.0-0.1); BASO % 0.7 % (0.0-1.0); EOS # 0.2 10*3/uL (0.0-0.4); EOS % 2.5 % (1.0-4.0); HEMATOCRIT 37.8 % (37.0-47.0); LYMPH # 3.3 10*3/uL (1.3-4.4); LYMPH % 39.3 % (27.0-41.0); MEAN CELL VOLUME 92.6 fl (81.0-99.0); MEAN CORPUSCULAR HGB 30.9 pg (27.0-31.0); MEAN CORPUSCULAR HGB CONC 33.3 g/dl (33.0-37.0); MEAN PLATELET VOLUME 11.4 fl (9.6-12.3); MONO # 0.5 10*3/uL (0.1-1.0); MONO % 6.5 % (3.0-9.0); NEUT # 4.2 10*3/uL (2.3-7.9); NEUT % 50.4 % (47.0-73.0); PLATELET COUNT AUTOMATED 291 10*3/uL (130-400); RED BLOOD COUNT 4.08 10*6/uL (4.10-5.10); RED CELL DISTRI WIDTH 13.2 % (0-14.5); WHITE BLOOD COUNT 8.3 10*3/uL (4.8-10.8)
[2020-09-22 18:25] LABS: ALBUMIN 4.1 gm/dl (3.1-4.5); ALKALINE PHOSPHATASE 101 U/L (45-117); B-hCG (QUALITATIVE) NEGATIVE (NEGATIVE); BUN 7 mg/dl (7-24); CHLORIDE 103 mmol/L (98-107); LIPASE 131 U/L (73-393); SGOT/AST 93 IU/L (3-35); SGPT/ALT 95 U/L (12-78); SODIUM 137 mmol/L (136-145); TOTAL PROTEIN 7.4 gm/dL (6.4-8.2)
[2020-09-22 18:54] LABS: TROPONIN I < 0.015 ng/ml (<0.045)
== END 2020-09-22 19:12 | disposition home or self-care (01) ==
LOC: ED 15:08
PROVIDERS: Internal Medicine
DX: R00.0 Tachycardia, unspecified (principal); F17.200 Nicotine dependence, unspecified, uncomplicated; Z90.49 Acquired absence of other specified parts of digestive tract; Z98.890 Other specified postprocedural states; Z79.899 Other long term (current) drug therapy; Z88.8 Allergy status to other drugs, medicaments and biological substances; Z88.6 Allergy status to analgesic agent; Z88.5 Allergy status to narcotic agent

== ENCOUNTER → 2020-09-22 | Outpatient (CLI) | payer OTHER | END | disposition home or self-care (01) | LOC: CARD 01:53 | PROVIDERS: ATTEND Internal Medicine | DX: R00.0 Tachycardia, unspecified (principal) ==

== ENCOUNTER → 2020-10-01 | Outpatient (CLI) | payer OTHER ==
[2020-10-01 09:38] LABS: ALBUMIN 3.9 gm/dl (3.1-4.5); BUN 11 mg/dl (7-24); CHLORIDE 103 mmol/L (98-107); CREATININE 0.69 mg/dL (0.55-1.02); IRON 88 ug/dL (50-170); SGOT/AST 59 IU/L (3-35); SGPT/ALT 70 U/L (12-78); SODIUM 138 mmol/L (136-145); TOTAL IRON BINDING CAPACITY 396 ug/dl (250-450)
[2020-10-01 09:42] LABS: ALKALINE PHOSPHATASE 98 U/L (45-117); TOTAL PROTEIN 7.2 gm/dL (6.4-8.2)
[2020-10-02 05:06] LABS: HEP B CORE AB, IGM Negative (Negative); HEPATITIS B SURFACE AB Non Reactive (.); HEPATITIS B SURFACE AG Negative (Negative); HEPATITIS C VIRUS ANTIBODY <0.1 s/co (0.0-0.9)
== END | disposition home or self-care (01) ==
LOC: LAB 00:25
PROVIDERS: ATTEND Nurse Practitioner Family
DX: R16.0 Hepatomegaly, not elsewhere classified (principal)

== ENCOUNTER 2020-11-02 07:29 | Emergency (ER) | payer OTHER ==
[~2020-11-02] VITALS: Ht 157.4 cm; Wt 63.5 kg
[2020-11-02 07:36] VITALS: BP 137/71
[2020-11-02 08:25] LABS: ALBUMIN 3.9 gm/dl (3.1-4.5); ALKALINE PHOSPHATASE 80 U/L (45-117); BUN 6 mg/dl (7-24); CHLORIDE 104 mmol/L (98-107); CREATININE 0.61 mg/dL (0.55-1.02); POTASSIUM 3.7 mmol/L (3.5-5.1); SGOT/AST 31 IU/L (3-35); SGPT/ALT 46 U/L (12-78); SODIUM 137 mmol/L (136-145)
== END 2020-11-02 08:59 | disposition home or self-care (01) ==
LOC: ED 07:29
PROVIDERS: Emergency Medicine
DX: B34.9 Viral infection, unspecified (principal); Z20.822 Contact with and (suspected) exposure to COVID-19; J44.9 Chronic obstructive pulmonary disease, unspecified; K21.9 Gastro-esophageal reflux disease without esophagitis; I10 Essential (primary) hypertension; E11.9 Type 2 diabetes mellitus without complications; Z88.8 Allergy status to other drugs, medicaments and biological substances; Z79.899 Other long term (current) drug therapy

== ENCOUNTER → 2020-11-11 | Outpatient (CLI) | payer OTHER | END | disposition home or self-care (01) | LOC: RAD 00:19 | PROVIDERS: ATTEND Chiropractor | DX: M25.562 Pain in left knee (principal) ==

== ENCOUNTER → 2020-11-22 | Outpatient (CLI) | payer OTHER | END | disposition home or self-care (01) | LOC: US 00:40 | PROVIDERS: ATTEND Chiropractor | DX: M79.604 Pain in right leg (principal); M79.605 Pain in left leg; M25.562 Pain in left knee ==

== ENCOUNTER → 2020-12-13 | Outpatient (CLI) | payer OTHER ==
[2020-12-13 09:00] LABS: ALKALINE PHOSPHATASE 75 U/L (45-117); BUN 11 mg/dl (7-24); CHLORIDE 103 mmol/L (98-107); CHOLESTEROL 101 mg/dL (<200); CREATININE 0.77 mg/dL (0.55-1.02); IRON 103 ug/dL (50-170); POTASSIUM 4.3 mmol/L (3.5-5.1); SGOT/AST 48 IU/L (3-35); SGPT/ALT 65 U/L (12-78); SODIUM 135 mmol/L (136-145); TOTAL IRON BINDING CAPACITY 444 ug/dl (250-450); TOTAL PROTEIN 7.5 gm/dL (6.4-8.2); TRIGLYCERIDES 373 mg/dl (<150)
[2020-12-13 09:06] LABS: FREE T4 0.89 ng/dl (0.76-1.46)
[2020-12-13 09:28] LABS: VITAMIN D, 25-HYDROXY 52.6 ng/mL (30-100)
[2020-12-13 10:27] LABS: BILIRUBIN Negative (Negative); BLOOD Negative (Negative); CLARITY Clear (Clear); COLOR Yellow (Yellow); GLUCOSE Negative (Negative); KETONE Negative (Negative); LEUKO ESTERASE Negative (Negative); NITRITE Negative (Negative); PH 5.5 (4.5-8.0); SPECIFIC GRAVITY 1.015 (1.001-1.030); UROBILINOGEN 0.2 E.U./dl (0.0-1.0)
[2020-12-13 10:55] LABS: CALCIUM OXALATE CRYSTALS 1+
[2020-12-13 10:56] LABS: BACTERIA 3+
[2020-12-14 04:06] LABS: LDL CHOLESTEROL (DIRECT) 26 mg/dL (0-99)
== END | disposition home or self-care (01) ==
LOC: LAB 00:06
PROVIDERS: ATTEND Internal Medicine
DX: E11.65 Type 2 diabetes mellitus with hyperglycemia (principal); E78.5 Hyperlipidemia, unspecified; E61.1 Iron deficiency; E11.40 Type 2 diabetes mellitus with diabetic neuropathy, unspecified; E55.9 Vitamin D deficiency, unspecified; E34.9 Endocrine disorder, unspecified; E04.9 Nontoxic goiter, unspecified; R19.7 Diarrhea, unspecified

== ENCOUNTER → 2020-12-17 | Outpatient (CLI) | payer OTHER | END | disposition home or self-care (01) | LOC: US 00:15 | PROVIDERS: ATTEND Nurse Practitioner Women's Health | DX: N83.201 Unspecified ovarian cyst, right side (principal) ==

== ENCOUNTER → 2021-01-20 | Outpatient (CLI) | payer OTHER | END | disposition home or self-care (01) | LOC: US 00:43 | PROVIDERS: ATTEND Nurse Practitioner Women's Health | DX: N83.201 Unspecified ovarian cyst, right side (principal) ==

== ENCOUNTER 2021-03-18 11:55 | Emergency (ER) | payer OTHER ==
[~2021-03-18] VITALS: Ht 157.4 cm; Wt 64.0 kg
[2021-03-18 12:00] VITALS: BP 141/90
[2021-03-18 12:36] LABS: BASO # 0.1 10*3/uL (0.0-0.1); BASO % 0.9 % (0.0-1.0); EOS # 0.5 10*3/uL (0.0-0.4); HEMATOCRIT 43.3 % (37.0-47.0); LYMPH # 4.8 10*3/uL (1.3-4.4); LYMPH % 41.5 % (27.0-41.0); MEAN CELL VOLUME 90.4 fl (81.0-99.0); MEAN CORPUSCULAR HGB 30.7 pg (27.0-31.0); MEAN CORPUSCULAR HGB CONC 33.9 g/dl (33.0-37.0); MEAN PLATELET VOLUME 11.2 fl (9.6-12.3); MONO # 0.5 10*3/uL (0.1-1.0); MONO % 4.3 % (3.0-9.0); NEUT # 5.7 10*3/uL (2.3-7.9); PLATELET COUNT AUTOMATED 329 10*3/uL (130-400); RED BLOOD COUNT 4.79 10*6/uL (4.10-5.10); RED CELL DISTRI WIDTH 12.6 % (0-14.5); WHITE BLOOD COUNT 11.6 10*3/uL (4.8-10.8)
[2021-03-18 12:52] LABS: BILIRUBIN Negative (Negative); BLOOD Negative (Negative); CLARITY Clear (Clear); COLOR Yellow (Yellow); GLUCOSE Negative (Negative); KETONE Negative (Negative); LEUKO ESTERASE Negative (Negative); NITRITE Negative (Negative); PH 6.5 (4.5-8.0); UROBILINOGEN 0.2 E.U./dl (0.0-1.0)
[2021-03-18 12:55] LABS: ALBUMIN 4.4 gm/dl (3.1-4.5); ALKALINE PHOSPHATASE 60 U/L (45-117); BUN 7 mg/dl (7-24); CHLORIDE 107 mmol/L (98-107); CREATININE 0.85 mg/dL (0.55-1.02); LIPASE 125 U/L (73-393); SGOT/AST 31 IU/L (3-35); SGPT/ALT 47 U/L (12-78); SODIUM 139 mmol/L (136-145); TOTAL PROTEIN 8.1 gm/dL (6.4-8.2)
[2021-03-18 13:19] LABS: BACTERIA 2+; CALCIUM OXALATE CRYSTALS 2+; EPITHELIAL CELLS 21-30
[2021-03-18] MEDS ORDERED: ROSUVASTATIN CA40 MG PO (13:34)
[2021-03-18] MEDS ORDERED: ZETIA10 MG PO (13:36)
[2021-03-18] MEDS ORDERED: FAMOTIDINE40 MG PO (13:37)
[2021-03-18] MEDS ORDERED: CONCERTA54 MG PO (13:39)
[2021-03-18] MEDS ORDERED: LANTUS SOL100 UNIT/1 SC (13:40)
[2021-03-18] MEDS ORDERED: AMOX-CLAV 500-1 EACH PO (13:42)
[2021-03-18] MEDS ORDERED: METRONIDAZOLE500 M1 PO (13:43)
[2021-03-18] MEDS ORDERED: BACTRIM 400-801 EACH PO (13:43)
[2021-03-18] MEDS ORDERED: PROMETHAZINE25 M1 PO (13:44)
== END 2021-03-18 14:40 | disposition home or self-care (01) ==
LOC: ED 11:55
PROVIDERS: Nurse Practitioner Family
DX: A08.4 Viral intestinal infection, unspecified (principal); Z20.822 Contact with and (suspected) exposure to COVID-19; E87.6 Hypokalemia; N83.201 Unspecified ovarian cyst, right side; Z88.8 Allergy status to other drugs, medicaments and biological substances; Z79.899 Other long term (current) drug therapy; Z90.49 Acquired absence of other specified parts of digestive tract; Z98.890 Other specified postprocedural states

== ENCOUNTER → 2021-03-22 | Outpatient (CLI) | payer OTHER ==
[~2021-03-22] MED LIST changes: +AMOX-CLAV 500-1 EACH PO; +BACTRIM 400-801 EACH PO; +CONCERTA54 MG PO; +FAMOTIDINE40 MG PO; +LANTUS SOL100 UNIT/1 SC; +METRONIDAZOLE500 M1 PO; +PROMETHAZINE25 M1 PO; +ROSUVASTATIN CA40 MG PO; +ZETIA10 MG PO
[2021-03-22 11:33] LABS: BASO # 0.1 10*3/uL (0.0-0.1); BASO % 1.1 % (0.0-1.0); EOS # 0.5 10*3/uL (0.0-0.4); EOS % 5.2 % (1.0-4.0); HEMATOCRIT 42.3 % (37.0-47.0); LYMPH # 4.3 10*3/uL (1.3-4.4); LYMPH % 41.4 % (27.0-41.0); MEAN CELL VOLUME 93.4 fl (81.0-99.0); MEAN CORPUSCULAR HGB 30.9 pg (27.0-31.0); MEAN CORPUSCULAR HGB CONC 33.1 g/dl (33.0-37.0); MEAN PLATELET VOLUME 12.1 fl (9.6-12.3); MONO # 0.5 10*3/uL (0.1-1.0); NEUT # 4.9 10*3/uL (2.3-7.9); NEUT % 46.9 % (47.0-73.0); PLATELET COUNT AUTOMATED 291 10*3/uL (130-400); RED BLOOD COUNT 4.53 10*6/uL (4.10-5.10); RED CELL DISTRI WIDTH 12.9 % (0-14.5); WHITE BLOOD COUNT 10.4 10*3/uL (4.8-10.8)
[2021-03-22 13:26] LABS: ALBUMIN 4.3 gm/dl (3.1-4.5); ALKALINE PHOSPHATASE 62 U/L (45-117); BUN 10 mg/dl (7-24); CHLORIDE 105 mmol/L (98-107); CREATININE 0.84 mg/dL (0.55-1.02); LIPASE 154 U/L (73-393); POTASSIUM 3.9 mmol/L (3.5-5.1); SGOT/AST 41 IU/L (3-35); SGPT/ALT 54 U/L (12-78); SODIUM 139 mmol/L (136-145); TOTAL PROTEIN 7.9 gm/dL (6.4-8.2)
[2021-03-23 05:06] LABS: CA 19-9 26 U/mL (0-35)
[2021-03-23 06:07] LABS: AFP TUMOR MARKER 6.4 ng/mL (0.0-8.3)
[2021-03-23 08:08] LABS: HEP B CORE AB, IGM Negative (Negative); HEPATITIS B SURFACE AB Non Reactive (.); HEPATITIS B SURFACE AG Negative (Negative); HEPATITIS C VIRUS ANTIBODY <0.1 s/co (0.0-0.9)
== END | disposition home or self-care (01) ==
LOC: LAB 11:06
PROVIDERS: ATTEND Nurse Practitioner Family
DX: K86.89 Other specified diseases of pancreas (principal); R19.7 Diarrhea, unspecified; R10.9 Unspecified abdominal pain; R79.89 Other specified abnormal findings of blood chemistry

== ENCOUNTER 2021-04-13 17:46 | Emergency (ER) | payer OTHER ==
[~2021-04-13] VITALS: Wt 64.0 kg
[2021-04-13 18:14] LABS: BASO # 0.1 10*3/uL (0.0-0.1); BASO % 0.9 % (0.0-1.0); EOS # 0.9 10*3/uL (0.0-0.4); EOS % 7.2 % (1.0-4.0); HEMATOCRIT 40.8 % (37.0-47.0); LYMPH # 4.9 10*3/uL (1.3-4.4); LYMPH % 39.5 % (27.0-41.0); MEAN CELL VOLUME 91.7 fl (81.0-99.0); MEAN CORPUSCULAR HGB CONC 33.8 g/dl (33.0-37.0); MEAN PLATELET VOLUME 11.2 fl (9.6-12.3); MONO # 0.7 10*3/uL (0.1-1.0); MONO % 5.5 % (3.0-9.0); NEUT # 5.8 10*3/uL (2.3-7.9); NEUT % 46.7 % (47.0-73.0); PLATELET COUNT AUTOMATED 359 10*3/uL (130-400); RED BLOOD COUNT 4.45 10*6/uL (4.10-5.10); RED CELL DISTRI WIDTH 12.6 % (0-14.5); WHITE BLOOD COUNT 12.5 10*3/uL (4.8-10.8)
[2021-04-13 18:28] LABS: ACT PARTIAL THROMBO TIME 23.8 SECONDS (20.0-32.1)
[2021-04-13 18:30] LABS: ALKALINE PHOSPHATASE 59 U/L (45-117); BUN 9 mg/dl (7-24); CHLORIDE 103 mmol/L (98-107); CREATININE 0.84 mg/dL (0.55-1.02); POTASSIUM 3.5 mmol/L (3.5-5.1); SGOT/AST 37 IU/L (3-35); SGPT/ALT 56 U/L (12-78); SODIUM 138 mmol/L (136-145); TOTAL PROTEIN 7.3 gm/dL (6.4-8.2)
[2021-04-13 23:13] VITALS: BP 123/78
== END 2021-04-13 23:14 | disposition home or self-care (01) ==
LOC: ED 17:46
PROVIDERS: Emergency Medicine
DX: R07.9 Chest pain, unspecified (principal); Z88.8 Allergy status to other drugs, medicaments and biological substances; Z79.899 Other long term (current) drug therapy; Z90.49 Acquired absence of other specified parts of digestive tract; Z98.890 Other specified postprocedural states

== ENCOUNTER → 2021-04-19 | Outpatient (CLI) | payer OTHER | END | disposition home or self-care (01) | LOC: US 00:37 | PROVIDERS: ATTEND Nurse Practitioner Women's Health | DX: N83.02 Follicular cyst of left ovary (principal); N83.01 Follicular cyst of right ovary; N83.201 Unspecified ovarian cyst, right side ==

== ENCOUNTER → 2021-06-09 | Outpatient (CLI) | payer OTHER ==
[2021-06-09 08:45] LABS: BILIRUBIN Negative (Negative); BLOOD Negative (Negative); CLARITY Clear (Clear); COLOR Yellow (Yellow); GLUCOSE Negative (Negative); KETONE Negative (Negative); LEUKO ESTERASE Negative (Negative); NITRITE Negative (Negative); PH 6.5 (4.5-8.0); SPECIFIC GRAVITY 1.015 (1.001-1.030)
[2021-06-09 09:10] LABS: ALKALINE PHOSPHATASE 46 U/L (45-117); BUN 11 mg/dl (7-24); CHLORIDE 102 mmol/L (98-107); CHOLESTEROL 95 mg/dL (<200); LDL CHOLESTEROL 12 mg/dL (9-159); SGPT/ALT 71 U/L (12-78); SODIUM 138 mmol/L (136-145); TOTAL PROTEIN 7.6 gm/dL (6.4-8.2); TRIGLYCERIDES 227 mg/dl (<150)
[2021-06-09 09:17] LABS: IRON 119 ug/dL (50-170); SGOT/AST 63 IU/L (3-35); TOTAL IRON BINDING CAPACITY 456 ug/dl (250-450)
[2021-06-09 10:00] LABS: VITAMIN D, 25-HYDROXY 44.8 ng/mL (30-100)
[2021-06-09 10:54] LABS: BACTERIA 1+; CALCIUM OXALATE CRYSTALS 1+
[2021-06-10 04:06] LABS: PROGESTERONE 0.3 ng/mL (.)
== END | disposition home or self-care (01) ==
LOC: LAB 00:16
PROVIDERS: ATTEND Internal Medicine
DX: E11.65 Type 2 diabetes mellitus with hyperglycemia (principal); E61.1 Iron deficiency; E55.9 Vitamin D deficiency, unspecified; E78.5 Hyperlipidemia, unspecified; E34.9 Endocrine disorder, unspecified; E04.9 Nontoxic goiter, unspecified

== ENCOUNTER 2021-08-16 12:33 | Emergency (ER) | payer OTHER ==
[~2021-08-16] VITALS: Ht 165.1 cm; Wt 72.6 kg
[2021-08-16 13:08] LABS: BASO # 0.1 10*3/uL (0.0-0.1); BASO % 0.8 % (0.0-1.0); EOS # 0.1 10*3/uL (0.0-0.4); EOS % 1.1 % (1.0-4.0); HEMATOCRIT 39.4 % (37.0-47.0); LYMPH # 3.9 10*3/uL (1.3-4.4); LYMPH % 34.6 % (27.0-41.0); MEAN CELL VOLUME 92.5 fl (81.0-99.0); MEAN CORPUSCULAR HGB 31.5 pg (27.0-31.0); MEAN PLATELET VOLUME 11.6 fl (9.6-12.3); MONO # 0.4 10*3/uL (0.1-1.0); MONO % 3.8 % (3.0-9.0); NEUT # 6.8 10*3/uL (2.3-7.9); NEUT % 59.4 % (47.0-73.0); PLATELET COUNT AUTOMATED 295 10*3/uL (130-400); RED BLOOD COUNT 4.26 10*6/uL (4.10-5.10); RED CELL DISTRI WIDTH 12.8 % (0-14.5); WHITE BLOOD COUNT 11.4 10*3/uL (4.8-10.8)
[2021-08-16 13:24] LABS: ACT PARTIAL THROMBO TIME 23.7 SECONDS (20.0-32.1)
[2021-08-16 13:35] LABS: ALKALINE PHOSPHATASE 43 U/L (45-117); BUN 12 mg/dl (7-24); CHLORIDE 106 mmol/L (98-107); CREATININE 0.74 mg/dL (0.55-1.02); POTASSIUM 3.2 mmol/L (3.5-5.1); SGOT/AST 21 IU/L (3-35); SGPT/ALT 33 U/L (12-78); SODIUM 140 mmol/L (136-145); TOTAL PROTEIN 7.7 gm/dL (6.4-8.2)
[2021-08-16 14:05] VITALS: BP 102/64
[2021-08-16 14:15] LABS: BILIRUBIN Negative (Negative); BLOOD Negative (Negative); CLARITY Cloudy (Clear); COLOR Yellow (Yellow); GLUCOSE Negative (Negative); KETONE Negative (Negative); LEUKO ESTERASE 1+ (Negative); NITRITE Negative (Negative); PH 5.5 (4.5-8.0); SPECIFIC GRAVITY 1.015 (1.001-1.030); UROBILINOGEN 0.2 E.U./dl (0.0-1.0)
[2021-08-16 14:24] LABS: BACTERIA 2+
[2021-08-16 14:25] LABS: EPITHELIAL CELLS 16-20
== END 2021-08-16 16:01 | disposition home or self-care (01) ==
LOC: ED 12:33
PROVIDERS: Emergency Medicine
DX: R07.89 Other chest pain (principal); J44.9 Chronic obstructive pulmonary disease, unspecified; E11.9 Type 2 diabetes mellitus without complications; K21.9 Gastro-esophageal reflux disease without esophagitis; I10 Essential (primary) hypertension; Z88.8 Allergy status to other drugs, medicaments and biological substances; Z88.6 Allergy status to analgesic agent; Z79.899 Other long term (current) drug therapy; Z90.49 Acquired absence of other specified parts of digestive tract

== ENCOUNTER 2021-08-23 18:55 | Emergency (ER) | payer OTHER ==
[~2021-08-23] VITALS: Ht 157.4 cm; Wt 59.0 kg
[2021-08-23 19:39] VITALS: BP 132/70
[2021-08-23 21:04] LABS: HEMATOCRIT 42.8 % (37.0-47.0); MEAN CELL VOLUME 92.6 fl (81.0-99.0); MEAN CORPUSCULAR HGB 31.4 pg (27.0-31.0); MEAN CORPUSCULAR HGB CONC 33.9 g/dl (33.0-37.0); MEAN PLATELET VOLUME 11.7 fl (9.6-12.3); PLATELET COUNT AUTOMATED 297 10*3/uL (130-400); RED BLOOD COUNT 4.62 10*6/uL (4.10-5.10); RED CELL DISTRI WIDTH 12.8 % (0-14.5); WHITE BLOOD COUNT 10.9 10*3/uL (4.8-10.8)
[2021-08-23 21:14] LABS: MANUAL DIFF REFLEX YES
[2021-08-23 21:19] LABS: ALKALINE PHOSPHATASE 49 U/L (45-117); BUN 12 mg/dl (7-24); CHLORIDE 104 mmol/L (98-107); CREATININE 0.79 mg/dL (0.55-1.02); POTASSIUM 3.6 mmol/L (3.5-5.1); SGOT/AST 22 IU/L (3-35); SGPT/ALT 35 U/L (12-78); SODIUM 138 mmol/L (136-145); TOTAL PROTEIN 7.9 gm/dL (6.4-8.2)
[2021-08-23 21:21] LABS: B-hCG (QUALITATIVE) NEGATIVE (NEGATIVE)
[2021-08-23 21:53] LABS: PLATELET SUFFICIENCY NORMAL (NORMAL); TOTAL CELLS COUNTED 100 #CELLS
[2021-08-23 22:10] LABS: BILIRUBIN Negative (Negative); BLOOD Negative (Negative); CLARITY Cloudy (Clear); COLOR Yellow (Yellow); GLUCOSE Negative (Negative); KETONE Trace (Negative); LEUKO ESTERASE 2+ (Negative); NITRITE Negative (Negative); PH 5.5 (4.5-8.0); UROBILINOGEN 0.2 E.U./dl (0.0-1.0)
[2021-08-23 22:22] LABS: BACTERIA 1+; EPITHELIAL CELLS TNTC; WBC 16-20 wbc/hpf (0-5)
== END 2021-08-23 22:46 | disposition home or self-care (01) ==
LOC: ED 18:55
PROVIDERS: Physician Assistant
DX: B34.9 Viral infection, unspecified (principal); Z20.822 Contact with and (suspected) exposure to COVID-19; Z88.8 Allergy status to other drugs, medicaments and biological substances; Z79.899 Other long term (current) drug therapy; Z90.49 Acquired absence of other specified parts of digestive tract; Z98.890 Other specified postprocedural states

== ENCOUNTER → 2021-09-30 | Outpatient (CLI) | payer OTHER ==
[2021-09-30 09:45] LABS: ALKALINE PHOSPHATASE 48 U/L (45-117); BUN 12 mg/dl (7-24); CHLORIDE 105 mmol/L (98-107); CHOLESTEROL 111 mg/dL (<200); CREATININE 0.71 mg/dL (0.55-1.02); IRON 105 ug/dL (50-170); LDL CHOLESTEROL 30 mg/dL (9-159); POTASSIUM 3.6 mmol/L (3.5-5.1); SGOT/AST 21 IU/L (3-35); SGPT/ALT 36 U/L (12-78); SODIUM 140 mmol/L (136-145); TOTAL PROTEIN 7.4 gm/dL (6.4-8.2); TRIGLYCERIDES 182 mg/dl (<150)
[2021-09-30 11:24] LABS: VITAMIN D, 25-HYDROXY 58.7 ng/mL (30-100)
== END | disposition home or self-care (01) ==
LOC: LAB 00:53
PROVIDERS: ATTEND Internal Medicine
DX: E11.65 Type 2 diabetes mellitus with hyperglycemia (principal); E11.40 Type 2 diabetes mellitus with diabetic neuropathy, unspecified; E78.5 Hyperlipidemia, unspecified; E61.1 Iron deficiency; E55.9 Vitamin D deficiency, unspecified

== ENCOUNTER → 2021-10-11 | Outpatient (CLI) | payer OTHER | LOC: MAMMO 02:27 | PROVIDERS: ATTEND Nurse Practitioner Women's Health | DX: R92.8 Other abnormal and inconclusive findings on diagnostic imaging of breast (principal); N64.59 Other signs and symptoms in breast ==

== ENCOUNTER 2021-12-24 11:55 | Emergency (ER) | payer OTHER ==
[~2021-12-24] VITALS: Ht 157.4 cm; Wt 54.9 kg
[2021-12-24 14:44] LABS: BASO # 0.1 10*3/uL (0.0-0.1); BASO % 0.4 % (0.0-1.0); EOS % 0.3 % (1.0-4.0); HEMATOCRIT 43.6 % (37.0-47.0); LYMPH # 1.6 10*3/uL (1.3-4.4); LYMPH % 13.8 % (27.0-41.0); MEAN CELL VOLUME 91.6 fl (81.0-99.0); MEAN CORPUSCULAR HGB 30.7 pg (27.0-31.0); MEAN CORPUSCULAR HGB CONC 33.5 g/dl (33.0-37.0); MONO # 0.8 10*3/uL (0.1-1.0); MONO % 6.6 % (3.0-9.0); NEUT # 9.1 10*3/uL (2.3-7.9); NEUT % 78.6 % (47.0-73.0); PLATELET COUNT AUTOMATED 273 10*3/uL (130-400); RED BLOOD COUNT 4.76 10*6/uL (4.10-5.10); RED CELL DISTRI WIDTH 11.9 % (0-14.5); WHITE BLOOD COUNT 11.6 10*3/uL (4.8-10.8)
[2021-12-24 14:55] LABS: BILIRUBIN Negative (Negative); BLOOD Negative (Negative); CLARITY Cloudy (Clear); COLOR Yellow (Yellow); GLUCOSE 3+ (Negative); KETONE Trace (Negative); LEUKO ESTERASE Negative (Negative); NITRITE Negative (Negative); SPECIFIC GRAVITY >= 1.030 (1.001-1.030)
[2021-12-24 14:59] LABS: ALKALINE PHOSPHATASE 55 U/L (45-117); BUN 16 mg/dl (7-24); CHLORIDE 101 mmol/L (98-107); CREATININE 0.72 mg/dL (0.55-1.02); POTASSIUM 3.7 mmol/L (3.5-5.1); SGOT/AST 30 IU/L (3-35); SGPT/ALT 51 U/L (12-78); SODIUM 137 mmol/L (136-145); TOTAL PROTEIN 8.1 gm/dL (6.4-8.2)
[2021-12-24 15:18] LABS: BACTERIA 4+; RBC 0-2 rbc/hpf (0-2); WBC 0-2 wbc/hpf (0-5)
[2021-12-24 15:22] VITALS: BP 136/82
[2021-12-24 15:36] LABS: URINE AMPHETAMINES > 1000 (1000ng/ml); URINE BARBITURATES < 200 (200ng/ml); URINE BENZODIAZEPINES < 200 (200ng/ml); URINE CANNABINOIDS (THC) < 50 (50ng/ml); URINE COCAINE < 300 (300ng/ml); URINE METHADONE < 300 (300ng/ml); URINE OPIATES < 300 (300ng/ml)
[2021-12-24 15:47] LABS: URINE PHENCYCLIDINE < 25 (25ng/ml)
[2021-12-24] MEDS ORDERED: ZITHROMAX250 MG PO ×2 (17:15→17:44)
[2021-12-24] MEDS ORDERED: BROMFED DM COU118 M2 PO ×2 (17:15→17:44)
== END 2021-12-24 17:38 | disposition home or self-care (01) ==
LOC: ED 11:55
PROVIDERS: Nurse Practitioner Family
DX: J20.9 Acute bronchitis, unspecified (principal); Z20.822 Contact with and (suspected) exposure to COVID-19; Z88.8 Allergy status to other drugs, medicaments and biological substances; Z79.899 Other long term (current) drug therapy; Z90.49 Acquired absence of other specified parts of digestive tract; Z98.890 Other specified postprocedural states

== ENCOUNTER 2022-01-10 17:48 | Emergency (ER) | payer OTHER ==
[~2022-01-10] VITALS: Ht 157.4 cm; Wt 54.9 kg
[~2022-01-10 17:48] MED LIST changes: +BROMFED DM COU118 M2 PO
[2022-01-10 19:34] LABS: BASO # 0.1 10*3/uL (0.0-0.1); BASO % 1.1 % (0.0-1.0); EOS # 0.6 10*3/uL (0.0-0.4); EOS % 5.1 % (1.0-4.0); HEMATOCRIT 40.8 % (37.0-47.0); LYMPH # 4.8 10*3/uL (1.3-4.4); MEAN CELL VOLUME 89.9 fl (81.0-99.0); MEAN CORPUSCULAR HGB 31.9 pg (27.0-31.0); MEAN CORPUSCULAR HGB CONC 35.5 g/dl (33.0-37.0); MEAN PLATELET VOLUME 11.2 fl (9.6-12.3); MONO # 0.6 10*3/uL (0.1-1.0); MONO % 5.9 % (3.0-9.0); NEUT # 4.8 10*3/uL (2.3-7.9); NEUT % 43.7 % (47.0-73.0); PLATELET COUNT AUTOMATED 383 10*3/uL (130-400); RED BLOOD COUNT 4.54 10*6/uL (4.10-5.10); RED CELL DISTRI WIDTH 12.2 % (0-14.5); WHITE BLOOD COUNT 10.9 10*3/uL (4.8-10.8)
[2022-01-10 19:46] LABS: ACT PARTIAL THROMBO TIME 23.6 SECONDS (20.0-32.1)
[2022-01-10 19:50] LABS: ALKALINE PHOSPHATASE 47 U/L (45-117); BUN 17 mg/dl (7-24); CHLORIDE 105 mmol/L (98-107); CREATININE 0.74 mg/dL (0.55-1.02); LIPASE 144 U/L (73-393); POTASSIUM 3.3 mmol/L (3.5-5.1); SGPT/ALT 37 U/L (12-78); SODIUM 138 mmol/L (136-145); TOTAL PROTEIN 7.7 gm/dL (6.4-8.2)
[2022-01-10 19:55] LABS: BILIRUBIN Negative (Negative); BLOOD Negative (Negative); CLARITY Clear (Clear); COLOR Yellow (Yellow); GLUCOSE Trace (Negative); KETONE Negative (Negative); LEUKO ESTERASE Trace (Negative); NITRITE Negative (Negative)
[2022-01-10 20:19] LABS: BACTERIA 1+; CALCIUM OXALATE CRYSTALS 1+; EPITHELIAL CELLS 31-40; WBC 0-2 wbc/hpf (0-5)
[2022-01-10 21:43] VITALS: BP 142/71
== END 2022-01-10 21:55 | disposition home or self-care (01) ==
LOC: ED 17:48
PROVIDERS: Physician Assistant
DX: I10 Essential (primary) hypertension (principal); F41.9 Anxiety disorder, unspecified; E11.9 Type 2 diabetes mellitus without complications; J44.9 Chronic obstructive pulmonary disease, unspecified; J45.909 Unspecified asthma, uncomplicated; E78.00 Pure hypercholesterolemia, unspecified; G43.909 Migraine, unspecified, not intractable, without status migrainosus; Z90.49 Acquired absence of other specified parts of digestive tract; Z98.890 Other specified postprocedural states; Z79.899 Other long term (current) drug therapy; Z88.8 Allergy status to other drugs, medicaments and biological substances

== ENCOUNTER 2022-02-20 12:38 | Emergency (ER) | payer OTHER ==
[~2022-02-20] VITALS: Ht 157.4 cm; Wt 60.3 kg
[2022-02-20 13:00] VITALS: BP 131/79
== END 2022-02-20 13:08 | disposition left against medical advice (07) ==
LOC: ED 12:38
DX: M54.9 Dorsalgia, unspecified (principal); Z53.21 Procedure and treatment not carried out due to patient leaving prior to being seen by health care provider

== ENCOUNTER → 2022-03-27 | Outpatient (CLI) | payer OTHER | END | disposition home or self-care (01) | LOC: RAD 03-17 09:00 | PROVIDERS: ATTEND Nurse Practitioner Family | DX: M81.0 Age-related osteoporosis without current pathological fracture (principal) ==

== ENCOUNTER 2022-04-02 05:31 | Emergency (ER) | payer OTHER ==
[~2022-04-02] VITALS: Ht 162.5 cm; Wt 72.6 kg
[2022-04-02 05:45] VITALS: BP 116/79
[2022-04-02 06:24] LABS: BASO # 0.1 10*3/uL (0.0-0.1); BASO % 0.8 % (0.0-1.0); EOS # 0.4 10*3/uL (0.0-0.4); EOS % 3.6 % (1.0-4.0); HEMATOCRIT 42.2 % (37.0-47.0); LYMPH # 4.5 10*3/uL (1.3-4.4); LYMPH % 37.9 % (27.0-41.0); MEAN CELL VOLUME 93.6 fl (81.0-99.0); MEAN CORPUSCULAR HGB 30.6 pg (27.0-31.0); MEAN CORPUSCULAR HGB CONC 32.7 g/dl (33.0-37.0); MEAN PLATELET VOLUME 10.9 fl (9.6-12.3); MONO # 0.8 10*3/uL (0.1-1.0); MONO % 6.7 % (3.0-9.0); NEUT # 5.9 10*3/uL (2.3-7.9); NEUT % 50.2 % (47.0-73.0); PLATELET COUNT AUTOMATED 306 10*3/uL (130-400); RED BLOOD COUNT 4.51 10*6/uL (4.10-5.10); RED CELL DISTRI WIDTH 13.2 % (0-14.5); WHITE BLOOD COUNT 11.8 10*3/uL (4.8-10.8)
[2022-04-02] MEDS ORDERED: PATADAY5 ML OD (09:00)
[2022-04-02] MEDS ORDERED: ALLERGY RELIEF10 M2 PO (09:00)
[2022-04-02] MEDS ORDERED: AVPAK AZITHROM250 M1 PO (09:00)
[2022-04-02 09:08] LABS: ALKALINE PHOSPHATASE 46 U/L (46-116); BUN 12 mg/dl (9-23); CHLORIDE 98 mmol/L (98-107); SGPT/ALT 42 U/L (10-49); TOTAL PROTEIN 7.3 gm/dL (6.0-8.0)
== END 2022-04-02 09:11 | disposition home or self-care (01) ==
LOC: ED 05:31
PROVIDERS: Internal Medicine
DX: R07.89 Other chest pain (principal); J32.9 Chronic sinusitis, unspecified; Z88.8 Allergy status to other drugs, medicaments and biological substances; Z90.49 Acquired absence of other specified parts of digestive tract; Z98.890 Other specified postprocedural states

== ENCOUNTER 2022-04-27 13:49 | Emergency (ER) | payer OTHER ==
[~2022-04-27] VITALS: Ht 157.4 cm; Wt 59.0 kg
[~2022-04-27 13:49] MED LIST changes: +ALLERGY RELIEF10 M2 PO; +PATADAY5 ML OD
[2022-04-27 14:43] VITALS: BP 124/90
== END 2022-04-27 17:06 | disposition left against medical advice (07) ==
LOC: ED 13:49
DX: R73.9 Hyperglycemia, unspecified (principal); Z53.21 Procedure and treatment not carried out due to patient leaving prior to being seen by health care provider

== ENCOUNTER 2022-05-12 12:42 | Emergency (ER) | payer OTHER ==
[~2022-05-12] VITALS: Ht 157.4 cm; Wt 59.0 kg
[2022-05-12 12:49] VITALS: BP 156/82
[2022-05-12 14:09] LABS: BASO # 0.1 10*3/uL (0.0-0.1); EOS # 0.4 10*3/uL (0.0-0.4); EOS % 3.4 % (1.0-4.0); HEMATOCRIT 42.6 % (37.0-47.0); LYMPH # 3.2 10*3/uL (1.3-4.4); LYMPH % 29.4 % (27.0-41.0); MEAN CELL VOLUME 93.2 fl (81.0-99.0); MEAN CORPUSCULAR HGB 31.5 pg (27.0-31.0); MEAN CORPUSCULAR HGB CONC 33.8 g/dl (33.0-37.0); MEAN PLATELET VOLUME 10.9 fl (9.6-12.3); MONO # 0.5 10*3/uL (0.1-1.0); MONO % 4.9 % (3.0-9.0); NEUT # 6.7 10*3/uL (2.3-7.9); NEUT % 60.8 % (47.0-73.0); PLATELET COUNT AUTOMATED 344 10*3/uL (130-400); RED BLOOD COUNT 4.57 10*6/uL (4.10-5.10); RED CELL DISTRI WIDTH 12.8 % (0-14.5)
[2022-05-12 14:21] LABS: ACT PARTIAL THROMBO TIME 24.2 SECONDS (20.0-32.1)
[2022-05-12 14:25] LABS: ALKALINE PHOSPHATASE 48 U/L (46-116); BETA-HCG, QUANT < 3.0 mIU/mL (0-10); BUN 9 mg/dl (9-23); CHLORIDE 97 mmol/L (98-107); LIPASE 39 U/L (12-53); POTASSIUM 3.8 mmol/L (3.4-5.1); SGPT/ALT 48 U/L (10-49); TOTAL PROTEIN 7.8 gm/dL (6.0-8.0)
[2022-05-12 15:05] LABS: BILIRUBIN Negative (Negative); BLOOD Negative (Negative); CLARITY Clear (Clear); COLOR Yellow (Yellow); GLUCOSE Negative (Negative); KETONE Negative (Negative); LEUKO ESTERASE Negative (Negative); NITRITE Negative (Negative); UROBILINOGEN 0.2 E.U./dl (0.0-1.0)
[2022-05-12 16:38] LABS: BACTERIA 1+; RBC 0-2 rbc/hpf (0-2)
[2022-05-12] MEDS ORDERED: PHENERGAN25 M3 PO (17:57)
== END 2022-05-12 18:08 | disposition home or self-care (01) ==
LOC: ED 12:42
PROVIDERS: Physician Assistant
DX: R10.9 Unspecified abdominal pain (principal); R11.2 Nausea with vomiting, unspecified; R07.9 Chest pain, unspecified; Z88.8 Allergy status to other drugs, medicaments and biological substances; Z79.899 Other long term (current) drug therapy; Z90.49 Acquired absence of other specified parts of digestive tract; Z98.890 Other specified postprocedural states

== ENCOUNTER 2022-06-17 07:23 | Emergency (ER) | payer OTHER ==
[~2022-06-17] VITALS: Wt 62.1 kg
[~2022-06-17 07:23] MED LIST changes: -ALENDRONATE SOD70 M1 PO; -CAPLYTA42 MG PO; -CYMBALTA30 MG PO; -DEXILANT60 M1 PO; -GABAPENTIN100 M2 PO; -METOPROLOL SUCC25 M2 PO; -OYSTER SHELL 51 EAC5 PO; -ROPINIROLE HY0.25 MG PO; -TRICOR145 M1 PO
[2022-06-17 07:36] VITALS: BP 129/86
[2022-06-17] MEDS ORDERED: OYSTER SHELL 51 EAC5 PO (07:59)
[2022-06-17] MEDS ORDERED: CYMBALTA30 MG PO (08:01)
[2022-06-17] MEDS ORDERED: TRICOR145 M1 PO (08:06)
[2022-06-17] MEDS ORDERED: DEXILANT60 M1 PO (08:08)
[2022-06-17] MEDS ORDERED: CAPLYTA42 MG PO (08:09)
[2022-06-17] MEDS ORDERED: ALENDRONATE SOD70 M1 PO (08:11)
[2022-06-17] MEDS ORDERED: METOPROLOL SUCC25 M2 PO (08:14)
[2022-06-17] MEDS ORDERED: ROPINIROLE HY0.25 MG PO (08:51)
[2022-06-17] MEDS ORDERED: GABAPENTIN100 M2 PO (08:51)
== END 2022-06-17 09:04 | disposition home or self-care (01) ==
LOC: ED 07:23
DX: E11.40 Type 2 diabetes mellitus with diabetic neuropathy, unspecified (principal); M54.32 Sciatica, left side; M54.31 Sciatica, right side; I10 Essential (primary) hypertension; J44.9 Chronic obstructive pulmonary disease, unspecified; F31.9 Bipolar disorder, unspecified; G43.909 Migraine, unspecified, not intractable, without status migrainosus; E78.00 Pure hypercholesterolemia, unspecified; Z88.6 Allergy status to analgesic agent; Z88.8 Allergy status to other drugs, medicaments and biological substances; Z90.49 Acquired absence of other specified parts of digestive tract; Z98.890 Other specified postprocedural states

== ENCOUNTER → 2022-06-17 | Outpatient (CLI) | payer OTHER ==
[~2022-06-17] MED LIST changes: +ALENDRONATE SOD70 M1 PO; +CAPLYTA42 MG PO; +CYMBALTA30 MG PO; +DEXILANT60 M1 PO; +GABAPENTIN100 M2 PO; +METOPROLOL SUCC25 M2 PO; +OYSTER SHELL 51 EAC5 PO; +ROPINIROLE HY0.25 MG PO; +TRICOR145 M1 PO
[2022-06-17 07:33] LABS: HEMATOCRIT 39.8 % (37.0-47.0)
[2022-06-17 07:41] LABS: BILIRUBIN Negative (Negative); BLOOD Negative (Negative); CLARITY Clear (Clear); COLOR Yellow (Yellow); GLUCOSE Negative (Negative); KETONE Negative (Negative); LEUKO ESTERASE Negative (Negative); NITRITE Negative (Negative); PH 6.5 (4.5-8.0); SPECIFIC GRAVITY 1.015 (1.001-1.030); UROBILINOGEN 0.2 E.U./dl (0.0-1.0)
[2022-06-17 08:24] LABS: ALKALINE PHOSPHATASE 40 U/L (46-116); BUN 7 mg/dl (9-23); CHLORIDE 104 mmol/L (98-107); CHOLESTEROL 115 mg/dL (<200); LDL CHOLESTEROL 13 mg/dL (9-159); POTASSIUM 3.8 mmol/L (3.4-5.1); SGPT/ALT 35 U/L (10-49); TOTAL PROTEIN 6.8 gm/dL (6.0-8.0); TRIGLYCERIDES 275 mg/dl (<150)
[2022-06-17 08:29] LABS: VITAMIN D, 25-HYDROXY 49.6 ng/mL (30-100)
[2022-06-17 08:50] LABS: BACTERIA 1+; RBC 0-2 rbc/hpf (0-2); WBC 0-2 wbc/hpf (0-5)
== END | disposition home or self-care (01) ==
LOC: LAB 01:43
PROVIDERS: ATTEND Internal Medicine
DX: E11.65 Type 2 diabetes mellitus with hyperglycemia (principal); E11.40 Type 2 diabetes mellitus with diabetic neuropathy, unspecified; E61.1 Iron deficiency; E55.9 Vitamin D deficiency, unspecified; E78.5 Hyperlipidemia, unspecified

== ENCOUNTER → 2022-06-20 | Outpatient (CLI) | payer OTHER ==
[~2022-06-20] MED LIST changes: +ALENDRONATE SOD70 M1 PO; +CAPLYTA42 MG PO; +CYMBALTA30 MG PO; +DEXILANT60 M1 PO; +GABAPENTIN100 M2 PO; +METOPROLOL SUCC25 M2 PO; +OYSTER SHELL 51 EAC5 PO; +ROPINIROLE HY0.25 MG PO; +TRICOR145 M1 PO
== END ==
LOC: CARD 00:24
PROVIDERS: ATTEND Internal Medicine Cardiovascular Disease
DX: I10 Essential (primary) hypertension (principal); R07.9 Chest pain, unspecified; R06.02 Shortness of breath

== ENCOUNTER → 2022-06-27 | Outpatient (CLI) | payer OTHER | END | disposition home or self-care (01) | LOC: LAB 09:41 | PROVIDERS: ATTEND Internal Medicine Critical Care Medicine | DX: R53.83 Other fatigue (principal); D14.32 Benign neoplasm of left bronchus and lung; J30.89 Other allergic rhinitis; J45.50 Severe persistent asthma, uncomplicated; R91.1 Solitary pulmonary nodule; Z87.891 Personal history of nicotine dependence ==

== ENCOUNTER 2022-07-01 16:29 | Emergency (ER) | payer OTHER ==
[~2022-07-01] VITALS: Ht 157.4 cm; Wt 62.1 kg
[2022-07-01 16:49] VITALS: BP 157/95
[2022-07-01] MEDS ORDERED: LANTUS SOL100 UNIT/1 SC (17:01)
[2022-07-01] MEDS ORDERED: MIRAPEX0.5 MG PO (17:07)
[2022-07-01 17:30] LABS: BILIRUBIN Negative (Negative); BLOOD Negative (Negative); CLARITY Clear (Clear); COLOR Yellow (Yellow); GLUCOSE Negative (Negative); KETONE Negative (Negative); LEUKO ESTERASE Negative (Negative); NITRITE Negative (Negative); SPECIFIC GRAVITY <= 1.005 (1.001-1.030); UROBILINOGEN 0.2 E.U./dl (0.0-1.0)
[2022-07-01 17:41] LABS: BACTERIA TRACE
[2022-07-01] MEDS ORDERED: REGLAN10 M1 PO (18:28)
[2022-07-01] MEDS ORDERED: AVPAK AZITHROM250 M1 PO (18:28)
== END 2022-07-01 18:38 | disposition home or self-care (01) ==
LOC: ED 16:29
PROVIDERS: Emergency Medicine
DX: G43.909 Migraine, unspecified, not intractable, without status migrainosus (principal); J32.9 Chronic sinusitis, unspecified; E11.9 Type 2 diabetes mellitus without complications; I10 Essential (primary) hypertension; J44.9 Chronic obstructive pulmonary disease, unspecified; F31.9 Bipolar disorder, unspecified; E78.00 Pure hypercholesterolemia, unspecified; Z88.8 Allergy status to other drugs, medicaments and biological substances; Z88.5 Allergy status to narcotic agent; Z88.6 Allergy status to analgesic agent; Z90.49 Acquired absence of other specified parts of digestive tract; Z98.890 Other specified postprocedural states; Z79.899 Other long term (current) drug therapy

== ENCOUNTER → 2022-07-14 | Outpatient (CLI) | payer OTHER ==
[~2022-07-14] MED LIST changes: +'CLONIDINE0.1 MG PO; +B12-FOLIC ACID1 EACH PO; +DITROPAN XL5 MG PO; +METOCLOPRAMIDE10 MG PO; +MIRAPEX0.5 MG PO; +Meclizine25 MG PO; +REGLAN10 M1 PO; +ROPINIROLE HYD0.5 MG PO
== END | disposition home or self-care (01) ==
LOC: CARD 01:23
PROVIDERS: ATTEND Internal Medicine Cardiovascular Disease
DX: R07.89 Other chest pain (principal)

== ENCOUNTER 2022-07-24 06:57 | Emergency (ER) | payer OTHER ==
[~2022-07-24] VITALS: Ht 157.4 cm; Wt 59.0 kg
[2022-07-24 07:05] VITALS: BP 151/79
[2022-07-24 07:59] LABS: BASO # 0.1 10*3/uL (0.0-0.1); BASO % 1.1 % (0.0-1.0); EOS # 0.3 10*3/uL (0.0-0.4); EOS % 3.7 % (1.0-4.0); HEMATOCRIT 40.3 % (37.0-47.0); LYMPH # 2.4 10*3/uL (1.3-4.4); LYMPH % 26.2 % (27.0-41.0); MEAN CELL VOLUME 93.5 fl (81.0-99.0); MEAN CORPUSCULAR HGB CONC 34.2 g/dl (33.0-37.0); MEAN PLATELET VOLUME 11.7 fl (9.6-12.3); MONO # 0.4 10*3/uL (0.1-1.0); NEUT # 5.8 10*3/uL (2.3-7.9); NEUT % 64.6 % (47.0-73.0); PLATELET COUNT AUTOMATED 325 10*3/uL (130-400); RED BLOOD COUNT 4.31 10*6/uL (4.10-5.10); RED CELL DISTRI WIDTH 12.4 % (0-14.5)
[2022-07-24 08:00] LABS: BILIRUBIN Negative (Negative); BLOOD Negative (Negative); CLARITY Clear (Clear); COLOR Yellow (Yellow); GLUCOSE 3+ (Negative); KETONE Negative (Negative); LEUKO ESTERASE Negative (Negative); NITRITE Negative (Negative); UROBILINOGEN 0.2 E.U./dl (0.0-1.0)
[2022-07-24 08:12] LABS: BACTERIA TRACE; MUCOUS TRACE; RBC 0-2 rbc/hpf (0-2); WBC 0-2 wbc/hpf (0-5)
[2022-07-24 08:31] LABS: ALKALINE PHOSPHATASE 42 U/L (46-116); B-hCG (QUALITATIVE) NEGATIVE (NEGATIVE); BUN 7 mg/dl (9-23); CHLORIDE 102 mmol/L (98-107); LIPASE 57 U/L (12-53); POTASSIUM 3.3 mmol/L (3.4-5.1); SGPT/ALT 26 U/L (10-49); TOTAL PROTEIN 7.2 gm/dL (6.0-8.0)
== END 2022-07-24 09:45 | disposition home or self-care (01) ==
LOC: ED 06:57
PROVIDERS: Family Medicine
DX: N83.209 Unspecified ovarian cyst, unspecified side (principal); E11.9 Type 2 diabetes mellitus without complications; I10 Essential (primary) hypertension; J44.9 Chronic obstructive pulmonary disease, unspecified; F31.9 Bipolar disorder, unspecified; E78.00 Pure hypercholesterolemia, unspecified; Z88.6 Allergy status to analgesic agent; Z88.8 Allergy status to other drugs, medicaments and biological substances; Z88.5 Allergy status to narcotic agent; Z90.49 Acquired absence of other specified parts of digestive tract; Z98.890 Other specified postprocedural states; Z98.51 Tubal ligation status

== ENCOUNTER 2022-08-08 08:07 | Emergency (ER) | payer OTHER ==
[~2022-08-08] VITALS: Ht 160 cm; Wt 72.6 kg
[2022-08-08 08:16] VITALS: BP 124/64
[2022-08-08 08:38] LABS: BILIRUBIN Negative (Negative); BLOOD Negative (Negative); CLARITY Clear (Clear); COLOR Yellow (Yellow); GLUCOSE Negative (Negative); KETONE Negative (Negative); LEUKO ESTERASE Negative (Negative); NITRITE Negative (Negative); PH 6.5 (4.5-8.0); UROBILINOGEN 0.2 E.U./dl (0.0-1.0)
[2022-08-08 08:49] LABS: BACTERIA TRACE
[2022-08-08 08:50] LABS: BASO # 0.2 10*3/uL (0.0-0.1); BASO % 1.3 % (0.0-1.0); EOS # 0.8 10*3/uL (0.0-0.4); EOS % 5.8 % (1.0-4.0); LYMPH # 3.4 10*3/uL (1.3-4.4); LYMPH % 25.5 % (27.0-41.0); MEAN CELL VOLUME 94.7 fl (81.0-99.0); MEAN CORPUSCULAR HGB 31.4 pg (27.0-31.0); MEAN CORPUSCULAR HGB CONC 33.2 g/dl (33.0-37.0); MEAN PLATELET VOLUME 11.8 fl (9.6-12.3); MONO # 0.6 10*3/uL (0.1-1.0); MONO % 4.4 % (3.0-9.0); NEUT # 8.3 10*3/uL (2.3-7.9); NEUT % 62.5 % (47.0-73.0); PLATELET COUNT AUTOMATED 348 10*3/uL (130-400); RED BLOOD COUNT 4.33 10*6/uL (4.10-5.10); RED CELL DISTRI WIDTH 12.6 % (0-14.5); WHITE BLOOD COUNT 13.2 10*3/uL (4.8-10.8)
[2022-08-08 09:01] LABS: ACT PARTIAL THROMBO TIME 24.1 SECONDS (20.0-32.1)
[2022-08-08 09:26] LABS: ALKALINE PHOSPHATASE 37 U/L (46-116); BUN 9 mg/dl (9-23); CHLORIDE 103 mmol/L (98-107); LIPASE 40 U/L (12-53); POTASSIUM 3.7 mmol/L (3.4-5.1); SGPT/ALT 35 U/L (10-49); TOTAL PROTEIN 7.2 gm/dL (6.0-8.0)
[2022-08-08 09:30] LABS: BETA-HCG, QUANT < 3.0 mIU/mL (3-10)
[2022-08-08] MEDS ORDERED: HYDROCODONE-AC1 EAC1 PO (10:57)
[2022-08-08] MEDS ORDERED: PHENERGAN25 M3 PO (10:57)
== END 2022-08-08 11:01 | disposition home or self-care (01) ==
LOC: ED 08:07
PROVIDERS: Emergency Medicine
DX: N83.202 Unspecified ovarian cyst, left side (principal); R11.0 Nausea; E11.9 Type 2 diabetes mellitus without complications; I10 Essential (primary) hypertension; J44.9 Chronic obstructive pulmonary disease, unspecified; F31.9 Bipolar disorder, unspecified; F41.9 Anxiety disorder, unspecified; K21.9 Gastro-esophageal reflux disease without esophagitis; G43.909 Migraine, unspecified, not intractable, without status migrainosus; E78.00 Pure hypercholesterolemia, unspecified; Z88.8 Allergy status to other drugs, medicaments and biological substances; Z88.6 Allergy status to analgesic agent; Z90.49 Acquired absence of other specified parts of digestive tract; Z98.890 Other specified postprocedural states; Z98.51 Tubal ligation status

== ENCOUNTER 2022-08-19 12:22 | Emergency (ER) | payer OTHER ==
[~2022-08-19] VITALS: Ht 157.4 cm; Wt 59.0 kg
[~2022-08-19 12:22] MED LIST changes: +HYDROCODONE-AC1 EAC1 PO
[2022-08-19 12:30] VITALS: BP 144/97
[2022-08-19] MEDS ORDERED: CEPHALEXIN500 M1 PO (13:28)
== END 2022-08-19 13:39 | disposition home or self-care (01) ==
LOC: ED 12:22
DX: N83.201 Unspecified ovarian cyst, right side (principal); F17.200 Nicotine dependence, unspecified, uncomplicated; Z88.8 Allergy status to other drugs, medicaments and biological substances; Z79.4 Long term (current) use of insulin; Z79.899 Other long term (current) drug therapy; Z90.49 Acquired absence of other specified parts of digestive tract; Z98.890 Other specified postprocedural states

== ENCOUNTER 2022-09-08 12:27 | Emergency (ER) | payer OTHER ==
[~2022-09-08] VITALS: Ht 157.4 cm; Wt 59.0 kg
[2022-09-08 12:40] VITALS: BP 121/76
[2022-09-08 13:24] LABS: BASO # 0.2 10*3/uL (0.0-0.1); BASO % 1.2 % (0.0-1.0); EOS # 0.7 10*3/uL (0.0-0.4); EOS % 4.6 % (1.0-4.0); HEMATOCRIT 45.5 % (37.0-47.0); LYMPH # 4.6 10*3/uL (1.3-4.4); LYMPH % 32.8 % (27.0-41.0); MEAN CELL VOLUME 95.6 fl (81.0-99.0); MEAN CORPUSCULAR HGB 31.5 pg (27.0-31.0); MEAN PLATELET VOLUME 11.5 fl (9.6-12.3); MONO # 0.7 10*3/uL (0.1-1.0); NEUT # 7.9 10*3/uL (2.3-7.9); PLATELET COUNT AUTOMATED 379 10*3/uL (130-400); RED BLOOD COUNT 4.76 10*6/uL (4.10-5.10); RED CELL DISTRI WIDTH 12.4 % (0-14.5); WHITE BLOOD COUNT 14.1 10*3/uL (4.8-10.8)
[2022-09-08 13:45] LABS: ALKALINE PHOSPHATASE 46 U/L (46-116); BUN 16 mg/dl (9-23); CHLORIDE 97 mmol/L (98-107); POTASSIUM 3.8 mmol/L (3.4-5.1); SGPT/ALT 31 U/L (10-49); TOTAL PROTEIN 8.5 gm/dL (6.0-8.0)
[2022-09-08] MEDS ORDERED: HYDROCODONE-AC1 EAC1 PO (14:53)
== END 2022-09-08 14:53 ==
LOC: ED
PROVIDERS: Emergency Medicine
DX: D25.9 Leiomyoma of uterus, unspecified (principal); R11.2 Nausea with vomiting, unspecified; F17.200 Nicotine dependence, unspecified, uncomplicated; Z88.1 Allergy status to other antibiotic agents; Z88.8 Allergy status to other drugs, medicaments and biological substances; Z79.2 Long term (current) use of antibiotics; Z79.899 Other long term (current) drug therapy; Z79.4 Long term (current) use of insulin; Z90.49 Acquired absence of other specified parts of digestive tract; Z98.890 Other specified postprocedural states; Z98.51 Tubal ligation status

== ENCOUNTER 2022-10-14 12:00 | Emergency (ER) | payer OTHER ==
[~2022-10-14] VITALS: Ht 157.4 cm; Wt 57.6 kg
[2022-10-14 12:28] VITALS: BP 135/74
[2022-10-14] MEDS ORDERED: TRAMADOL HCL50 MG PO (13:25)
== END 2022-10-14 13:40 | disposition home or self-care (01) ==
LOC: ED 12:00
DX: S90.32XA Contusion of left foot, initial encounter (principal); M25.552 Pain in left hip; J44.9 Chronic obstructive pulmonary disease, unspecified; F41.9 Anxiety disorder, unspecified; G43.909 Migraine, unspecified, not intractable, without status migrainosus; K21.9 Gastro-esophageal reflux disease without esophagitis; E78.00 Pure hypercholesterolemia, unspecified; I10 Essential (primary) hypertension; E11.9 Type 2 diabetes mellitus without complications; E78.5 Hyperlipidemia, unspecified; F31.9 Bipolar disorder, unspecified; Z88.8 Allergy status to other drugs, medicaments and biological substances; Z88.6 Allergy status to analgesic agent; Z90.49 Acquired absence of other specified parts of digestive tract; Z98.890 Other specified postprocedural states; Z98.51 Tubal ligation status; W22.8XXA Striking against or struck by other objects, initial encounter; Y93.89 Activity, other specified; Y92.89 Other specified places as the place of occurrence of the external cause; Y99.8 Other external cause status

== ENCOUNTER → 2022-10-27 | Outpatient (CLI) | payer OTHER ==
[2022-10-27 08:13] LABS: BILIRUBIN Negative (Negative); BLOOD Negative (Negative); CLARITY Clear (Clear); COLOR Yellow (Yellow); GLUCOSE Negative (Negative); KETONE Negative (Negative); LEUKO ESTERASE Negative (Negative); NITRITE Negative (Negative); SPECIFIC GRAVITY 1.025 (1.001-1.030)
[2022-10-27 08:41] LABS: BACTERIA 1+; EPITHELIAL CELLS TNTC; RBC 0-2 rbc/hpf (0-2); YEAST 1+
[2022-10-27 08:42] LABS: BUN 19 mg/dl (9-23); CHLORIDE 100 mmol/L (98-107); FREE T4 1.07 ng/dl (0.89-1.76); POTASSIUM 3.7 mmol/L (3.4-5.1)
== END | disposition home or self-care (01) ==
LOC: LAB 10-26 01:47
PROVIDERS: ATTEND Internal Medicine
DX: E11.65 Type 2 diabetes mellitus with hyperglycemia (principal); E11.40 Type 2 diabetes mellitus with diabetic neuropathy, unspecified; E61.1 Iron deficiency; E55.9 Vitamin D deficiency, unspecified; E78.5 Hyperlipidemia, unspecified

== ENCOUNTER → 2022-10-31 | Outpatient (CLI) | payer OTHER | END | disposition home or self-care (01) | LOC: US 13:30 | PROVIDERS: ATTEND Podiatrist | DX: M79.605 Pain in left leg (principal); R06.02 Shortness of breath; R60.9 Edema, unspecified ==

== ENCOUNTER 2023-10-12 09:02 | Emergency (ER) | payer OTHER ==
[~2023-10-12] VITALS: Ht 165.1 cm; Wt 72.6 kg
[~2023-10-12 09:02] MED LIST changes: +PRAZOSIN HCL2 MG PO
[2023-10-12 09:11] VITALS: BP 164/67
[2023-10-12] MEDS ORDERED: Lactated Ringer's Solution 1,000 ML IV SCH (09:25)
[2023-10-12 09:56] LABS: BASO # 0.1 10*3/uL (0.0-0.1); BASO % 0.9 % (0.0-1.0); EOS # 0.5 10*3/uL (0.0-0.4); EOS % 5.4 % (1.0-4.0); HEMATOCRIT 44.7 % (37.0-47.0); LYMPH # 3.9 10*3/uL (1.3-4.4); LYMPH % 38.8 % (27.0-41.0); MEAN CELL VOLUME 89.9 fl (81.0-99.0); MEAN CORPUSCULAR HGB 30.6 pg (27.0-31.0); MONO # 0.6 10*3/uL (0.1-1.0); MONO % 5.9 % (3.0-9.0); NEUT # 4.9 10*3/uL (2.3-7.9); NEUT % 48.8 % (47.0-73.0); PLATELET COUNT AUTOMATED 276 10*3/uL (130-400); RED BLOOD COUNT 4.97 10*6/uL (4.10-5.10); RED CELL DISTRI WIDTH 12.7 % (0-14.5)
[2023-10-12 10:18] LABS: ALKALINE PHOSPHATASE 92 U/L (46-116); BUN 11 mg/dl (9-23); CHLORIDE 101 mmol/L (98-107); LIPASE 49 U/L (12-53); POTASSIUM 4.2 mmol/L (3.4-5.1); SGPT/ALT 42 U/L (5-49); TOTAL PROTEIN 7.9 gm/dL (6.0-8.0)
[2023-10-12] MEDS ORDERED: Lidocaine Hydrochloride 15 ML UDC PO ONE (10:40)
[2023-10-12] MEDS ORDERED: MG-AL HYDROXIDE/SIMETICONE 30 ML UDC PO ONE (10:40)
[2023-10-12] MEDS ORDERED: Carafate1 GM PO (11:17)
== END 2023-10-12 12:22 | disposition home or self-care (01) ==
LOC: ED 09:02
PROVIDERS: Emergency Medicine
DX: E11.65 Type 2 diabetes mellitus with hyperglycemia (principal); R42 Dizziness and giddiness; R10.13 Epigastric pain; R11.2 Nausea with vomiting, unspecified; I10 Essential (primary) hypertension; J44.9 Chronic obstructive pulmonary disease, unspecified; F31.9 Bipolar disorder, unspecified; F41.9 Anxiety disorder, unspecified; G43.909 Migraine, unspecified, not intractable, without status migrainosus; K21.9 Gastro-esophageal reflux disease without esophagitis; E78.00 Pure hypercholesterolemia, unspecified; Z88.8 Allergy status to other drugs, medicaments and biological substances; Z88.6 Allergy status to analgesic agent; Z90.49 Acquired absence of other specified parts of digestive tract; Z98.890 Other specified postprocedural states; Z98.51 Tubal ligation status

== ENCOUNTER 2024-02-24 18:12 | Emergency (ER) | payer OTHER ==
[~2024-02-24] VITALS: Ht 157.4 cm; Wt 66.7 kg
[~2024-02-24 18:12] MED LIST changes: +Carafate1 GM PO
[2024-02-24 18:19] VITALS: BP 147/88
[2024-02-24 18:51] LABS: BASO # 0.1 10*3/uL (0.0-0.1); BASO % 0.7 % (0.0-1.0); EOS # 0.3 10*3/uL (0.0-0.4); EOS % 3.2 % (1.0-4.0); HEMATOCRIT 45.4 % (37.0-47.0); MEAN CELL VOLUME 90.6 fl (81.0-99.0); MEAN CORPUSCULAR HGB 29.1 pg (27.0-31.0); MEAN CORPUSCULAR HGB CONC 32.2 g/dl (33.0-37.0); MEAN PLATELET VOLUME 11.4 fl (9.6-12.3); MONO # 0.4 10*3/uL (0.1-1.0); MONO % 4.9 % (3.0-9.0); NEUT # 4.2 10*3/uL (2.3-7.9); NEUT % 46.5 % (47.0-73.0); PLATELET COUNT AUTOMATED 263 10*3/uL (130-400); RED BLOOD COUNT 5.01 10*6/uL (4.10-5.10); RED CELL DISTRI WIDTH 13.5 % (0-14.5); WHITE BLOOD COUNT 9.1 10*3/uL (4.8-10.8)
[2024-02-24 19:15] LABS: BUN 7 mg/dl (9-23); CHLORIDE 99 mmol/L (98-107); POTASSIUM 2.9 mmol/L (3.4-5.1)
[2024-02-24] MEDS ORDERED: POTASSIUM CHLORIDE 20 MEQ TAB PO ONE (19:40)
[2024-02-24] MEDS ORDERED: PAXLOVID 300-11 EAC3 PO (19:59)
== END 2024-02-24 20:07 | disposition home or self-care (01) ==
LOC: ED 18:12
PROVIDERS: Nurse Practitioner Family
DX: U07.1 COVID-19 (principal); E87.6 Hypokalemia; I10 Essential (primary) hypertension; J44.9 Chronic obstructive pulmonary disease, unspecified; F31.9 Bipolar disorder, unspecified; E11.40 Type 2 diabetes mellitus with diabetic neuropathy, unspecified; F41.9 Anxiety disorder, unspecified; E78.00 Pure hypercholesterolemia, unspecified; G43.909 Migraine, unspecified, not intractable, without status migrainosus; K21.9 Gastro-esophageal reflux disease without esophagitis; Z88.8 Allergy status to other drugs, medicaments and biological substances; Z88.6 Allergy status to analgesic agent; Z90.49 Acquired absence of other specified parts of digestive tract; Z98.890 Other specified postprocedural states; Z98.51 Tubal ligation status